=== PATIENT | male | born 1995 | race Caucasian/White ===

== ENCOUNTER 2018-01-28 19:59 | Observation (INO) | payer OTHER ==
--- NOTE | 2018-01-28 20:17 | ER Document Report ---
ED General - General Chief Complaint: Overdose Stated Complaint: POSSIBLE OVERDOSE Time Seen by Provider: 01/28/18 20:16 Mode of Arrival: Medic Information source: Patient Notes: 23-year-old male brought to the emergency department by EMS for heroin overdose. Patient had track fuller in his right forearm. He was found unresponsive with apneic breathing. EMS gave the patient a total of 4 of Narcan. In the emergency department, patient is awake, alert, oriented 3. He has no complaints at this time. He admits to injecting heroin into his forearm. He denies any other drug use. He denies any alcohol. - HPI Onset: Just prior to arrival Onset/Duration: Sudden Quality of pain: No pain Severity: None Pain Level: Denies Associated symptoms: None Exacerbated by: Denies Relieved by: Denies Similar symptoms previously: No Recently seen / treated by doctor: No - Related Data Allergies/Adverse Reactions: No Known Allergies Allergy (Unverified 01/29/18 00:21) Past Medical History - General Information source: Patient - Social History Smoking Status: Current Every Day Smoker Family History: Reviewed & Not Pertinent Review of Systems - Review of Systems Constitutional: No symptoms reported EENT: No symptoms reported Cardiovascular: No symptoms reported Respiratory: No symptoms reported Gastrointestinal: No symptoms reported Genitourinary: No symptoms reported Musculoskeletal: No symptoms reported Skin: No symptoms reported Neurological/Psychological: No symptoms reported -: Yes All other systems reviewed and negative Physical Exam - Vital signs Vitals: Pulse 116 H 01/28/18 20:12 - Notes Notes: PHYSICAL EXAMINATION: GENERAL: Well-appearing, well-nourished and in no acute distress. HEAD: Atraumatic, normocephalic. EYES: Pupils equal round and reactive to light, extraocular movements intact, sclera anicteric, conjunctiva are normal. ENT: Nares patent, oropharynx clear without exudates. Moist mucous membranes. NECK: Normal range of motion, supple without lymphadenopathy LUNGS: Breath sounds clear to auscultation bilaterally and equal. No wheezes rales or rhonchi. HEART: Tachycardic. ABDOMEN: Soft, nontender, nondistended abdomen. No guarding, no rebound. No masses appreciated. Musculoskeletal: Normal range of motion, no pitting or edema. No cyanosis. NEUROLOGICAL: Cranial nerves grossly intact. Normal speech, normal gait. Normal sensory, motor exams PSYCH: Normal mood, normal affect. SKIN: Warm, Dry, normal turgor, tract fuller of R forearm. Course - Re-evaluation Re-evalutation: 01/28/18 23:24 Patient has no complaints of chest pain. His troponin is elevated. No ST segment elevation seen on his EKG. I contacted the hospitalist for admission. 01/28/18 23:42 The hospitalist came to the ED to evaluate the patient. He would like a second troponin. If the troponin is negative with a normal EKG, he recommends discharge home. If the troponin is trending up, he will admit the patient. 01/29/18 00:44 Patient's troponin elevating. Still no chest pain. Hospitalist will admit patient for further evaluation. Patient currently stable. - Vital Signs Vital signs: Temp Pulse Resp BP Pulse Ox 116 H 01/28/18 20:12 - Laboratory Result Diagrams: 01/28/18 20:03 01/28/18 20:03 Laboratory results interpreted by me: 01/28/18 01/28/18 20:03 20:03 WBC 12.6 H Seg Neuts % (Manual) 89 H Lymphocytes % (Manual) 7 L Abs Neuts (Manual) 11.2 H Glucose 170 H - EKG Interpretation by Me Additional EKG results interpreted by me: 01/28/18 20:17 EKG: Ventricular rate 115, ME interval 152, castration 94, QTc 437, sinus tachycardia, right axis deviation 01/28/18 23:24 EKG: Ventricular rate 94, ME interval 148, castration 90, QTc 416, sinus rhythm , right axis deviation. Discharge - Discharge Clinical Impression: Heroin overdose Qualifiers: Encounter type: initial encounter Injury intent: accidental or unintentional Qualified Code(s): T40.1X1A - Poisoning by heroin, accidental (unintentional), initial encounter Condition: Good Disposition: ADMITTED OBSERVATION Admitting Provider: Hospitalist Unit Admitted: Telemetry
[2018-01-28] MEDS ORDERED: NORMAL SALINE 1000 ML 1,000 ML IV ONE (20:23)
[2018-01-28 20:34] LABS: HEMATOCRIT 44.6 % (37.9-51.0); HEMOGLOBIN 15.1 g/dL (13.5-17.0); MEAN CORPUSCULAR HEMOGLOBIN 29.3 pg (27.0-33.4); MEAN CORPUSCULAR HGB CONC 33.9 g/dL (32.0-36.0); MEAN CORPUSCULAR VOLUME 86 fl (80-97); PLATELET COUNT 190 10^3/uL (150-450); RED BLOOD COUNT 5.16 10^6/uL (4.35-5.55); WHITE BLOOD COUNT 12.6 10^3/uL (4.0-10.5)
[2018-01-28 20:46] LABS: ALANINE AMINOTRANSFERASE 70 U/L (21-72); ALBUMIN 3.7 g/dL (3.5-5.0); ALKALINE PHOSPHATASE 80 U/L (38-126); ANION GAP 12 (5-19); ASPARTATE AMINO TRANSFERASE 57 U/L (17-59); BILIRUBIN,DIRECT 0.4 mg/dL (0.0-0.4); BILIRUBIN,TOTAL 0.8 mg/dL (0.2-1.3); BLOOD UREA NITROGEN 7 mg/dL (7-20); CALCIUM 8.7 mg/dL (8.4-10.2); CARBON DIOXIDE 28 mmol/L (22-30); CHLORIDE 100 mmol/L (98-107); GLUCOSE 170 mg/dL (75-110); POTASSIUM 4.2 mmol/L (3.6-5.0); SODIUM 140.2 mmol/L (137-145); TOTAL PROTEIN 6.3 g/dL (6.3-8.2)
[2018-01-28 20:51] LABS: ABSOLUTE LYMPHOCYTES# (MANUAL) 0.9 10^3/uL (0.5-4.7); ABSOLUTE MONOCYTES # (MANUAL) 0.5 10^3/uL (0.1-1.4); ABSOLUTE NEUTROPHILS# (MANUAL) 11.2 10^3/uL (1.7-8.2); BASOPHILS % (MANUAL) 0 % (0-2); EOSINOPHILS % (MANUAL) 0 % (0-6); LYMPHOCYTES % (MANUAL) 7 % (13-45); MONOCYTES % (MANUAL) 4 % (3-13); SEGMENTED NEUTROPHILS % (MAN) 89 % (42-78); TOTAL CELLS COUNTED 100
[2018-01-28 20:53] LABS: PLATELET COMMENT ADEQUATE; RBC MORPHOLOGY COMMENT NORMO-CYTIC/CHROMIC
--- NOTE | 2018-01-28 23:00 | EKG REPORT ---
SEVERITY:- OTHERWISE NORMAL ECG - SINUS TACHYCARDIA RIGHT AXIS DEVIATION : Confirmed by: Rachelle Dawson MD 28-Jan-2018 22:59:37
--- NOTE | 2018-01-28 23:00 | EKG REPORT ---
SEVERITY:- OTHERWISE NORMAL ECG - SINUS RHYTHM BORDERLINE RIGHT AXIS DEVIATION : Confirmed by: Rachelle Dawson MD 28-Jan-2018 22:59:32
[2018-01-29] MEDS ORDERED: ONDANSETRON 4 MG TAB.RAPDIS PO PRN (01:14)
[2018-01-29] MEDS ORDERED: OXYCODONE-ACETAMINOPHEN 5-325 MG TABLET PO PRN (01:14)
--- NOTE | 2018-01-29 01:14 | PDOC H&P ---
History of Present Illness History of Present Illness: CHRIS LONDON is a 23 year old male patient brought by EMS unresponsive after he overdosed himself with heroin. After he was given 4 doses of Narcan patient become unresponsive. By the time he arrived which at ER patient is awake alert and oriented. Patient does not have other complaints. His blood work shows initial troponin 0 0.157 and the second set increased to 0.572. Patient does not have chest pain and no EKG changes. Patient does not have other chronic medical conditions and no family history of coronary artery disease. Patient is going to be admitted for observation. Past Medical History Medical History: None Past Surgical History Past Surgical History: Reports: None Social History Smoking Status: Current Every Day Smoker Hx Recreational Drug Use: Yes Drugs: Heroin - Advance Directive Resuscitation Status: Full Code Family History Family History: None, Reviewed & Not Pertinent Parental Family History Reviewed: Yes Children Family History Reviewed: Yes Sibling(s) Family History Reviewed.: Yes Medication/Allergy Allergies/Adverse Reactions: No Known Allergies Allergy (Unverified 01/29/18 00:21) Review of Systems Constitutional: PRESENT: as per HPI Eyes: ABSENT: visual disturbances Ears: ABSENT: hearing changes Cardiovascular: ABSENT: chest pain, dyspnea on exertion, edema, orthropnea, palpitations Respiratory: ABSENT: cough, hemoptysis Gastrointestinal: ABSENT: abdominal pain, constipation, diarrhea, hematemesis, hematochezia, nausea, vomiting Neurological: ABSENT: abnormal gait, abnormal speech, confusion, dizziness, focal weakness, syncope Physical Exam Vital Signs: Temp Pulse Resp BP Pulse Ox 116 H 01/28/18 20:12 Intake & Output 01/27/18 01/28/18 01/29/18 06:59 06:59 06:59 Weight 109.5 kg General appearance: PRESENT: no acute distress Head exam: PRESENT: atraumatic, normocephalic Mouth exam: PRESENT: dry mucosa Neck exam: ABSENT: carotid bruit, JVD, lymphadenopathy, thyromegaly Respiratory exam: PRESENT: clear to auscultation brandon. ABSENT: rales, rhonchi, wheezes Cardiovascular exam: PRESENT: tachycardia Neurological exam: PRESENT: alert, awake, oriented to time, oriented to situation Skin exam: PRESENT: other - Track of needle Kwabena on the volar aspect of his right arm Results Laboratory Results: 01/28/18 20:03 01/28/18 20:03 01/28/18 01/28/18 20:03 20:03 WBC 12.6 H RBC 5.16 Hgb 15.1 Hct 44.6 MCV 86 MCH 29.3 MCHC 33.9 RDW 13.0 Plt Count 190 Seg Neutrophils % Not Reportable Lymphocytes % Not Reportable Monocytes % Not Reportable Eosinophils % Not Reportable Basophils % Not Reportable Absolute Neutrophils Not Reportable Absolute Lymphocytes Not Reportable Absolute Monocytes Not Reportable Absolute Eosinophils Not Reportable Absolute Basophils Not Reportable Sodium 140.2 Potassium 4.2 Chloride 100 Carbon Dioxide 28 Anion Gap 12 BUN 7 Creatinine 0.96 Est GFR ( Amer) > 60 Est GFR (Non-Af Amer) > 60 Glucose 170 H Calcium 8.7 Total Bilirubin 0.8 AST 57 ALT 70 Alkaline Phosphatase 80 Total Protein 6.3 Albumin 3.7 01/28/18 01/28/18 20:03 23:30 Troponin I 0.157 0.572 Assessment & Plan - Diagnosis (1) Unresponsive Is this a current diagnosis for this admission?: Yes Plan: Resolved. Due to #2 (2) Heroin overdose Is this a current diagnosis for this admission?: Yes Plan: Patient counseled and encouraged to quit using illicit drug.
[2018-01-29 01:41] LABS: APPEARANCE,URINE CLEAR; BILIRUBIN,URINE NEGATIVE (NEGATIVE); CALCIUM OXALATE CRYSTALS,URINE RARE /HPF; COLOR,URINE YELLOW; GLUCOSE, URINE 50 mg/dL (NEGATIVE); KETONES,URINE NEGATIVE (NEGATIVE); LEUKOCYTE ESTERASE,URINE NEGATIVE (NEGATIVE); NITRITE,URINE NEGATIVE (NEGATIVE); PROTEIN,URINE NEGATIVE (NEGATIVE); URINE SPECIFIC GRAVITY 1.018
[2018-01-29 01:55] LABS: URINE AMPHETAMINES SCREEN NEGATIVE; URINE BARBITURATES SCREEN NEGATIVE; URINE BENZODIAZEPINES SCREEN NEGATIVE; URINE COCAINE SCREEN NEGATIVE; URINE MARIJUANA (THC) SCREEN UNCONFIRMED POSITIVE; URINE METHADONE SCREEN NEGATIVE; URINE PHENCYCLIDINE SCREEN NEGATIVE
[2018-01-29] MEDS ORDERED: NORMAL SALINE 1000 ML 1,000 ML IV PRN (07:48)
[2018-01-29 08:22] LABS: HEMATOCRIT 40.4 % (37.9-51.0); MEAN CORPUSCULAR HEMOGLOBIN 29.4 pg (27.0-33.4); MEAN CORPUSCULAR HGB CONC 34.7 g/dL (32.0-36.0); MEAN CORPUSCULAR VOLUME 85 fl (80-97); PLATELET COUNT 177 10^3/uL (150-450); RED BLOOD COUNT 4.75 10^6/uL (4.35-5.55); RED CELL DISTRIBUTION WIDTH 12.9 % (11.5-14.0); WHITE BLOOD COUNT 7.1 10^3/uL (4.0-10.5)
[2018-01-29 08:39] LABS: ALANINE AMINOTRANSFERASE 70 U/L (21-72); ALBUMIN 3.3 g/dL (3.5-5.0); ALKALINE PHOSPHATASE 57 U/L (38-126); ANION GAP 6 (5-19); ASPARTATE AMINO TRANSFERASE 52 U/L (17-59); BILIRUBIN,DIRECT 0.2 mg/dL (0.0-0.4); BILIRUBIN,TOTAL 0.9 mg/dL (0.2-1.3); BLOOD UREA NITROGEN 6 mg/dL (7-20); CALCIUM 8.8 mg/dL (8.4-10.2); CARBON DIOXIDE 31 mmol/L (22-30); CHLORIDE 103 mmol/L (98-107); CREATINE KINASE 97 U/L (55-170); GLUCOSE 92 mg/dL (75-110); POTASSIUM 3.7 mmol/L (3.6-5.0); TOTAL PROTEIN 5.8 g/dL (6.3-8.2)
[2018-01-29] MEDS ORDERED: ENOXAPARIN SODIUM INJ 40 MG/0.4 ML DISP.SYRIN SUBCUT SCH (10:00)
--- NOTE | 2018-01-29 12:15 | PDOC DISCHARGE SUMMARY ---
General - Admit/Disc Date/PCP Admission Date/Primary Care Provider: 01/29/18 01:32 Discharge Date: 01/29/18 - Discharge Diagnosis (1) Heroin overdose Is this a current diagnosis for this admission?: Yes (2) Unresponsive Is this a current diagnosis for this admission?: Yes - Additional Information Resuscitation Status: Full Code Discharge Diet: As Tolerated Discharge Activity: Activity As Tolerated Home Medications: No Home Medications 01/29/18 History of Present Illness History of Present Illness: H&P per Dr. Yap: CHRIS LONDON is a 23 year old male patient brought by EMS unresponsive after he overdosed himself with heroin. After he was given 4 doses of Narcan patient become unresponsive. By the time he arrived which at ER patient is awake alert and oriented. Patient does not have other complaints. His blood work shows initial troponin 0 0.157 and the second set increased to 0.572. Patient does not have chest pain and no EKG changes. Patient does not have other chronic medical conditions and no family history of coronary artery disease. Patient is going to be admitted for observation. Hospital Course Hospital Course: The patient was admitted to [facility] hospitalist service for an opiate overdose. He was found down by EMS, unresponsive with agonal breathing. The patient was revived by EMS following administration of (total) 4 mg Narcan. Upon arrival to [facility] ED the patient was A&O. Initial EKG demonstrated sinus tachycardia, no evidence of acute infarction or ischemia. Initial troponin 0.157, repeat troponin 0.572. The patient denied chest pain, but the decision was made to admit the patient to trend rising troponins and observe for EKG changes. The following troponin was 0.45, there were no EKG changes. The patient continued to deny chest pain. Additionally, his creatinine kinase was 97. No evidence of STEMI/NSTEMI or rhabdomyolysis. His repeat EKG the following morning showed NSR, no acute pathology. The patient states he uses heroin every other day to relieve the chronic pain he has in his feet. 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 The patient reports he previously was going to an orthopedic doctor for his foot pain, and they recommended physical therapy and gabapentin. The patient states that these treatments did not relieve his foot pain. The decision was made to discharge the patient home. [place] [facility] [place]. The patient was not sent home with any prescriptions. For any further details about his hospitalization, please refer to the EMR. Physical Exam Vital Signs: Temp Pulse Resp BP Pulse Ox 97.6 F 76 17 115/65 97 01/29/18 11:24 01/29/18 11:24 01/29/18 11:24 01/29/18 11:24 01/29/18 11:24 Intake & Output 01/28/18 01/29/18 01/30/18 06:59 06:59 06:59 Intake Total 100 754 Output Total 350 Balance 100 404 Weight 98.1 kg Results Laboratory Results: 01/29/18 08:03 01/29/18 08:03 01/29/18 01/29/18 08:03 08:03 WBC 7.1 RBC 4.75 Hgb 14.0 Hct 40.4 MCV 85 MCH 29.4 MCHC 34.7 RDW 12.9 Plt Count 177 Sodium 140.0 Potassium 3.7 Chloride 103 Carbon Dioxide 31 H Anion Gap 6 BUN 6 L Creatinine 0.65 Est GFR ( Amer) > 60 Est GFR (Non-Af Amer) > 60 Glucose 92 Calcium 8.8 Total Bilirubin 0.9 AST 52 ALT 70 Alkaline Phosphatase 57 Total Protein 5.8 L Albumin 3.3 L 01/29/18 01/29/18 01/29/18 03:45 08:03 08:03 Creatine Kinase 97 CK-MB (CK-2) 0.81 Troponin I 0.491 Status: Imported from PACS Qualifiers - * PATIENT BEING DISCHARGED WITH ANY OF THE FOLLOWING DIAGNOSIS: No Plan Time Spent: Less than 30 Minutes
[2018-01-29 12:49] VITALS: BP 130/77
--- NOTE | 2018-01-29 19:12 | EKG REPORT ---
SEVERITY:- NORMAL ECG - SINUS RHYTHM : Confirmed by: Rachelle Dawson MD 29-Jan-2018 19:10:49
[2018-01-30 14:38] LABS: HEPATITIS A AB IGM Negative (Negative); HEPATITIS B CORE AB IGM Negative (Negative); HEPATITS B SURFACE ANTIGEN Negative (Negative)
[2018-01-30 14:55] LABS: HEPATITIS C VIRUS ANTIBODY <0.1 s/co ratio (0.0-0.9)
== END 2018-01-29 13:35 | disposition home or self-care (01) ==
LOC: ER 19:59 → EH 01-29 01:32 → 4N 01-29 05:35
PROVIDERS: ADMIT Internal Medicine; ATTEND Internal Medicine
DX: T40.1X1A Poisoning by heroin, accidental (unintentional), initial encounter (principal); F17.200 Nicotine dependence, unspecified, uncomplicated
CPT/HCPCS: 93005 ×2; 99285; 96360; 36415 ×2; 82553; 82550; 85025; 85027; 80053 ×2; 81001; 84484 ×2; 80307; 80074; 93010 ×2; G0378 ×2; J1650; J3490; J7030 ×2

== ENCOUNTER 2018-07-29 13:07 | Emergency (ER) | payer SELFPAY ==
--- NOTE | 2018-07-29 14:43 | ER Document Report ---
ED Medical Screen (RME) - General Chief Complaint: Abscess Stated Complaint: UNDER ARM PAIN Time Seen by Provider: 07/29/18 14:34 Notes: Patient is a 23-year-old male that presents to the emergency department for chief complaint of abscess under the left armpit. Patient states he knows about 1 week ago seem to get worse, he does have a history of this in the past, has had one on the right side.. ROS: Other than noted above, the 12 point review of systems was reviewed with the patient and were negative, all pertinent findings are included in the HPI. PHYSICAL EXAMINATION: Vital signs reviewed. GENERAL: Well-appearing, well-nourished and in no acute distress. HEAD: Atraumatic, normocephalic. EYES: Pupils equal round extraocular movements intact, conjunctiva are normal. ENT: Nares patent NECK: Normal range of motion CV: Heart regular rate and rhythm LUNGS: No respiratory distress Musculoskeletal: Normal range of motion, palpable indurated abscess in the left axilla, visualized under ultrasound, there was a pocket of fluid noted, that could be incised and drained. NEUROLOGICAL: Normal speech PSYCH: Normal mood, normal affect. MDM: Patient seen and examined for rapid initial assessment. Vital signs reviewed. A comprehensive ED assessment and evaluation of the patient, analysis of test results and completion of the medical decision making process will be conducted by additional ED providers. *Note is created using voice recognition software and may contain spelling, syntax or grammatical errors. TRAVEL OUTSIDE OF THE [place] IN LAST 30 DAYS: No - Related Data Allergies/Adverse Reactions: No Known Allergies Allergy (Unverified 01/29/18 00:21) Past Medical History - Social History Chew tobacco use (# tins/day): No Frequency of alcohol use: None Drug Abuse: Marijuana Renal/ Medical History: Denies: Hx Peritoneal Dialysis Psychiatric Medical History: Reports: Hx Depression - Immunizations Influenza Administration Date for 05/2017 - 09/2017 Season: 05/01/17 Physical Exam - Vital signs Vitals: Temp Pulse Resp BP Pulse Ox 98 F 90 16 135/77 H 99 07/29/18 13:44 07/29/18 13:44 07/29/18 13:44 07/29/18 13:44 07/29/18 13:44 Course - Vital Signs Vital signs: Temp Pulse Resp BP Pulse Ox 98 F 90 16 135/77 H 99 07/29/18 13:44 07/29/18 13:44 07/29/18 13:44 07/29/18 13:44 07/29/18 13:44
[2018-07-29] MEDS ORDERED: LIDOCAINE 1% INJ-PF (10 MG/ML) 30 ML SDV INJ ONE (14:48)
--- NOTE | 2018-07-29 17:12 | ER Document Report ---
HPI - HPI Time Seen by Provider: 07/29/18 14:34 Pain Level: 3 Notes: Patient is a 23-year-old male who presents with chief complaint of abscess to his left axilla. Patient reports history of same in the past. Patient reports recent hepatitis C diagnosis. Patient denies any history of MRSA. Reports mild fevers at home. Past Medical History - General Information source: Patient - Social History Smoking Status: Never Smoker Chew tobacco use (# tins/day): No Frequency of alcohol use: None Drug Abuse: Marijuana Family History: None, Reviewed & Not Pertinent Patient has suicidal ideation: No Patient has homicidal ideation: No Renal/ Medical History: Denies: Hx Peritoneal Dialysis Psychiatric Medical History: Reports: Hx Depression Infectious Medical History: Reports: Hx Hepatitis - C Surgical Hx: Negative - Immunizations Immunizations up to date: Yes Vertical Provider Document - CONSTITUTIONAL Notes: PHYSICAL EXAMINATION: GENERAL: Well-appearing, well-nourished and in no acute distress. HEAD: Atraumatic, normocephalic. EYES: Pupils equal round extraocular movements intact, conjunctiva are normal. ENT: Nares patent NECK: Normal range of motion LUNGS: No respiratory distress Musculoskeletal: Normal range of motion NEUROLOGICAL: Normal speech, normal gait. PSYCH: Normal mood, normal affect. SKIN: Warm, Dry, normal turgor, no rashes or lesions noted. Area of induration with fluctuance noted to left axilla, surrounding erythema extending down into the bicep. - INFECTION CONTROL TRAVEL OUTSIDE OF THE [place] IN LAST 30 DAYS: No Course - Re-evaluation Re-evalutation: Abscess was incised and drained, see procedure note. Patient tolerated well. Patient will be placed on p.o. antibiotics and discharged home. Discussed the importance of adherence to the antibiotic regimen in completing the entire course. - Vital Signs Vital signs: Temp Pulse Resp BP Pulse Ox 98 F 90 16 135/77 H 99 07/29/18 13:44 07/29/18 13:44 07/29/18 13:44 07/29/18 13:44 07/29/18 13:44 Procedures - Incision and Drainage Left axilla Type: Simple Anesthetic type: 1% Lidocaine Blade size: 11 I&D procedure: Betadine prep applied Incision Method: Incision made by scalpel Discharge - Discharge Clinical Impression: Abscess Condition: Stable Disposition: HOME, SELF-CARE Additional Instructions: ABSCESS: You have an abscess (boil). This a pus-forming infection, usually due to staph. Some boils may be left to drain on their own, but most require lancing. From the time the tender lump first appears, it may be three or four days before the abscess is ready to whitley. Local heat and rest help at this stage of treatment. An antibiotic may prevent spread of the infection. Once the abscess is opened, packing may be placed into it. This is done so pus is not sealed inside by premature closure of the cavity. The packing will be removed at your follow-up visit or you may be advised to remove it yourself at home. Sometimes this packing must be replaced a few times during healing. The wound will heal with surprisingly little scar. Depending on the size and location of an abscess, healing can take one to four weeks. You may shower and wash the area around the incision site two or three times a day. Antibiotics may be prescribed, but are usually not necessary after an abscess has been drained. If you develop fever, chills, worsening pain, or increasing swelling in the area, call the doctor or return immediately. POST INCISION AND DRAINAGE: You have had an incision made to allow drainage of an abscess. The incision must remain open so that pus and debris can drain from the wound. If the abscess cavity is large, packing is placed. This keeps the tissues from collapsing and trapping pus inside, while the body shrinks the cavity. The packing may need to be replaced every day or two. The physician will instruct you on the packing. Keep a bulky dressing over the area. Replace it if it becomes saturated with blood or pus. Do not disturb the packing (if present). You may shower and cleanse the area with gentle soap and warm water two or three times a day. Local warmth may be soothing, and may promote faster healing. Return if you develop high fever or chills, or if you note spreading redness, increasing swelling, or increasing tenderness. MRSA CELLULITIS: You have an infection of your skin and underlying soft tissues called cellulitis. This is due to bacteria, which can enter through any break in the skin, or even through an irritated hair follicle. Untreated, cellulitis will usually worsen and may form an abscess which requires draining. Although many bacterial organisms can cause cellulitis and abscess formations, the most likely bacteria is Methicillin-Resistant Staph Aureus, or MRSA for short. Antibiotics are required. Usually, warm packs or warm soaks, and elevation of the infected area are recommended. You should start getting better within 24 to 36 hours. Most infections respond quickly to the right medication. Follow-up care is important, however, to check for abscess (boil) formation, unsuspected foreign body, or resistant infection. If you develop fever, chills, or if the area of infection is becoming rapidly more swollen or painful, call the doctor at once. CEPHALEXIN: The antibiotic you've been prescribed is a member of the cephalosporin class. This type of antibiotic covers a wide variety of infections, including those of the skin, lungs, and urinary tract. It's useful for staph infections. This antibiotic is slightly similar to the penicillin family. In rare cases, a person who is allergic to penicillin will also be allergic to this medication. If you have had a severe allergic reaction to penicillin, and have not taken this antibiotic since that time, notify your doctor. Antibiotics which cover many germs ("broad spectrum" antibiotics) are more likely to cause diarrhea or "yeast" infections. Women prone to vaginal yeast problems may suffer an attack after taking this antibiotic. In infants, oral thrush (white spots "stuck" on the cheek) or yeast diaper rash may result. See your doctor if these problems occur. Call at once if you develop itching, hives, shortness of breath, or lightheadedness. TRIMETHOPRIM-SULFA: You have been given a prescription for trimethoprim-sulfa (TMS, Septra, Bactrim). This is a combination antibiotic of the sulfa class, often used for urinary tract infections, middle ear infections, bronchitis, shigella intestinal infection, and Pneumocystis pneumonia. TMS is usually well-tolerated. Occasional side effects include nausea and decreased appetite. Septra is not recommended for infants less than two months of age. Do not take this medication if you have experienced severe side effects or allergy to sulfa medicine. You should stop this medicine at once and contact your physician if you develop any rash, joint pain, shortness of breath, bruising, or jaundice (yellow color in the skin), or if you develop any other new or unusual symptoms. FOLLOW-UP CARE: Most simple abscesses will not require a follow up visit. If you had packing placed in the abscess, remove it as instructed by the physician. If you have been referred to a physician for follow-up care, call the physicians office for an appointment as you were instructed or within the next two days. If you experience worsening or a significant change in your symptoms, return to the Emergency Department at any time for re-evaluation. Please complete the entire course of antibiotics even if your symptoms resolve. Soak the area in warm water at least 3 times a day. It would be hel pful if you added some Epsom salt to the water. Return to the emergency department if you develop worsening symptoms such as development of fevers, worsening pain or red streaking from the area. Prescriptions: Cephalexin [Cephalexin 500 MG Tablet] 1 tab PO QID #40 tablet Sulfamethoxazole/Trimethoprim [Bactrim Ds Tablet] 1 tab PO BID #28 tablet
[2018-07-29 17:23] VITALS: BP 135/72
== END 2018-07-29 17:23 | disposition home or self-care (01) ==
LOC: ER 13:07
PROC: 0H9CXZZ Drainage of Left Upper Arm Skin, External Approach (ICD-10-PCS; principal; 2018-07-29)
DX: L02.412 Cutaneous abscess of left axilla (principal); R50.9 Fever, unspecified; B19.20 Unspecified viral hepatitis C without hepatic coma
CPT/HCPCS: 99283; 10060; J3490

== ENCOUNTER 2019-11-19 13:17 | Emergency (ER) | payer SELFPAY ==
[2019-11-19] MEDS ORDERED: OXYCODONE HCL IR 5 MG TABLET PO ONE (13:30)
--- NOTE | 2019-11-19 13:32 | ER Document Report ---
HPI - HPI Time Seen by Provider: 11/19/19 13:28 Onset: Other - 5 days ago Onset/Duration: Persistent Quality of pain: Sharp Pain Level: 4 Context: Patient states that he was trying to repair a roof 5 days ago and slipped falling from the roof. Patient reports falling about 15 foot onto a gravel surface landing on the left lower extremity. Patient complains of left foot, ankle, lower leg pain. Patient denies any head injury or loss of consciousness. Associated Symptoms: Other - Left leg and foot pain Exacerbated by: Standing, Movement, Walking Relieved by: Denies Similar symptoms previously: No Recently seen / treated by doctor: No - ROS ROS below otherwise negative: Yes Systems Reviewed and Negative: Yes All other systems reviewed and negative - NEURO Neurology: DENIES: Headache, Weakness - GASTROINTESTINAL Gastrointestinal: DENIES: Nausea - MUSCULOSKELETAL Musculoskeletal: REPORTS: Extremity pain, Swelling - DERM Skin Color: Ecchymosis Skin Problems: None Past Medical History - General Information source: Patient - Social History Smoking Status: Current Every Day Smoker Chew tobacco use (# tins/day): No Frequency of alcohol use: None Drug Abuse: None Lives with: Family Family History: None, Reviewed & Not Pertinent Patient has suicidal ideation: No Patient has homicidal ideation: No Renal/ Medical History: Denies: Hx Peritoneal Dialysis GI Medical History: Reports: Hx Hepatitis - C Psychiatric Medical History: Reports: Hx Depression Infectious Medical History: Reports: Hx Hepatitis - C Surgical Hx: Negative - Immunizations Immunizations up to date: Yes Vertical Provider Document - CONSTITUTIONAL Agree With Documented VS: Yes Exam Limitations: No Limitations General Appearance: WD/WN, No Apparent Distress - INFECTION CONTROL TRAVEL OUTSIDE OF THE [place] IN LAST 30 DAYS: No - HEENT HEENT: Atraumatic, Normocephalic - NECK Neck: Normal Inspection, Supple - RESPIRATORY Respiratory: Breath Sounds Normal, No Respiratory Distress, Chest Non-Tender - CARDIOVASCULAR Cardiovascular: Regular Rate, Regular Rhythm, No Murmur Pulses: Normal: Dorsalis pedis - BACK Back: Abnormal Inspection - Left lower lumbar paraspinal tenderness. negative: CVA Tenderness-Right, CVA Tenderness-Left - MUSCULOSKELETAL/EXTREMETIES Musculoskeletal/Extremeties: Tender - Tenderness to distal half of the left lower extremity with swelling noted to the distal third of the left lower extremity. 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 Umana. Awaiting return call at this time for consultation. 11/19/19 16:[address] Umana who recommends CT imaging of the injury and placing patient in a posterior splint. Advises outpatient follow-up in the office for further management. - Vital Signs Vital signs: Temp Pulse Resp BP Pulse Ox 97.4 F 97 17 141/75 H 97 11/19/19 13:21 11/19/19 13:21 11/19/19 13:21 11/19/19 13:21 11/19/19 13:21 - Diagnostic Test Radiology reviewed: Image reviewed, Reports reviewed Procedures - Immobilization Left Ankle Pre-Proc Neuro Vasc Exam: Normal Immobilizer type: Short Leg Posterior Performed by: PCT Post-Proc Neuro Vasc Exam: Normal Alignment checked and good: Yes Discharge - Discharge Clinical Impression: Fall from roof Qualifiers: Encounter type: initial encounter Qualified Code(s): W13.2XXA - Fall from, out of or through roof, initial encounter Talus fracture Qualifiers: Encounter type: initial encounter Fracture type: closed Talus location: neck Fracture alignment: nondisplaced Laterality: left Qualified Code(s): S92.115A - Nondisplaced fracture of neck of left talus, initial encounter for closed fracture Low back pain Qualifiers: Chronicity: unspecified Back pain laterality: left Sciatica presence: without sciatica Qualified Code(s): M54.5 - Low back pain Condition: Stable Disposition: HOME, SELF-CARE Instructions: Use of Crutches ([facility]), Fracture ([facility]), Low Back Pain ([facility]), Oral Narcotic Medication ([facility]), Splint Precautions ([facility]) Additional Instructions: Return immediately for any new or worsening symptoms Followup with Dr. Umana for further evaluation. This injury will likely require surgery. Prescriptions: Naproxen [Naprosyn 250 Nmg Tablet] 1 tab PO BID #14 tablet Hydrocodone/Acetaminophen [[place] 5-325 mg Tablet] 1 tab PO Q6 PRN #15 tablet PRN Reason: Referrals: FINA UMANA DO [ACTIVE STAFF] - Follow up tomorrow
--- NOTE | 2019-11-19 14:25 | RADIOLOGY REPORT (SQ) ---
EXAM DESCRIPTION: FOOT LEFT COMPLETE IMAGES COMPLETED DATE/TIME: 11/19/2019 2:04 pm REASON FOR STUDY: fall from roof, L foot/ankle pain COMPARISON: None. NUMBER OF VIEWS: Three views. TECHNIQUE: AP, lateral and oblique radiographic images acquired of the left foot. LIMITATIONS: None. FINDINGS: MINERALIZATION: Normal. BONES: Vertically oriented fracture through the talar neck without significant angulation or displace ment. No additional fractures identified. JOINTS: No dislocation. Small ankle joint effusion. SOFT TISSUES: Soft tissue swelling about the ankle. OTHER: No other significant finding. IMPRESSION: Vertically oriented fracture through the talar neck without significant angulation or di splacement. TECHNICAL DOCUMENTATION: JOB ID: [id number] 2010 [employer]- All Rights Reserved Reading location - IP/workstation name: [email or web address]
--- NOTE | 2019-11-19 14:27 | RADIOLOGY REPORT (SQ) ---
EXAM DESCRIPTION: TIBIA FIBULA LEFT IMAGES COMPLETED DATE/TIME: 11/19/2019 2:04 pm REASON FOR STUDY: fall from roof, LLE pain COMPARISON: None. NUMBER OF VIEWS: Two views. TECHNIQUE: Two radiographic images acquired of the left tibia and fibula to include the knee and ank le in at least one projection. LIMITATIONS: None. FINDINGS: MINERALIZATION: Normal. BONES: No fracture or dislocation of the tibia or fibula. Sclerotic band and lucency along the root, better seen on same day ankle radiographs. SOFT TISSUES: No obvious swelling or foreign body. OTHER: No other significant finding. IMPRESSION: No fracture or dislocation of the tibia or fibula. Vertically oriented fracture through the talar neck, better seen on same day ankle radiograph. TECHNICAL DOCUMENTATION: JOB ID: [id number] 2010 [employer]- All Rights Reserved Reading location - IP/workstation name: [email or web address]
--- NOTE | 2019-11-19 14:31 | RADIOLOGY REPORT (SQ) ---
EXAM DESCRIPTION: L SPINE WHOLE IMAGES COMPLETED DATE/TIME: 11/19/2019 2:04 pm REASON FOR STUDY: fall from roof, L lower back pain COMPARISON: None. NUMBER OF VIEWS: Five views including obliques. TECHNIQUE: AP, lateral, oblique, and sacral radiographic images acquired of the lumbar spine. LIMITATIONS: None. FINDINGS: MINERALIZATION: Normal. SEGMENTATION: 5 [id number]-[id number] lumbar vertebral bodies. ALIGNMENT: Normal. VERTEBRAE: No definite fracture. Mild anterior wedging at T12 and L1, likely physiologic. Multileve l endplate irregularity throughout the lumbar spine. DISCS: Mild degenerative changes with disc height loss at L3-4, L4-5 and L5-S1. POSTERIOR ELEMENTS: Pedicles and facets are intact. No pars defect or posterior arch defects. HARDWARE: None in the spine. PARASPINAL SOFT TISSUES: Normal. PELVIS: Intact as visualized. No fractures or worrisome bone lesions. SI joints intact. OTHER: No other significant finding. IMPRESSION: 1. Mild anterior wedging at T12 and L1 which is favored to be physiologic. If high cli nical concern for acute traumatic injury recommend MRI. 2. Mild disc height loss from L3-S1. TECHNICAL DOCUMENTATION: JOB ID: [id number] 2010 [employer]- All Rights Reserved Reading location - IP/workstation name: [email or web address]
--- NOTE | 2019-11-19 14:49 | RADIOLOGY REPORT (SQ) ---
EXAM DESCRIPTION: ANKLE LEFT COMPLETE IMAGES COMPLETED DATE/TIME: 11/19/2019 2:04 pm REASON FOR STUDY: fall from roof, L ankle/foot pain COMPARISON: None. NUMBER OF VIEWS: Three views. TECHNIQUE: AP, lateral, and oblique radiographic images acquired of the left ankle. LIMITATIONS: None. FINDINGS: MINERALIZATION: Normal. BONES: Vertically oriented fracture through the talar neck without significant displacement JOINTS: No effusions. SOFT TISSUES: No soft tissue swelling. No foreign body. OTHER: No other significant finding. IMPRESSION: Vertically oriented fracture through the talar neck without significant displacement. TECHNICAL DOCUMENTATION: JOB ID: [id number] 2010 [employer]- All Rights Reserved Reading location - IP/workstation name: [email or web address]
--- NOTE | 2019-11-19 16:02 | RADIOLOGY REPORT (SQ) ---
EXAM DESCRIPTION: MRI LUMBAR SPINE WITHOUT IMAGES COMPLETED DATE/TIME: 11/19/2019 3:34 pm REASON FOR STUDY: eval t12-L1, low back pain, fall from roof COMPARISON: None. TECHNIQUE: Sagittal and Axial imaging includes T1, T2, STIR and gradient echo sequences. Coronal T2/ HASTE imaging. LIMITATIONS: None. FINDINGS: VISUALIZED UPPER ABDOMEN: Limited evaluation. No acute or suspicious findings suggested. SEGMENTATION: No transitional anatomy. The lowest well-developed disc space is labeled L5-S1. ALIGNMENT: Straightening of the normal lumbar lordosis. VERTEBRAE: There is multilevel endplate change with multiple Schmorl's nodes noted throughout the ent gabby lumbar spine. No definite compression fracture. BONE MARROW: Multilevel Schmorl's node. No marrow replacement process. No definitive bony edema. DISC SIGNAL: There is multilevel disc desiccation and disc height loss throughout the lumbar spine wi th Schmorl's nodes. No high-grade spinal canal stenosis. POSTERIOR ELEMENTS: Generally intact. No pars defect evident. HARDWARE: None in the spine. CORD AND CONUS: Normal in size and signal intensity. Conus medullaris terminates at L1 . SOFT TISSUES: No aortic aneurysm seen. No bulky retroperitoneal adenopathy or mass. No paraspinal mas s or fluid. L1-L2: Disc desiccation and height loss with Schmorl's node. No significant spinal canal stenosis or neural foraminal narrowing. L2-L3: Disc desiccation height loss with Schmorl's node at L3 superior endplate. No significant spin al canal stenosis or neural foraminal narrowing. L3-L4: Disc height loss with small broad disc bulge. No significant spinal canal stenosis. There i s [id number] bilateral neural foraminal narrowing, left greater than right L4-L5: Disc desiccation and height loss with L4-L5 Schmorl's nodes. There is broad circumferential d isc bulge with no significant spinal canal stenosis. There is contact of the bilateral traversing ne rve roots. There is moderate bilateral neural foraminal narrowing secondary to disc disease, right g reater than left. L5-S1: Disc desiccation and height loss with L5 and S1 Schmorl's nodes. There is a broad disc bulge with no significant spinal canal stenosis. There is moderate to severe bilateral neural foraminal na rrowing, right greater than left. LOWER THORACIC: Incompletely imaged. No stenosis seen. SACRUM: Visualized upper sacrum intact. OTHER: No other significant findings. IMPRESSION: 1. No definite acute bony abnormality of the lumbar spine. 2. Multilevel disc desiccation and height loss, Schmorl's nodes and irregular endplates throughout t he lumbar spine suggestive of Scheuermann disease. There is moderate to severe bilateral neural fora [place] narrowing greatest at L4-5 and L5-S1 secondary to disc disease. Level specific findings as abo ve. TECHNICAL DOCUMENTATION: JOB ID: [id number] 2010 [employer]- All Rights Reserved Reading location - IP/workstation name: [email or web address]
--- NOTE | 2019-11-19 16:53 | RADIOLOGY REPORT (SQ) ---
EXAM DESCRIPTION: CT LT LOWER EXTREMITY WITHOUT IMAGES COMPLETED DATE/TIME: 11/19/2019 4:36 pm REASON FOR STUDY: talar fx, eval per ortho COMPARISON: Radiographs from earlier. TECHNIQUE: Axial imaging performed through the left ankle with reformatted coronal and sagittal imag ing windowed for bone and soft tissues. Images saved to PACS. 3D IMAGING: Were 3D images as MIP, SSD, or volume rendering performed at the work station? Yes. All CT scanners at this facility use dose modulation, iterative reconstruction, and/or weight based d osing when appropriate to reduce radiation dose to as low as reasonably achievable (ALARA). [facility]: Dose Right [facility]: CareDose [facility]: Dose Right [facility]: Teradose 4D [facility]: [employer] LIMITATIONS: None. RADIATION DOSE: CT Rad equipment meets quality standard of care and radiation dose reduction techniq ues were employed. CTDIvol: 4.6 mGy. DLP: 117 mGy-cm. mGy. FINDINGS: SOFT TISSUES: No drainable fluid collections. Mild edema about the ankle. No large effus ion. BONES: As seen radiographically, there is a fracture of the talus. This involves the junction of the anterior talar dome and neck. There is extension into the sinus tarsi. Tiny comminution fragments are suggested along the medial sub talar articulation, possibly off the calcaneus. Please reference coronal series 400, image 35 and adjacent slices, sagittal series 401 image 19 and adjacent slices. MINERALIZATION: Normal. OTHER: No other significant finding. IMPRESSION: Talus fracture as above. No significant displacement. TECHNICAL DOCUMENTATION: JOB ID: [id number] Quality ID # [id number]: Final reports with documentation of one or more dose reduction techniques (e.g., Au tomated exposure control, adjustment of the mA and/or kV according to patient size, use of iterative reconstruction technique) 2010 [employer]- All Rights Reserved Reading location - IP/workstation name: [email or web address]
[2019-11-19 17:00] VITALS: BP 146/83
== END 2019-11-19 17:00 | disposition home or self-care (01) ==
LOC: ER 13:17
DX: S92.115A Nondisplaced fracture of neck of left talus, initial encounter for closed fracture (principal); S90.02XA Contusion of left ankle, initial encounter; M54.5 Low back pain; W13.2XXA Fall from, out of or through roof, initial encounter; Y93.H9 Activity, other involving exterior property and land maintenance, building and construction; F17.200 Nicotine dependence, unspecified, uncomplicated
CPT/HCPCS: 72110; 72148; 99284

== ENCOUNTER 2019-12-29 16:13 | Emergency (ER) | payer SELFPAY ==
[2019-12-29] MEDS ORDERED: NORMAL SALINE 1000 ML 1,000 ML IV ONE (17:12)
--- NOTE | 2019-12-29 17:13 | ER Document Report ---
ED Neck/Back Problem - General Mode of Arrival: Wheelchair Information source: Patient TRAVEL OUTSIDE OF THE [place] IN LAST 30 DAYS: No - HPI Patient complains to provider of: Pain, Lower back Onset: Other - 4 days Timing: Worse Quality of pain: Sharp Pain Level: 5 Associated symptoms: Chills, Fever, Lower back pain. denies: Abdominal pain, Sensory loss, Sweaty, Unable to urinate Relieved by: Nothing Similar symptoms previously: Yes Recently seen / treated by doctor: No <SUNIL BALDWIN - Last Filed: 12/29/19 20:18> <ROBERT MENDEZ - Last Filed: 12/29/19 23:13> - General Chief Complaint: Back Pain Stated Complaint: BACK PAIN, LEFT FOOT PAIN Time Seen by Provider: 12/29/19 16:45 Notes: Patient presents complaining of low back pain for the past 4 5 days. Patient states that he did injure his back about a month and a half ago after falling off of a roof. Patient denies any urinary retention or incontinence. Patient does report moving a washer and dryer 5 days ago which she feels aggravated his back pain. Patient did have a fever today of 101.7. Patient denies any other problems or complaints. Patient denies any known source of the fever. Patient does report a previous history of IV drug use, although denies any recent IV drug use. 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 denies: Chest pain Respiratory: No symptoms reported. denies: Cough, Short of breath Gastrointestinal: No symptoms reported Genitourinary: No symptoms reported Male Genitourinary: No symptoms reported Musculoskeletal: Back pain Skin: No symptoms reported. denies: Rash Hematologic/Lymphatic: No symptoms reported Neurological/Psychological: No symptoms reported <SUNIL BALDWIN - Last Filed: 12/29/19 20:18> Physical Exam - General General appearance: Appears well, Alert In distress: Mild - HEENT Head: Normocephalic, Atraumatic Eyes: Normal Conjunctiva: Normal Nasal: Normal Mouth/Lips: Normal Mucous membranes: Normal Neck: Normal, Supple. No: Lymphadenopathy - Respiratory Respiratory status: No respiratory distress Chest status: Nontender Breath sounds: Normal. No: Rales, Rhonchi, Stridor, Wheezing Chest palpation: Normal - Cardiovascular Rhythm: Regular Heart sounds: S1 appreciated, S2 appreciated Murmur: No - Abdominal Inspection: Normal Distension: No distension Bowel sounds: Normal Tenderness: Nontender Organomegaly: No organomegaly - Back Back: Tender - Lower lumbar paraspinal tenderness, Vertebra tenderness - Lower lumbar tenderness. No: Deformity/step-off, CVA tenderness - Extremities General upper extremity: Normal inspection, Normal strength General lower extremity: Normal inspection, Normal strength - Neurological Neuro grossly intact: Yes Cognition: Normal Rice Coma Scale Eye Opening: Spontaneous Rice Coma Scale Verbal: Oriented Rice Coma Scale Motor: Obeys Commands Rice Coma Scale Total: 15 - Psychological Associated symptoms: Normal affect, Normal mood - Skin Skin Temperature: Warm Skin Moisture: Dry Skin Color: Normal <SUNIL BALDWIN - Last Filed: 12/29/19 20:18> - Vital signs Vitals: Temp 99.0 F 12/29/19 16:15 - Neurological Notes: No saddle anesthesia, no foot drop, positive straight leg test on the left (SUNIL BALDWIN) Course - Laboratory Result Diagrams: 12/29/19 17:20 12/29/19 17:20 <SUNIL BALDWIN - Last Filed: 12/29/19 20:18> - Laboratory Result Diagrams: 12/29/19 17:20 12/29/19 17:20 <ROBERT MENDEZ - Last Filed: 12/29/19 23:13> - Re-evaluation Re-evalutation: 12/29/19 17:[address] Alex regarding patient presentation diagnostic evaluation. Agrees with plan for evaluation for possible spinal epidural abscess at this time given history of fever, low back pain and IV drug abuse. 12/29/19 20:18 Report and handoff given to ALFREDITO Chavez (SUNIL BALDWIN) 12/29/19 23:09 I assumed care from Sunil Baldwin the dayshift provider that took care of patient. Patient has extensive story that he had a fall off a roof several weeks ago over a month ago had an MRI done and showed no findings he came in with a fever today of 101.2 and she was concerned possible abscess so she MRI him again which returned no acute findings. She looking with me and that the only area she had not checked on his possible fever presentation was his urine so she had them give a urine and it had gone up just as she was getting ready to go home. She inform you that it was negative patient could be discharged home and because he had possible contact with a relative with COVID he is can go home and self quarantine until he gets the results of the COVID test that was performed on him here julio césar. I went in to recheck on patient and he is doing well he is ready to go home and he wanted me to think Sunil for caring enough to do a good work-up on him. (ROBERT MENDEZ) - Vital Signs Vital signs: Temp Pulse Resp BP Pulse Ox 99.0 F 109 H 16 139/70 H 96 12/29/19 16:28 12/29/19 16:28 12/29/19 16:28 12/29/19 16:28 12/29/19 16:28 - Laboratory Laboratory results interpreted by me: 12/29/19 12/29/19 12/29/19 17:20 17:20 20:03 Lymph % (Auto) 9.1 L ESR 57 H Sodium 132.1 L Chloride 95 L Glucose 113 H ALT 73 H Urine Ketones TRACE H Urine Blood SMALL H Urine Urobilinogen 2.0 H Discharge <SUNIL BALDWIN - Last Filed: 12/29/19 20:18> <ROBERT MENDEZ - Last Filed: 12/29/19 23:13> - Discharge Clinical Impression: Fever Qualifiers: Fever type: unspecified Qualified Code(s): R50.9 - Fever, unspecified Low back pain Qualifiers: Chronicity: acute Back pain laterality: bilateral Sciatica presence: unspecified whether sciatica present Qualified Code(s): M54.5 - Low back pain Condition: Stable Disposition: HOME, SELF-CARE Instructions: Acetaminophen, Fever ([facility]), Ice Packs ([facility]), Low Back Pain ([facility]) Additional Instructions: Fever Fever is the body's reaction to infection. Fever can also occur with illnesses that create fever-producing substances in the body. By itself, fever is not harmful. It helps the body fight invading germs. We are more concerned with: (1) What's causing the fever? (2) How can we keep you more comfortable until the fever goes away? Early in an illness, symptoms are often so vague that a diagnosis can't be made. If the doctor hasn't identified a clear cause for your fever, you will pr obably develop new symptoms within the next two days. Contact the doctor if you develop severe worsening headache, rash, chest pain, cough with yellow or green sputum, difficulty breathing, abdominal pain, or other new symptoms. There is no reason to treat a fever if you're comfortable. If the fever is causing aches, headache, and fatigue, you can treat it with ibuprofen (Advil, Nuprin, etc) or acetaminophen (Tylenol). Follow the directions on the bottle. Get plenty of liquids (three quarts per day). Rest. Physical work or sports will raise the temperature higher and make you feel much worse. Dress lightly. If you're chilling, this means the temperature is trying to go higher. Take ibuprofen or acetaminophen. When you feel sweaty and "feverish" the temperature is coming down. If the fever doesn't go away within two days or if you become more ill, call the doctor or return at once for re-examination.Return immediately for any new or worsening symptoms Take Tylenol alternate with Motrin every 4 hours keep her fever down. Push fluids. As we discussed self isolate until such time as you get the results of the test that we performed on your here. This usually takes around 48 hours. As always you can return to ER for reevaluation if you have any concerns or problems or if the fever does not go away on the Tylenol Motrin. Followup with your primary care provider, call tomorrow to make a followup appointment Forms: Elevated Blood Pressure, Smoking Cessation Education Referrals: [facility] [Provider Group] - Follow up as needed
[2019-12-29] MEDS ORDERED: CEFTRIAXONE 1 GM/D5W RTU 1 GM/50 ML RTUPB IV ONE (17:17)
[2019-12-29] MEDS ORDERED: VANCOMYCIN HCL INJ 1000 MG VIAL IV ONE (17:18)
[2019-12-29 17:43] LABS: ABSOLUTE LYMPHOCYTES (AUTO) 0.6 10^3/uL (0.5-4.7); ABSOLUTE MONOCYTES (AUTO) 0.8 10^3/uL (0.1-1.4); ABSOLUTE NEUT (AUTO) 5.1 10^3/uL (1.7-8.2); BASOPHILS % (AUTO) 0.3 % (0-2); EOSINOPHILS % (AUTO) 0.2 % (0-6); HEMATOCRIT 40.3 % (37.9-51.0); HEMOGLOBIN 14.3 g/dL (13.5-17.0); LYMPHOCYTES % (AUTO) 9.1 % (13-45); MEAN CORPUSCULAR HEMOGLOBIN 30.8 pg (27.0-33.4); MEAN CORPUSCULAR HGB CONC 35.5 g/dL (32.0-36.0); MEAN CORPUSCULAR VOLUME 87 fl (80-97); MONOCYTES % (AUTO) 12.9 % (3-13); PLATELET COUNT 178 10^3/uL (150-450); RED BLOOD COUNT 4.64 10^6/uL (4.35-5.55); RED CELL DISTRIBUTION WIDTH 13.2 % (11.5-14.0); SEGMENTED NEUTROPHILS % (AUTO) 77.5 % (42-78); TOTAL CELLS COUNTED % (AUTO) 100 %; WHITE BLOOD COUNT 6.6 10^3/uL (4.0-10.5)
[2019-12-29 18:20] LABS: ERYTHROCYTE SEDIMENTATION RATE 57 mm/hr (0-15)
[2019-12-29 18:25] LABS: ALBUMIN 3.8 g/dL (3.5-5.0); ALKALINE PHOSPHATASE 65 U/L (38-126); ANION GAP 11 (5-19); ASPARTATE AMINO TRANSFERASE 57 U/L (17-59); BILIRUBIN,TOTAL 1.2 mg/dL (0.2-1.3); BLOOD UREA NITROGEN 12 mg/dL (7-20); CALCIUM 9.2 mg/dL (8.4-10.2); CARBON DIOXIDE 26 mmol/L (22-30); CHLORIDE 95 mmol/L (98-107); GLUCOSE 113 mg/dL (75-110); POTASSIUM 3.8 mmol/L (3.6-5.0)
--- NOTE | 2019-12-29 19:51 | RADIOLOGY REPORT (SQ) ---
EXAM DESCRIPTION: MRI LUMBAR SPINE WITHOUT IMAGES COMPLETED DATE/TIME: 12/29/2019 6:26 pm REASON FOR STUDY: fever,IVDA, low back pain, eval for abscess. Pain and stiffness with flexion and extension. Decreased range of motion. Symptoms for 4-5 days. IV drug abuser. Concern for after ab scess. COMPARISON: None. TECHNIQUE: Sagittal and Axial imaging includes T1, T2, STIR and gradient echo sequences. Coronal T2/ HASTE imaging. LIMITATIONS: None. FINDINGS: VISUALIZED UPPER ABDOMEN: Limited evaluation. No acute or suspicious findings suggested. SEGMENTATION: No transitional anatomy. The lowest well-developed disc space is labeled L5-S1. ALIGNMENT: Anatomic. VERTEBRAE: Intact. BONE MARROW: Normal. No marrow replacement or reactive changes. DISC SIGNAL: There is mild loss of intervertebral disc height and signal in the lumbar spine. No abrahan dence of discitis. POSTERIOR ELEMENTS: Generally intact. No pars defect evident. HARDWARE: None in the spine. CORD AND CONUS: Normal in size and signal intensity. Conus at the appropriate level. SOFT TISSUES: No aortic aneurysm seen. No bulky retroperitoneal adenopathy or mass. No paraspinal mas s or fluid. L1-L2: No significant spinal stenosis or exit foraminal stenosis. L2-L3: No significant spinal stenosis or exit foraminal stenosis. L3-L4: No significant spinal stenosis or exit foraminal stenosis. L4-L5: Small broad-based posterior disc bulge. No significant spinal canal stenosis. Bilateral face t arthropathy and disc material contribute to mild bilateral neural foraminal stenosis. L5-S1: Small broad-based posterior disc bulge. No significant spinal canal stenosis. Bilateral face t arthropathy and disc material contribute to moderate bilateral neural foraminal stenosis. LOWER THORACIC: Incompletely imaged. No stenosis seen. SACRUM: Visualized upper sacrum intact. OTHER: No other significant findings. IMPRESSION: 1. No evidence of discitis/osteomyelitis. 2. Mild degenerative disc disease predominantly at L4-S1 levels. No significant spinal canal stenosi s. TECHNICAL DOCUMENTATION: JOB ID: [id number] [employer]- All Rights Reserved Reading location - IP/workstation name: [email or web address]
[2019-12-29 20:26] LABS: APPEARANCE,URINE CLEAR; BILIRUBIN,URINE NEGATIVE (NEGATIVE); COLOR,URINE YELLOW; GLUCOSE, URINE NEGATIVE (NEGATIVE); KETONES,URINE TRACE mg/dL (NEGATIVE); LEUKOCYTE ESTERASE,URINE NEGATIVE (NEGATIVE); NITRITE,URINE NEGATIVE (NEGATIVE); PROTEIN,URINE NEGATIVE (NEGATIVE); URINE SPECIFIC GRAVITY 1.011
[2019-12-29 20:37] LABS: URINE AMPHETAMINES SCREEN NEGATIVE; URINE BARBITURATES SCREEN NEGATIVE; URINE BENZODIAZEPINES SCREEN NEGATIVE; URINE COCAINE SCREEN NEGATIVE; URINE MARIJUANA (THC) SCREEN NEGATIVE; URINE METHADONE SCREEN NEGATIVE; URINE PHENCYCLIDINE SCREEN NEGATIVE
[2019-12-29 23:54] VITALS: BP 121/96
== END 2019-12-29 23:39 | disposition home or self-care (01) ==
LOC: ER 16:13
DX: M54.5 Low back pain (principal); R50.9 Fever, unspecified; Z20.828 Contact with and (suspected) exposure to other viral communicable diseases; Z86.19 Personal history of other infectious and parasitic diseases
CPT/HCPCS: 99284; 96365; 96366; 96367; 36415; 87040; 85025; 85652; 87635; 87077; 80053; 81001; 87186; 80307; 87150 ×26; 72148; J7030; J3370; J0696; C9803

== ENCOUNTER 2020-01-05 21:20 | Inpatient (IN) | payer SELFPAY ==
[2020-01-05] MEDS ORDERED: RINGERS LACTATED IV ONE (22:31)
[2020-01-05] MEDS ORDERED: PIPERACILLIN/TAZOBACTAM 4.5 GM VIAL IV ONE (22:31)
--- NOTE | 2020-01-05 22:35 | ER Document Report ---
ED Medical Screen (RME) - General Chief Complaint: Abnormal Lab Results Stated Complaint: ABNORMAL LABS Time Seen by Provider: 01/05/20 22:27 Notes: HPI: 24-year-old male presenting to the emergency department called back for recheck after he had a positive blood culture from a visit to the emergency department last week. Patient presented for low back and leg pain. Patient states he continues with lower abdominal pain. Has had nausea no vomiting. No definite fevers. Continues with a low back pain. Patient does have history of IV drug abuse but states last use was over a year ago PHYSICAL EXAMINATION: Patient appears pale and diaphoretic, heart rate is noted to be 140. He has tenderness across the abdomen generally but more focal in the bilateral lower quadrants I have greeted and performed a rapid initial assessment of this patient. A comprehensive ED assessment and evaluation of the patient, analysis of test results and completion of medical decision making process will be conducted by an additional ED providers. TRAVEL OUTSIDE OF THE [place] IN LAST 30 DAYS: No - Related Data Allergies/Adverse Reactions: No Known Allergies Allergy (Unverified 01/29/18 00:21) Past Medical History - Social History Chew tobacco use (# tins/day): No Frequency of alcohol use: None Drug Abuse: None Renal/ Medical History: Denies: Hx Peritoneal Dialysis GI Medical History: Reports: Hx Hepatitis - C Psychiatric Medical History: Reports: Hx Depression Infectious Medical History: Reports: Hx Hepatitis - C - Immunizations Immunizations up to date: Yes Physical Exam - Vital signs Vitals: Temp Pulse Resp BP Pulse Ox 98.1 F 140 H 18 102/83 99 01/05/20 21:40 01/05/20 21:40 01/05/20 21:40 01/05/20 21:40 01/05/20 21:40 Course - Vital Signs Vital signs: Temp Pulse Resp BP Pulse Ox 98.1 F 140 H 18 102/83 99 01/05/20 22:32 01/05/20 21:40 01/05/20 21:40 01/05/20 21:40 01/05/20 21:40
[2020-01-05 23:42] LABS: ABSOLUTE LYMPHOCYTES (AUTO) 1.3 10^3/uL (0.5-4.7); ABSOLUTE MONOCYTES (AUTO) 1.1 10^3/uL (0.1-1.4); ABSOLUTE NEUT (AUTO) 10.9 10^3/uL (1.7-8.2); BASOPHILS % (AUTO) 0.2 % (0-2); EOSINOPHILS % (AUTO) 0.1 % (0-6); HEMATOCRIT 43.7 % (37.9-51.0); LYMPHOCYTES % (AUTO) 9.6 % (13-45); MEAN CORPUSCULAR HEMOGLOBIN 30.2 pg (27.0-33.4); MEAN CORPUSCULAR HGB CONC 34.3 g/dL (32.0-36.0); MEAN CORPUSCULAR VOLUME 88 fl (80-97); MONOCYTES % (AUTO) 8.6 % (3-13); PLATELET COUNT 453 10^3/uL (150-450); RED BLOOD COUNT 4.95 10^6/uL (4.35-5.55); RED CELL DISTRIBUTION WIDTH 13.3 % (11.5-14.0); SEGMENTED NEUTROPHILS % (AUTO) 81.5 % (42-78); TOTAL CELLS COUNTED % (AUTO) 100 %; WHITE BLOOD COUNT 13.3 10^3/uL (4.0-10.5)
[2020-01-05 23:49] LABS: INTERNATIONAL RATION (INR) 1.13; PROTHROMBIN TIME 14.6 SEC (11.4-15.4)
[2020-01-05] MEDS ORDERED: KETOROLAC TROMETHAMINE INJ/PF 30 MG/1 ML SDV IV ONE (23:54)
[2020-01-06 00:27] LABS: ALBUMIN 4.5 g/dL (3.5-5.0); ALKALINE PHOSPHATASE 89 U/L (38-126); ANION GAP 11 (5-19); ASPARTATE AMINO TRANSFERASE 39 U/L (17-59); BILIRUBIN,DIRECT 0.1 mg/dL (0.0-0.4); BILIRUBIN,TOTAL 1.1 mg/dL (0.2-1.3); BLOOD UREA NITROGEN 11 mg/dL (7-20); CALCIUM 10.3 mg/dL (8.4-10.2); CARBON DIOXIDE 29 mmol/L (22-30); CHLORIDE 96 mmol/L (98-107); GLUCOSE 110 mg/dL (75-110); POTASSIUM 4.4 mmol/L (3.6-5.0); TOTAL PROTEIN 8.3 g/dL (6.3-8.2)
--- NOTE | 2020-01-06 00:54 | RADIOLOGY REPORT (SQ) ---
EXAM DESCRIPTION: XR CHEST 1 VIEW COMPLETED DATE/TME: 01/05/2020 23:28 CLINICAL HISTORY: 24 years, Male, tachycardia COMPARISON: None. NUMBER OF VIEWS: One TECHNIQUE: AP view the chest LIMITATIONS: None. FINDINGS: The lungs are clear. The heart is normal in size. There is no pneumothorax or pleural effusion. There is no acute fracture. IMPRESSION: No acute cardiopulmonary abnormality copyright 2010 [employer]- All Rights Reserved
--- NOTE | 2020-01-06 00:56 | RADIOLOGY REPORT (SQ) ---
EXAM DESCRIPTION: CT ABDOMEN PELVIS WITH IV CONTRAST COMPLETED DATE/TME: 01/05/2020 22:33 CLINICAL HISTORY: 24 years, Male, lower abd pain COMPARISON: None. TECHNIQUE: Axial CT images of the pelvis were obtained after the administration of IV contrast. Sagittal and coronal reformats were performed. A 1027 Images stored on PACS. All CT scanners at this facility use dose modulation, iterative reconstruction, and/or weight based dosing when appropriate to reduce radiation dose to as low as reasonably achievable (ALARA). [facility]: Dose Right [facility]: CareDose [facility]: Dose Right [facility]: Teradose 4D [facility]: Smart [employer] LIMITATIONS: None. FINDINGS: Lung bases are clear. The liver, gallbladder, pancreas, spleen, and adrenal glands appear normal. Both kidneys enhance normally. No evidence of hydronephrosis bilaterally. There is no intraperitoneal free air or fluid. There is no lymphadenopathy. The abdominal aorta is normal in caliber. The stomach and small bowel appear unremarkable. The appendix is normal. The colon appears unremarkable. The urinary bladder and prostate gland are normal. There are no lytic or blastic bone lesions. There is minimal grade 1 anterolisthesis of L5 over S1. IMPRESSION: No acute findings. Normal appendix. TECHNICAL DOCUMENTATION: Quality ID # 436: Final reports with documentation of one or more dose reduction techniques (e.g., Automated exposure control, adjustment of the mA and/or kV according to patient size, use of iterative reconstruction technique) copyright 2011 [employer]- All Rights Reserved
--- NOTE | 2020-01-06 01:01 | ER Document Report ---
Entered by IVELISSE MALONE SCRIBE 01/05/20 2314 Acting as scribe for:RENATE SALAZAR IV, MD ED General - General Chief Complaint: Abnormal Lab Results Stated Complaint: ABNORMAL LABS Time Seen by Provider: 01/05/20 22:27 Mode of Arrival: Ambulatory Information source: Patient Notes: This 24 year old male patient presents to the ED today with complaints of abnormal lab results. Patient states that he was called by a RN from [facility] and was instructed to come to the ED for positive culture results. The blood culture results reveal the patient is positive for staphylococcus aureus in his blood. He also reports continued pain to his lower abdomen, lower back, and bilateral hips. He also notes urinary frequency. TRAVEL OUTSIDE OF THE [place] IN LAST 30 DAYS: No - Related Data Allergies/Adverse Reactions: No Known Allergies Allergy (Unverified 01/29/18 00:21) Past Medical History - General Information source: Patient - Social History Smoking Status: Never Smoker Cigarette use (# per day): No Chew tobacco use (# tins/day): No Smoking Education Provided: No Frequency of alcohol use: None Drug Abuse: None Family History: Reviewed & Not Pertinent Patient has suicidal ideation: No Patient has homicidal ideation: No GI Medical History: Reports: Hx Hepatitis - C Psychiatric Medical History: Reports: Hx Depression Infectious Medical History: Reports: Hx Hepatitis - C - Immunizations Immunizations up to date: Yes Review of Systems - Review of Systems Constitutional: No symptoms reported EENT: No symptoms reported Cardiovascular: No symptoms reported Respiratory: No symptoms reported Gastrointestinal: See HPI, Abdominal pain Genitourinary: See HPI, Frequency Male Genitourinary: No symptoms reported Musculoskeletal: See HPI, Back pain, Joint pain - bilateral hips Skin: No symptoms reported Hematologic/Lymphatic: See HPI, Other - Positive blood cultures Neurological/Psychological: No symptoms reported -: Yes All other systems reviewed and negative Physical Exam - Vital signs Vitals: Temp Pulse Resp BP Pulse Ox 98.1 F 140 H 18 102/83 99 01/05/20 21:40 01/05/20 21:40 01/05/20 21:40 01/05/20 21:40 01/05/20 21:40 - General General appearance: Alert In distress: None - HEENT Head: Normocephalic, Atraumatic Eyes: Other - Disconjugate gaze Cornea: Normal Pupils: PERRL - Respiratory Respiratory status: No respiratory distress Chest status: Nontender Breath sounds: Normal Chest palpation: Normal - Cardiovascular Rhythm: Regular, Tachycardia Heart sounds: Normal auscultation Murmur: No Friction rub: No Gallop: None auscultated - Abdominal Inspection: Normal Distension: No distension Bowel sounds: Normal Tenderness: Nontender - Abdomen soft Organomegaly: No organomegaly - Back Back: CVA tenderness - Bilateral CVA tenderness to percussion - Extremities General upper extremity: Normal inspection General lower extremity: Normal inspection - Neurological Neuro grossly intact: Yes Orientation: AAOx4 - Psychological Associated symptoms: Normal affect, Normal mood - Skin Skin Temperature: Warm Skin Moisture: Dry Skin Color: Normal Course - Re-evaluation Re-evalutation: 01/06/20 03:27 Results of ED MSE discussed with patient. Recommendation for admission discussed with patient. Patient agreed to admission. - Vital Signs Vital signs: Temp Pulse Resp BP Pulse Ox 98.1 F 140 H 14 140/80 H 98 01/05/20 22:32 01/05/20 21:40 01/06/20 03:00 01/05/20 23:24 01/06/20 03:00 - Laboratory Result Diagrams: 01/05/20 23:04 01/05/20 23:04 Laboratory results interpreted by me: 01/05/20 01/05/20 01/06/20 23:04 23:04 02:01 WBC 13.3 H Plt Count 453 H Lymph % (Auto) 9.6 L Absolute Neuts (auto) 10.9 H Seg Neutrophils % 81.5 H Sodium 135.9 L Chloride 96 L Lactic Acid 0.6 L Calcium 10.3 H ALT 68 H Total Protein 8.3 H - Diagnostic Test Radiology reviewed: Reports reviewed - EKG Interpretation by Me Additional EKG results interpreted by me: 01/05/20 23:28 EKG obtained on 01/05/2020 at 2314 hrs. was interpreted by this MD. Findings sinus tachycardia, rate 110, normal axis, P waves proceed QRS complexes, QRS complexes appear narrow, there are no obvious patterns of ST segment elevation or depression present to suggest acute myocardial ischemia or infarction. Impression: Sinus tachycardia with nonspecific ST segments. - Consults Dr. Goins Time consulted: 03:28 - Dr. Goins agreed to admit patient Reason for consultation: 01/06/20 03:28 Positive blood cultures Critical Care Note - Critical Care Note Total time excluding time spent on procedures (mins): 120 - management of bacteremia, tachycardia Discharge - Discharge Clinical Impression: Bacteremia, History of intravenous drug abuse Condition: Good Disposition: ADMITTED INPATIENT Admitting Provider: Buster (Hospitalist) Unit Admitted: Telemetry I personally performed the services described in the documentation, reviewed and edited the documentation which was dictated to the scribe in my presence, and it accurately records my words and actions.
[2020-01-06 02:20] LABS: APPEARANCE,URINE CLEAR; BILIRUBIN,URINE NEGATIVE (NEGATIVE); COLOR,URINE YELLOW; GLUCOSE, URINE NEGATIVE (NEGATIVE); KETONES,URINE NEGATIVE (NEGATIVE); PROTEIN,URINE NEGATIVE (NEGATIVE); URINE SPECIFIC GRAVITY 1.048; UROBILINOGEN,URINE NEGATIVE mg/dL (<2.0)
[2020-01-06 02:39] LABS: URINE AMPHETAMINES SCREEN NEGATIVE; URINE BARBITURATES SCREEN NEGATIVE; URINE BENZODIAZEPINES SCREEN NEGATIVE; URINE COCAINE SCREEN NEGATIVE; URINE MARIJUANA (THC) SCREEN NEGATIVE; URINE METHADONE SCREEN NEGATIVE; URINE PHENCYCLIDINE SCREEN NEGATIVE
[2020-01-06] MEDS ORDERED: MAG HYDROX/AL HYDROX/SIMETH SUSP 30 ML UDCUP PO PRN (03:30)
[2020-01-06] MEDS ORDERED: IPRATROPIUM/ALBUTEROL 0.5-2.5 MG/3 ML AMPUL NEB PRN (03:30)
[2020-01-06] MEDS ORDERED: NAFCILLIN SODIUM INJ 2 GM VIAL IV PRN (03:33)
[2020-01-06] MEDS ORDERED: FENTANYL CITRATE INJ/PF 100 MCG/2 ML AMPUL IV PRN (03:33)
[2020-01-06] MEDS ORDERED: NAFCILLIN SODIUM 2 GM in DEXTROSE 5%-WATER 100 ML IV ONE (03:45)
[2020-01-06] MEDS ORDERED: NAFCILLIN SODIUM INJ 2 GM VIAL ONE (04:13)
--- NOTE | 2020-01-06 05:28 | PDOC H&P ---
History of Present Illness Admission Date/PCP: 01/06/20 03:36 Patient complains of: Abnormal labs History of Present Illness: CHRIS LONDON is a 24 year old male with a past medical history of IV heroin drug abuse. He presents 7 days after an ER visit work-up for abdominal and back pain. He was summons to return to the emergency department for positive blood cultures with non-MRSA staph aureus. He is found to have hypotension, tachycardia, subjective fever, leukocytosis but an otherwise unremarkable work- up. He received Zosyn and referred to the hospitalist for admission. He denies previous history of endocarditis. Past Medical History GI Medical History: Reports: Hepatitis - C Psychiatric Medical History: Reports: Depression, Substance Abuse Past Surgical History Past Surgical History: Reports: None Social History Information Source: Patient, [facility] Records Smoking Status: Never Smoker Electronic Cigarette use?: No Frequency of Alcohol Use: Social Hx Recreational Drug Use: Yes Drugs: Heroin, Marijuana Hx Prescription Drug Abuse: Yes - Advance Directive Resuscitation Status: Full Code Family History Family History: Hypertension Parental Family History Reviewed: Yes Children Family History Reviewed: Yes Sibling(s) Family History Reviewed.: Yes Medication/Allergy Home Medications: Cephalexin [Cephalexin 500 MG Tablet] 1 tab PO QID #40 tablet 07/29/18 Sulfamethoxazole/Trimethoprim [Bactrim Ds Tablet] 1 tab PO BID #28 tablet 07/29/18 Hydrocodone/Acetaminophen [[place] 5-325 mg Tablet] 1 tab PO Q6 PRN #15 tablet 11/19/19 Naproxen [Naprosyn 250 Nmg Tablet] 1 tab PO BID #14 tablet 11/19/19 Allergies/Adverse Reactions: No Known Allergies Allergy (Unverified 01/29/18 00:21) Review of Systems Constitutional: ABSENT: chills, fever(s), headache(s), weight gain, weight loss Eyes: ABSENT: visual disturbances Ears: ABSENT: hearing changes Cardiovascular: ABSENT: chest pain, dyspnea on exertion, edema, orthropnea, palpitations Respiratory: ABSENT: cough, hemoptysis Gastrointestinal: ABSENT: abdominal pain, constipation, diarrhea, hematemesis, hematochezia, nausea, vomiting Genitourinary: ABSENT: dysuria, hematuria Musculoskeletal: ABSENT: joint swelling Integumentary: ABSENT: rash, wounds Neurological: ABSENT: abnormal gait, abnormal speech, confusion, dizziness, focal weakness, syncope Psychiatric: ABSENT: anxiety, depression, homidical ideation, suicidal ideation Endocrine: ABSENT: cold intolerance, heat intolerance, polydipsia, polyuria Hematologic/Lymphatic: ABSENT: easy bleeding, easy bruising Physical Exam Vital Signs: Temp Pulse Resp BP Pulse Ox 98.1 F 140 H 16 140/80 H 98 01/05/20 22:32 01/05/20 21:40 01/06/20 04:00 01/05/20 23:24 01/06/20 04:00 Intake & Output 01/04/20 01/05/20 01/06/20 11:59 11:59 11:59 Intake Total 2890 Balance 2890 Weight 96.2 kg General appearance: PRESENT: cooperative, mild distress, thin, well-developed, well-nourished Head exam: PRESENT: atraumatic, normocephalic Eye exam: PRESENT: conjunctiva pink, EOMI, PERRLA. ABSENT: scleral icterus Ear exam: PRESENT: normal external ear exam Neck exam: ABSENT: carotid bruit, JVD, lymphadenopathy, thyromegaly Respiratory exam: PRESENT: clear to auscultation brandon. ABSENT: rales, rhonchi, wheezes Cardiovascular exam: PRESENT: +S1, +S2, tachycardia. ABSENT: systolic murmur Pulses: PRESENT: normal dorsalis pedis pul Vascular exam: PRESENT: normal capillary refill GI/Abdominal exam: PRESENT: normal bowel sounds, soft. ABSENT: distended, guarding, mass, organolmegaly, rebound, tenderness Rectal exam: PRESENT: deferred Extremities exam: PRESENT: full ROM. ABSENT: calf tenderness, clubbing, pedal edema Neurological exam: PRESENT: alert, awake, oriented to person, oriented to place, oriented to time, oriented to situation, CN II-XII grossly intact. ABSENT: motor sensory deficit Psychiatric exam: PRESENT: appropriate affect, normal mood. ABSENT: homicidal ideation, suicidal ideation Skin exam: PRESENT: dry, intact, warm. ABSENT: cyanosis, rash Results Laboratory Results: 01/05/20 23:04 01/05/20 23:04 01/05/20 01/05/20 01/05/20 23:04 23:04 23:04 WBC 13.3 H RBC 4.95 Hgb 15.0 Hct 43.7 MCV 88 MCH 30.2 MCHC 34.3 RDW 13.3 Plt Count 453 H Seg Neutrophils % 81.5 H Sodium 135.9 L Potassium 4.4 Chloride 96 L Carbon Dioxide 29 Anion Gap 11 BUN 11 Creatinine 0.82 Est GFR ( Amer) > 60 Glucose 110 Lactic Acid 1.2 Calcium 10.3 H Total Bilirubin 1.1 AST 39 Alkaline Phosphatase 89 Total Protein 8.3 H Albumin 4.5 Urine Color Urine Appearance Urine pH Ur Specific [place] Urine Protein Urine Glucose (UA) Urine Ketones Urine Blood Urine RBC (Auto) 01/06/20 01/06/20 01/06/20 02:01 02:01 04:42 WBC RBC Hgb Hct MCV MCH MCHC RDW Plt Count Seg Neutrophils % Sodium Potassium Chloride Carbon Dioxide Anion Gap BUN Creatinine Est GFR ( Amer) Glucose Lactic Acid 0.6 L 0.5 L Calcium Total Bilirubin AST Alkaline Phosphatase Total Protein Albumin Urine Color YELLOW Urine Appearance CLEAR Urine pH 6.0 Ur Specific [place]aly 1.048 Urine Protein NEGATIVE Urine Glucose (UA) NEGATIVE Urine Ketones NEGATIVE Urine Blood NEGATIVE Urine RBC (Auto) 0 Impressions: Abdomen/Pelvis CT 01/05/20 22:33 IMPRESSION: No acute findings. Normal appendix. TECHNICAL DOCUMENTATION: Quality ID # 436: Final reports with documentation of one or more dose reduction techniques (e.g., Automated exposure control, adjustment of the mA and/or kV according to patient size, use of iterative reconstruction technique) copyright 2011 [employer]- All Rights Reserved Chest X-Ray 01/05/20 23:28 IMPRESSION: No acute cardiopulmonary abnormality copyright 2010 [employer]- All Rights Reserved Assessment and Plan - Diagnosis (1) Bacteremia Is this a current diagnosis for this admission?: Yes Plan: Non-MRSA staph aureus bacteremia, concern for endocarditis given IV drug abuse, IV nafcillin, follow-up 2D echo and blood culture (2) History of intravenous drug abuse Is this a current diagnosis for this admission?: Yes Plan: Supportive care, follow-up hepatitis and HIV screen (3) Endocarditis Is this a current diagnosis for this admission?: Yes Plan: Suggested by #1, follow-up 2D echo, continue empiric nafcillin. - Time Time Spent with patient: 25-34 minutes - Inpatient Certification Medical Necessity: Need Close Monitoring Due to Risk of Patient Decompensation
[2020-01-06] MEDS: HEPARIN SOD (PORCINE) 5,000 UNIT/ML 1 ML VIAL SUBCUT SCH ×3 (06:26→21:32)
[2020-01-06] MEDS: NAFCILLIN SODIUM 2 GM in DEXTROSE 5%-WATER 100 ML IV SCH ×5 (08:16→23:17)
[2020-01-06] MEDS: NORMAL SALINE 1000 ML 1,000 ML IV PRN (09:15)
[2020-01-06] MEDS: DOCUSATE SODIUM 100 MG CAPSULE PO SCH ×2 (09:33→17:05)
[2020-01-06] MEDS: KETOROLAC TROMETHAMINE INJ/PF 30 MG/1 ML SDV IV PRN ×3 (10:47→23:17)
--- NOTE | 2020-01-06 11:18 | EKG REPORT ---
SEVERITY:- OTHERWISE NORMAL ECG - SINUS TACHYCARDIA : Confirmed by: Jaden Alfaro 06-Jan-2020 11:17:34
--- NOTE | 2020-01-06 16:20 | PDOC PROGRESS REPORT ---
Subjective Progress Note for:: 01/06/20 Subjective:: CORBIN LONDON is a 24 year old male with a past medical history of IV heroin drug abuse who was admitted for MSSA bacteremia. Patient was seen in morning rounds while still in the ED. He reports continued left lower back pain that is constant; wax and wains, and is worsened by movement. Occasionally the pain radiates to bilateral hips. Reports pain has been present for several weeks. He denies recent fevers, chills, chest pain, palpitations, dyspnea, abd pain, nausea and vomiting. Confirms last IVDU to be approximately 6 months ago. He has no other questions or concerns at this time. No concerns per nursing. Reason For Visit: IV DRUG ABUSE,STAPH AUREUS BACTEREMIA Physical Exam Vital Signs: Temp Pulse Resp BP Pulse Ox 97.7 F 86 20 119/65 100 01/06/20 14:22 01/06/20 14:23 01/06/20 14:22 01/06/20 14:22 01/06/20 14:22 Intake & Output 01/05/20 01/06/20 01/07/20 06:59 06:59 06:59 Intake Total 2890 1000 Balance 2890 1000 Weight 96.2 kg 218.9 kg General appearance: PRESENT: no acute distress, cooperative, well-developed, well-nourished Head exam: PRESENT: atraumatic, normocephalic Eye exam: PRESENT: conjunctiva pink, EOMI, PERRLA. ABSENT: scleral icterus Mouth exam: PRESENT: moist, tongue midline Teeth exam: PRESENT: dental caries, poor dentation Respiratory exam: PRESENT: clear to auscultation brandon, symmetrical, unlabored. ABSENT: rales, rhonchi, wheezes Cardiovascular exam: PRESENT: RRR, +S1, +S2. ABSENT: diastolic murmur, rubs, systolic murmur Pulses: PRESENT: normal dorsalis pedis pul Vascular exam: PRESENT: normal capillary refill GI/Abdominal exam: PRESENT: normal bowel sounds, soft. ABSENT: distended, guarding, mass, organolmegaly, rebound, tenderness Rectal exam: PRESENT: deferred Extremities exam: PRESENT: full ROM. ABSENT: calf tenderness, clubbing, pedal edema Musculoskeletal exam: PRESENT: ambulatory Neurological exam: PRESENT: alert, awake, oriented to person, oriented to place, oriented to time, oriented to situation, CN II-XII grossly intact. ABSENT: motor sensory deficit Psychiatric exam: PRESENT: appropriate affect, normal mood. ABSENT: homicidal ideation, suicidal ideation Skin exam: PRESENT: dry, intact, warm. ABSENT: cyanosis, rash Results Laboratory Results: 01/05/20 23:04 01/05/20 23:04 01/05/20 01/05/20 01/05/20 23:04 23:04 23:04 WBC 13.3 H RBC 4.95 Hgb 15.0 Hct 43.7 MCV 88 MCH 30.2 MCHC 34.3 RDW 13.3 Plt Count 453 H Seg Neutrophils % 81.5 H Sodium 135.9 L Potassium 4.4 Chloride 96 L Carbon Dioxide 29 Anion Gap 11 BUN 11 Creatinine 0.82 Est GFR ( Amer) > 60 Glucose 110 Lactic Acid 1.2 Calcium 10.3 H Total Bilirubin 1.1 AST 39 Alkaline Phosphatase 89 Total Protein 8.3 H Albumin 4.5 Urine Color Urine Appearance Urine pH Ur Specific Parker Urine Protein Urine Glucose (UA) Urine Ketones Urine Blood Urine RBC (Auto) 01/06/20 01/06/20 01/06/20 02:01 02:01 04:42 WBC RBC Hgb Hct MCV MCH MCHC RDW Plt Count Seg Neutrophils % Sodium Potassium Chloride Carbon Dioxide Anion Gap BUN Creatinine Est GFR ( Amer) Glucose Lactic Acid 0.6 L 0.5 L Calcium Total Bilirubin AST Alkaline Phosphatase Total Protein Albumin Urine Color YELLOW Urine Appearance CLEAR Urine pH 6.0 Ur Specific Parker 1.048 Urine Protein NEGATIVE Urine Glucose (UA) NEGATIVE Urine Ketones NEGATIVE Urine Blood NEGATIVE Urine RBC (Auto) 0 Impressions: Abdomen/Pelvis CT 01/05/20 22:33 IMPRESSION: No acute findings. Normal appendix. TECHNICAL DOCUMENTATION: Quality ID # 436: Final reports with documentation of one or more dose reduction techniques (e.g., Automated exposure control, adjustment of the mA and/or kV according to patient size, use of iterative reconstruction technique) copyright 2010 [employer]- All Rights Reserved Chest X-Ray 01/05/20 23:28 IMPRESSION: No acute cardiopulmonary abnormality copyright 2010 [employer]- All Rights Reserved Assessment and Plan - Diagnosis (1) Bacteremia Is this a current diagnosis for this admission?: Yes Plan: MSSA bacteremia (Blood cultures 12/29/19) Repeat blood cultures pending. Concern for endocarditis given IV drug abuse PAtient is admitted to the medical floor on telemetry. Continue IV nafcillin Follow-up 2D echo (2) Endocarditis Is this a current diagnosis for this admission?: Yes Plan: Suggested by #1, follow-up 2D echo, continue empiric nafcillin. (3) History of intravenous drug abuse Is this a current diagnosis for this admission?: Yes Plan: Supportive care Monitor for evidence of withdrawal. HIV negative Hepatitis pending Discharge planning consulted (4) Back pain Qualifiers: Back pain location: low back pain Back pain laterality: left Sciatica presence: without sciatica Is this a current diagnosis for this admission?: Yes Plan: MRI (11/19/19 and 12/28/29) show L4-S1 mild DDD No acute/concerning findings. Toradol prn Trial Lidoderm Nonpharmacological interventions - Time Time Spent with patient: 25-34 minutes Medications reviewed and adjusted accordingly: Yes
[2020-01-06] MEDS: ACETAMINOPHEN 325 MG TABLET PO PRN ×2 (16:37→21:34)
[2020-01-07] MEDS: ACETAMINOPHEN 325 MG TABLET PO PRN ×2 (03:38→22:12)
[2020-01-07] MEDS: NAFCILLIN SODIUM 2 GM in DEXTROSE 5%-WATER 100 ML IV SCH ×4 (03:39→15:35)
[2020-01-07] MEDS: HEPARIN SOD (PORCINE) 5,000 UNIT/ML 1 ML VIAL SUBCUT SCH ×3 (05:30→22:08)
[2020-01-07] MEDS: KETOROLAC TROMETHAMINE INJ/PF 30 MG/1 ML SDV IV PRN ×3 (05:30→17:58)
[2020-01-07 06:58] LABS: ABSOLUTE BASOPHILS # (AUTO) 0.1 10^3/uL (0.0-0.2); ABSOLUTE EOSINOPHILS # (AUTO) 0.1 10^3/uL (0.0-0.6); ABSOLUTE LYMPHOCYTES (AUTO) 2.3 10^3/uL (0.5-4.7); ABSOLUTE MONOCYTES (AUTO) 0.9 10^3/uL (0.1-1.4); ABSOLUTE NEUT (AUTO) 5.2 10^3/uL (1.7-8.2); BASOPHILS % (AUTO) 0.6 % (0-2); EOSINOPHILS % (AUTO) 0.7 % (0-6); HEMATOCRIT 38.6 % (37.9-51.0); HEMOGLOBIN 13.3 g/dL (13.5-17.0); LYMPHOCYTES % (AUTO) 26.6 % (13-45); MEAN CORPUSCULAR HEMOGLOBIN 30.5 pg (27.0-33.4); MEAN CORPUSCULAR HGB CONC 34.6 g/dL (32.0-36.0); MEAN CORPUSCULAR VOLUME 88 fl (80-97); MONOCYTES % (AUTO) 11.1 % (3-13); PLATELET COUNT 403 10^3/uL (150-450); RED BLOOD COUNT 4.38 10^6/uL (4.35-5.55); RED CELL DISTRIBUTION WIDTH 13.3 % (11.5-14.0); TOTAL CELLS COUNTED % (AUTO) 100 %; WHITE BLOOD COUNT 8.5 10^3/uL (4.0-10.5)
[2020-01-07 07:26] LABS: ANION GAP 7 (5-19); BLOOD UREA NITROGEN 9 mg/dL (7-20); CALCIUM 9.5 mg/dL (8.4-10.2); CARBON DIOXIDE 29 mmol/L (22-30); CHLORIDE 103 mmol/L (98-107); GLUCOSE 92 mg/dL (75-110); POTASSIUM 4.4 mmol/L (3.6-5.0)
[2020-01-07] MEDS: DOCUSATE SODIUM 100 MG CAPSULE PO SCH ×2 (10:26→17:53)
[2020-01-07] MEDS: LIDOCAINE 5% (700 MG) TRANSDERMAL ADH..PATCH TP SCH (10:26)
[2020-01-07] MEDS: NORMAL SALINE 1000 ML 1,000 ML IV PRN (11:50)
[2020-01-07] MEDS ORDERED: TRAMADOL HCL 50 MG TABLET PO PRN (12:41)
--- NOTE | 2020-01-07 13:43 | PDOC PROGRESS REPORT ---
Subjective Progress Note for:: 01/07/20 Subjective:: CHRIS LONDON is a 24 year old male with a past medical history of IV heroin drug abuse who was admitted for MSSA bacteremia. Patient was seen in morning rounds. He reports continued left lower back pain that kept him up last night, otherwise states he is feeling well. He denies recent fevers, chills, chest pain, palpitations, dyspnea, abd pain, nausea and vomiting. Denies any recent dental abscess or skin wounds. Reports last IVDU to be nearly a year ago (notably, yesterday he stated 6 months ago). He has no other questions or concerns at this time. No concerns per nursing. Reason For Visit: IV DRUG ABUSE,STAPH AUREUS BACTEREMIA Physical Exam Vital Signs: Temp Pulse Resp BP Pulse Ox 97.5 F 81 17 134/64 H 100 01/07/20 11:15 01/07/20 11:15 01/07/20 11:15 01/07/20 11:15 01/07/20 11:15 Intake & Output 01/06/20 01/07/20 01/08/20 06:59 06:59 06:59 Intake Total 2890 2682 616 Output Total 250 Balance 2890 2432 616 Weight 96.2 kg 98.7 kg General appearance: PRESENT: no acute distress, cooperative, well-developed, well-nourished Head exam: PRESENT: atraumatic, normocephalic Eye exam: PRESENT: conjunctiva pink, EOMI, PERRLA. ABSENT: scleral icterus Mouth exam: PRESENT: moist, tongue midline Teeth exam: PRESENT: dental caries, poor dentation Respiratory exam: PRESENT: clear to auscultation brandon, symmetrical, unlabored. ABSENT: rales, rhonchi, wheezes Cardiovascular exam: PRESENT: RRR, +S1, +S2. ABSENT: diastolic murmur, rubs, systolic murmur Vascular exam: PRESENT: normal capillary refill Extremities exam: PRESENT: full ROM. ABSENT: calf tenderness, clubbing, pedal edema Musculoskeletal exam: PRESENT: ambulatory Neurological exam: PRESENT: alert, awake, oriented to person, oriented to place, oriented to time, oriented to situation, CN II-XII grossly intact. ABSENT: motor sensory deficit Psychiatric exam: PRESENT: appropriate affect, normal mood. ABSENT: homicidal ideation, suicidal ideation Skin exam: PRESENT: dry, intact, warm. ABSENT: cyanosis, rash Results Laboratory Results: 01/07/20 06:09 01/07/20 06:09 01/07/20 01/07/20 06:09 06:09 WBC 8.5 RBC 4.38 Hgb 13.3 L Hct 38.6 MCV 88 MCH 30.5 MCHC 34.6 RDW 13.3 Plt Count 403 Seg Neutrophils % 61.0 Sodium 138.9 Potassium 4.4 Chloride 103 Carbon Dioxide 29 Anion Gap 7 BUN 9 Creatinine 0.80 Est GFR ( Amer) > 60 Glucose 92 Calcium 9.5 01/05/20 23:04 Blood Blood Culture (PCR) - Final Staphylococcus Aureus Impressions: Abdomen/Pelvis CT 01/05/20 22:33 IMPRESSION: No acute findings. Normal appendix. TECHNICAL DOCUMENTATION: Quality ID # 436: Final reports with documentation of one or more dose reduction techniques (e.g., Automated exposure control, adjustment of the mA and/or kV according to patient size, use of iterative reconstruction technique) copyright 2011 [employer]- All Rights Reserved Chest X-Ray 01/05/20 23:28 IMPRESSION: No acute cardiopulmonary abnormality copyright 2010 [employer]- All Rights Reserved Assessment and Plan - Diagnosis (1) Bacteremia Is this a current diagnosis for this admission?: Yes Plan: MSSA bacteremia (Blood cultures 12/29/19) Repeat blood cultures (1 set) also positive. Will repeat cultures again tomorrow (48 hrs following start of antibiotics) Concern for endocarditis given IV drug abuse Patient is admitted to the medical floor on telemetry. Continue IV nafcillin Follow-up 2D echo (2) Endocarditis Is this a current diagnosis for this admission?: Yes Plan: Suggested by #1, follow-up 2D echo, continue empiric nafcillin. (3) History of intravenous drug abuse Is this a current diagnosis for this admission?: Yes Plan: Supportive care Monitor for evidence of withdrawal. HIV negative Hepatitis pending Discharge planning consulted (4) Back pain Qualifiers: Back pain location: low back pain Back pain laterality: left Sciatica presence: without sciatica Is this a current diagnosis for this admission?: Yes Plan: MRI (11/19/19 and 12/28/29) show L4-S1 mild DDD No acute/concerning findings. Toradol prn Trial Lidoderm Will add low dose Tramadol prn Nonpharmacological interventions - Time Time Spent with patient: 25-34 minutes Medications reviewed and adjusted accordingly: Yes
[2020-01-07] MEDS: CYCLOBENZAPRINE HCL 10 MG TABLET PO PRN (16:22)
--- NOTE | 2020-01-07 16:44 | XCELERA REPORT ---
[address] [address] Transthoracic Echocardiogram Report Name: CHRIS LONDON Age: 24 yrs Gender: Male : 1995 Patient Status: Inpatient Patient Location: [address] [place] [address] Study Date: 01/07/2020 09:42 AM Height: 75 in Weight: 212 lb BSA: 2.2 m2 Procedure: A two-dimensional transthoracic echocardiogram with color flow and Doppler was performed. Study Quality: Good. Reason For Study: Staph aureus bacteremia with IV drug use History: Staph aureus bacteremia / IV drug use. Ordering Physician: CHRIS RAMOS Performed By: Amada Mace Interpretation Summary Consider DENNIS if endocaditis is high on the suspicion list. The left ventricle is normal in size. There is normal left ventricular wall thickness. LV EF is > than 65% Left ventricular systolic function is normal. Doppler measurements suggest normal left ventricular diastolic function The left ventricular wall motion is normal. There is no thrombus. There is no ASD,VSD,or PFO seen. There is no evidence of mitral valve prolapse. There is no vegetation seen on the mitral valve. There is no mitral valve stenosis. There is no mitral regurgitation noted. There is no aortic valvular vegetation. There is no aortic valve stenosis There is no LVOT obstruction. No aortic regurgitation is present. There is no tricuspid valve vegetation. There is no tricuspid stenosis. There is a trace to mild amount of tricuspid regurgitation There is mild pulmonary hypertension by echo RVSP s 38 to to 43 mm of Hg , with RA mean of 5 to 10. There is no vegetation on the pulmonic valve. There is no pulmonic valvular stenosis. There is a trace amount of pulmonic regurgitation The aortic root is normal size. The inferior vena cava appeared normal and decreased > 50% with respiration (RAP 5-10 mmHg) There is no pericardial effusion. Consider DENNIS if endocaditis is high on the suspicion list. MMode/2D Measurements & Calculations RVDd: 2.5 cm LVIDd: 5.0 cm FS: 37.6 % Ao root diam: 3.2 cm IVSd: 1.0 cm LVIDs: 3.1 cm EDV(Teich): 118.2 ml Ao root area: 7.8 cm2 LVPWd: 0.94 cm ESV(Teich): 38.6 ml LA dimension: 3.0 cm EF(Teich): 67.4 % Doppler Measurements & Calculations MV E max chelsea: MV P1/2t max chelsea: Ao V2 max: LV V1 max P.8 cm/sec 109.4 cm/sec 131.1 cm/sec 6.0 mmHg MV A max chelsea: MV P1/2t: 50.2 msec Ao max PG: LV V1 max: 72.6 cm/sec MVA(P1/2t): 4.4 cm2 6.9 mmHg 122.4 cm/sec MV E/A: 1.2 MV dec slope: 637.9 cm/sec2 MV dec time: 0.21 sec PA V2 max: PI end-d chelsea: TR max chelsea: MV P1/2t-pr_phl: 92.3 cm/sec 126.2 cm/sec 289.1 cm/sec 50.2 msec PA max PG: TR max P.4 mmHg 33.4 mmHg Left Ventricle The left ventricle is normal in size. There is normal left ventricular wall thickness. LV EF is > than 65%. Left ventricular systolic function is normal. Doppler measurements suggest normal left ventricular diastolic function. The left ventricular wall motion is normal. There is no thrombus. There is no ASD,VSD,or PFO seen. Mitral Valve There is no evidence of mitral valve prolapse. There is no vegetation seen on the mitral valve. There is no mitral valve stenosis. There is no mitral regurgitation noted. Aortic Valve There is no aortic valvular vegetation. There is no aortic valve stenosis. There is no LVOT obstruction. No aortic regurgitation is present. Tricuspid Valve There is no tricuspid valve vegetation. There is no tricuspid stenosis. There is a trace to mild amount of tricuspid regurgitation. There is mild pulmonary hypertension by echo. RVSP s 38 to to 43 mm of Hg , with RA mean of 5 to 10. Pulmonic Valve There is no vegetation on the pulmonic valve. There is no pulmonic valvular stenosis. There is a trace amount of pulmonic regurgitation. Great Vessels The aortic root is normal size. The inferior vena cava appeared normal and decreased > 50% with respiration (RAP 5-10 mmHg). Effusions There is no pericardial effusion. : CHRIS RAMOS, Rachelle
[2020-01-07] MEDS: NAFCILLIN SODIUM IV SCH (20:16)
[2020-01-07] MEDS: NORMAL SALINE IV SCH (20:16)
[2020-01-08] MEDS: NORMAL SALINE IV SCH ×7 (00:11→23:26)
[2020-01-08] MEDS: NAFCILLIN SODIUM IV SCH ×7 (00:11→23:26)
[2020-01-08] MEDS: KETOROLAC TROMETHAMINE INJ/PF 30 MG/1 ML SDV IV PRN ×2 (00:11→06:06)
[2020-01-08] MEDS: CYCLOBENZAPRINE HCL 10 MG TABLET PO PRN ×3 (00:11→17:17)
[2020-01-08 05:37] LABS: HEPATITS B SURFACE ANTIGEN Negative (Negative)
[2020-01-08] MEDS: HEPARIN SOD (PORCINE) 5,000 UNIT/ML 1 ML VIAL SUBCUT SCH ×3 (06:06→22:01)
[2020-01-08 07:11] LABS: HEPATITIS C VIRUS ANTIBODY >11.0 s/co ratio (0.0-0.9)
[2020-01-08] MEDS: DOCUSATE SODIUM 100 MG CAPSULE PO SCH ×2 (10:08→17:06)
[2020-01-08] MEDS: LIDOCAINE 5% (700 MG) TRANSDERMAL ADH..PATCH TP SCH (10:49)
[2020-01-08] MEDS: IBUPROFEN 600 MG TABLET PO PRN (11:44)
--- NOTE | 2020-01-08 12:42 | PDOC PROGRESS REPORT ---
Subjective Progress Note for:: 01/08/20 Subjective:: CHRIS LONDON is a 24 year old male with a past medical history of IV heroin drug abuse who was admitted for MSSA bacteremia. Patient was seen in morning rounds. He reports continued left lower back pain and bilateral hip pain that kept him up last night, otherwise states he is feeling well. Asks for increased flexeril dose and sleep aid. He denies recent fevers, chills, chest pain, palpitations, dyspnea, abd pain, nausea and vomiting. Denies any recent dental abscess or skin wounds. Reports last IVDU to be nearly a year ago (notably, yesterday he stated 6 months ago). He has no other questions or concerns at this time. Nursing has noted that the patient becomes tachycardic (HR 140s) while ambulating in his room. Reason For Visit: IV DRUG ABUSE,STAPH AUREUS BACTEREMIA Physical Exam Vital Signs: Temp Pulse Resp BP Pulse Ox 98.3 F 92 15 122/66 100 01/08/20 10:52 01/08/20 10:52 01/08/20 10:52 01/08/20 10:52 01/08/20 10:52 Intake & Output 01/07/20 01/08/20 01/09/20 06:59 06:59 06:59 Intake Total 2682 2131 626 Output Total 250 Balance 2432 2131 626 Weight 98.7 kg 99.7 kg General appearance: PRESENT: no acute distress, cooperative, well-developed, well-nourished - Overweight Head exam: PRESENT: atraumatic, normocephalic Eye exam: PRESENT: conjunctiva pink, EOMI, PERRLA. ABSENT: scleral icterus Mouth exam: PRESENT: moist, tongue midline Teeth exam: PRESENT: dental caries, poor dentation Respiratory exam: PRESENT: clear to auscultation brandon, symmetrical, unlabored. ABSENT: rales, rhonchi, wheezes Cardiovascular exam: PRESENT: RRR, +S1, +S2, tachycardia. ABSENT: diastolic murmur, rubs, systolic murmur Pulses: PRESENT: normal dorsalis pedis pul Vascular exam: PRESENT: normal capillary refill Extremities exam: PRESENT: full ROM. ABSENT: calf tenderness, clubbing, pedal edema Musculoskeletal exam: PRESENT: ambulatory Neurological exam: PRESENT: alert, awake, oriented to person, oriented to place, oriented to time, oriented to situation, CN II-XII grossly intact. ABSENT: motor sensory deficit Psychiatric exam: PRESENT: appropriate affect, normal mood. ABSENT: homicidal ideation, suicidal ideation Skin exam: PRESENT: dry, intact, warm. ABSENT: cyanosis, rash Results Laboratory Results: 01/07/20 06:09 01/07/20 06:09 01/05/20 23:04 Blood Blood Culture (PCR) - Final Staphylococcus Aureus 01/06/20 02:17 Blood Blood Culture (PCR) - Final Staphylococcus Aureus Impressions: Abdomen/Pelvis CT 01/05/20 22:33 IMPRESSION: No acute findings. Normal appendix. TECHNICAL DOCUMENTATION: Quality ID # 436: Final reports with documentation of one or more dose reduction techniques (e.g., Automated exposure control, adjustment of the mA and/or kV according to patient size, use of iterative reconstruction technique) copyright 2010 [employer]- All Rights Reserved Chest X-Ray 01/05/20 23:28 IMPRESSION: No acute cardiopulmonary abnormality copyright 2010 [employer]- All Rights Reserved Assessment and Plan - Diagnosis (1) Bacteremia Is this a current diagnosis for this admission?: Yes Plan: MSSA bacteremia (Blood cultures 12/29/19) MSSA bacteremia (both cultures) Will repeat cultures again tomorrow (48 hrs following start of antibiotics) Concern for endocarditis given IV drug abuse TTE negative for endocarditis. Lumbar MRI (11/19/2019, 12/29/2027) are both negative for osteomyelitis, discitis, psoas muscle abscess. DENNIS pending. Patient is admitted to the medical floor on telemetry. Continue IV nafcillin Infectious diseases consulted. (2) Endocarditis Is this a current diagnosis for this admission?: Yes Plan: Suggested by #1 Evaluation and management as above. (3) History of intravenous drug abuse Is this a current diagnosis for this admission?: Yes Plan: Supportive care Monitor for evidence of withdrawal. HIV negative Hepatitis positive for hepatitis C Outpatient GI referral for hep C treatment Discharge planning consulted (4) Back pain Qualifiers: Back pain location: low back pain Back pain laterality: left Sciatica presence: without sciatica Is this a current diagnosis for this admission?: Yes Plan: MRI (11/19/19 and 12/28/29) show L4-S1 mild DDD No acute/concerning findings. PRN Tylenol ibuprofen, and Flexeril. Lidoderm patch. Nonpharmacological interventions (5) Difficulty sleeping Is this a current diagnosis for this admission?: Yes Plan: Ambien 2.5 mg nightly as needed - Time Time Spent with patient: 25-34 minutes Medications reviewed and adjusted accordingly: Yes
--- NOTE | 2020-01-08 13:41 | Progress Note ---
Provider Note Provider Note: [facility] ID Telephone Advice Consultation Chart reviewed. This is a 24-year-old man with active heroin use who was rece ntly seen in the ED due to abdominal and back pain. He had an MRI of the spine which was negative for discitis or vertebral osteomyelitis, also no psoas abscess noted. His blood cultures on the other hand were positive for MSSA. He returned to the hospital, he was tachycardic, hypotensive, had leukocytosis. He was started on nafcillin. New blood cultures on admission positive. He has a heart murmur for which a TTE was done but it was negative. A DENNIS is pending. CT scan of abdomen and pelvis is negative for any acute process. CXR was negative as well. His Hep C ab is positive. ID consulted for recommendations. PMH: Depression Heronin IV use Allergies: No Known Allergies Allergy (Unverified 01/29/18 00:21) Medications: Acetaminophen [Tylenol] 325 mg PO DAILYP PRN 01/06/20 Ibuprofen 200 mg PO DAILYP PRN 01/06/20 Vital Signs: Temp Pulse Resp BP Pulse Ox 98.3 F 92 15 122/66 100 01/08/20 10:52 01/08/20 10:52 01/08/20 10:52 01/08/20 10:52 01/08/20 10:52 Intake & Output 01/07/20 01/08/20 01/09/20 06:59 06:59 06:59 Intake Total 2682 2131 626 Output Total 250 Balance 2432 2131 626 Weight 98.7 kg 99.7 kg Weight/Height Weight 99.7 kg Height 6 ft 3 in Laboratories: 01/07/20 06:09 01/07/20 06:09 MCV 88 fl (80-97) 01/07/20 06:09 MCH 30.5 pg (27.0-33.4) 01/07/20 06:09 MCHC 34.6 g/dL (32.0-36.0) 01/07/20 06:09 RDW 13.3 % (11.5-14.0) 01/07/20 06:09 Seg Neutrophils % 61.0 % (42-78) 01/07/20 06:09 Chloride 103 mmol/L (98-107) 01/07/20 06:09 Carbon Dioxide 29 mmol/L (22-30) 01/07/20 06:09 Anion Gap 7 (5-19) 01/07/20 06:09 Est GFR ( Amer) > 60 (>60) 01/07/20 06:09 Glucose 92 mg/dL (75-110) 01/07/20 06:09 Lactic Acid 0.5 mmol/L (0.7-2.1) L 01/06/20 04:42 Calcium 9.5 mg/dL (8.4-10.2) 01/07/20 06:09 Total Bilirubin 1.1 mg/dL (0.2-1.3) 01/05/20 23:04 AST 39 U/L (17-59) 01/05/20 23:04 Alkaline Phosphatase 89 U/L (38-126) 01/05/20 23:04 Total Protein 8.3 g/dL (6.3-8.2) H 01/05/20 23:04 Albumin 4.5 g/dL (3.5-5.0) 01/05/20 23:04 Urine Color YELLOW 01/06/20 02:01 Urine Appearance CLEAR 01/06/20 02:01 Urine pH 6.0 (5.0-9.0) 01/06/20 02:01 Ur Specific [place] 1.048 01/06/20 02:01 Urine Protein NEGATIVE mg/dL (NEGATIVE) 01/06/20 02:01 Urine Glucose (UA) NEGATIVE mg/dL (NEGATIVE) 01/06/20 02:01 Urine Ketones NEGATIVE mg/dL (NEGATIVE) 01/06/20 02:01 Urine Blood NEGATIVE (NEGATIVE) 01/06/20 02:01 Urine RBC (Auto) 0 /HPF 01/06/20 02:01 01/05/20 23:04 Blood Blood Culture (PCR) - Final Staphylococcus Aureus 01/05/20 23:04 Blood Blood Culture - Final Staphylococcus Aureus 01/06/20 02:17 Blood Blood Culture (PCR) - Final Staphylococcus Aureus Radiology: Abdomen/Pelvis CT 01/05/20 22:33 IMPRESSION: No acute findings. Normal appendix. Chest X-Ray 01/05/20 23:28 IMPRESSION: No acute cardiopulmonary abnormality Assessment and Recommendations: Patient evaluated due to MSSA bacteremia in the setting of active drug use. He has been afebrile, HD stable, leukocytosis improved. TTE, CT abdomen and pelvis and CXR all negative for possible metastatic infection. He had a recent MRI as well. Even though there is no evidence of discitis or vertebral osteomyelitis, we should be vigilant for the potential development of a phlegmon as he has been bacteremic for few days, he already has degenerative changes in the area and has significant back pain as this is a common site for metastatic infection. A DENNIS is pending to rule out endovascular complications. Will recommend to repeat blood cultures in 24-48 hr to document clearance of the bacteremia. He will need a minimum of 4 weeks of nafcillin from negative blood cultures if no other site of metastatic infection is identified and DENNIS is negative. Otherwise, he will need 6 weeks. Can do baseline ESR and CRP as well. HCV can be addressed as outpatient. Please call if updates and questions. Kely Najera MD [facility] [phone]
[2020-01-08] MEDS: ACETAMINOPHEN 325 MG TABLET PO PRN ×2 (13:59→23:26)
[2020-01-08] MEDS: ZOLPIDEM TARTRATE 5 MG TABLET PO PRN (22:00)
[2020-01-09] MEDS: CYCLOBENZAPRINE HCL 10 MG TABLET PO PRN ×3 (02:06→20:15)
[2020-01-09] MEDS: NAFCILLIN SODIUM 2 GM in DEXTROSE 5%-WATER 100 ML IV SCH ×5 (03:35→20:10)
[2020-01-09] MEDS: IBUPROFEN 600 MG TABLET PO PRN ×3 (05:19→20:10)
[2020-01-09] MEDS: HEPARIN SOD (PORCINE) 5,000 UNIT/ML 1 ML VIAL SUBCUT SCH ×3 (05:19→22:34)
[2020-01-09] MEDS: DOCUSATE SODIUM 100 MG CAPSULE PO SCH ×2 (09:45→17:49)
[2020-01-09] MEDS: LIDOCAINE 5% (700 MG) TRANSDERMAL ADH..PATCH TP SCH ×2 (09:45→13:11)
[2020-01-09] MEDS: ACETAMINOPHEN 325 MG TABLET PO PRN ×3 (10:55→22:34)
--- NOTE | 2020-01-09 14:50 | PDOC PROGRESS REPORT ---
Subjective Progress Note for:: 01/09/20 Subjective:: CHRIS LONDON is a 24 year old male with a past medical history of IV heroin drug abuse. He presents 7 days after an ER visit work-up for abdominal and back pain. He was summons to return to the emergency department for positive blood cultures with non-MRSA staph aureus. He is found to have hypotension, tachycardia, subjective fever, leukocytosis but an otherwise unremarkable work- up. He received Zosyn and referred to the hospitalist for admission. He denies previous history of endocarditis. 01/09/2020. No acute events overnight. Currently receiving up in distress. Complaining of persistent back pain otherwise denies any fever, chills, nausea, vomiting, diarrhea, constipation or any urinary symptoms. Having normal bowel and bladder movement. P.o. tolerant alert and oriented cooperative with physical examination. Reason For Visit: IV DRUG ABUSE,STAPH AUREUS BACTEREMIA Physical Exam Vital Signs: Temp Pulse Resp BP Pulse Ox 97.7 F 76 16 128/65 H 100 01/09/20 11:13 01/09/20 11:13 01/09/20 11:13 01/09/20 11:13 01/09/20 11:13 Intake & Output 01/08/20 01/09/20 01/10/20 06:59 06:59 06:59 Intake Total 2131 1320 240 Balance 2131 1320 240 Weight 99.7 kg 99.5 kg General appearance: PRESENT: no acute distress, well-developed, well-nourished Head exam: PRESENT: atraumatic, normocephalic Respiratory exam: PRESENT: clear to auscultation brandon. ABSENT: rales, rhonchi, wheezes Cardiovascular exam: PRESENT: RRR, systolic murmur. ABSENT: diastolic murmur, rubs GI/Abdominal exam: PRESENT: normal bowel sounds, soft. ABSENT: distended, guarding, mass, organolmegaly, rebound, tenderness Neurological exam: PRESENT: alert, awake, oriented to person, oriented to place, oriented to time, oriented to situation, CN II-XII grossly intact. ABSENT: motor sensory deficit Results Laboratory Results: 01/07/20 06:09 01/07/20 06:09 01/06/20 02:17 Blood Blood Culture (PCR) - Final Staphylococcus Aureus 01/06/20 02:17 Blood Blood Culture - Final Staphylococcus Aureus 01/05/20 23:04 Blood Blood Culture (PCR) - Final Staphylococcus Aureus 01/05/20 23:04 Blood Blood Culture - Final Staphylococcus Aureus Impressions: Abdomen/Pelvis CT 01/05/20 22:33 IMPRESSION: No acute findings. Normal appendix. TECHNICAL DOCUMENTATION: Quality ID # 436: Final reports with documentation of one or more dose reduction techniques (e.g., Automated exposure control, adjustment of the mA and/or kV according to patient size, use of iterative reconstruction technique) copyright 2010 [employer]- All Rights Reserved Chest X-Ray 01/05/20 23:28 IMPRESSION: No acute cardiopulmonary abnormality copyright 2010 [employer]- All Rights Reserved Assessment and Plan - Diagnosis (1) Bacteremia Is this a current diagnosis for this admission?: Yes Plan: History of heroin abuse. Most likely source skin. MSSA bacteremia (Blood cultures 12/29/19) MSSA bacteremia (both cultures) Given history of IV abuse concern for endocarditis. TTE negative for endocarditis. Lumbar MRI (11/19/2019, 12/29/2027) are both negative for osteomyelitis, discitis, psoas muscle abscess. Day 3 IV antibiotics. Day 3 of IV nafcillin. Pending DENNIS. Will possibly need 4 to 6 weeks of IV antibiotics depending on the findings of DENNIS. ID consulted. Recommendations noted. (2) Endocarditis Is this a current diagnosis for this admission?: Yes Plan: Suggested by #1 Evaluation and management as above. (3) Back pain Qualifiers: Back pain location: low back pain Back pain laterality: left Sciatica presence: without sciatica Is this a current diagnosis for this admission?: Yes Plan: MRI (11/19/19 and 12/28/29) show L4-S1 mild DDD No acute/concerning findings. PRN Tylenol ibuprofen, and Flexeril. Lidoderm patch. Nonpharmacological interventions (4) History of intravenous drug abuse Is this a current diagnosis for this admission?: Yes Plan: Supportive care Monitor for evidence of withdrawal. HIV negative Hepatitis positive for hepatitis C Outpatient GI referral for hep C treatment Discharge planning consulted
[2020-01-09] MEDS: ZOLPIDEM TARTRATE 5 MG TABLET PO PRN (22:35)
[2020-01-10] MEDS: NAFCILLIN SODIUM 2 GM in DEXTROSE 5%-WATER 100 ML IV SCH ×7 (00:09→23:28)
[2020-01-10] MEDS: CYCLOBENZAPRINE HCL 10 MG TABLET PO PRN (05:15)
[2020-01-10] MEDS: HEPARIN SOD (PORCINE) 5,000 UNIT/ML 1 ML VIAL SUBCUT SCH ×3 (05:15→22:06)
[2020-01-10] MEDS: IBUPROFEN 600 MG TABLET PO PRN ×2 (05:39→15:52)
[2020-01-10] MEDS: ACETAMINOPHEN 325 MG TABLET PO PRN ×2 (07:47→19:53)
[2020-01-10] MEDS: LIDOCAINE 5% (700 MG) TRANSDERMAL ADH..PATCH TP SCH (07:51)
[2020-01-10] MEDS: DOCUSATE SODIUM 100 MG CAPSULE PO SCH ×2 (11:18→17:02)
--- NOTE | 2020-01-10 12:27 | PDOC PROGRESS REPORT ---
Subjective Progress Note for:: 01/10/20 Subjective:: CHRIS LONDON is a 24 year old male with a past medical history of IV heroin drug abuse. He presents 7 days after an ER visit work-up for abdominal and back pain. He was summons to return to the emergency department for positive blood cultures with non-MRSA staph aureus. He is found to have hypotension, tachycardia, subjective fever, leukocytosis but an otherwise unremarkable work- up. He received Zosyn and referred to the hospitalist for admission. He denies previous history of endocarditis. 01/09/2020. No acute events overnight. Currently resting in bed. Complaining of persistent back pain otherwise denies any fever, chills, nausea, vomiting, diarrhea, constipation or any urinary symptoms. Having normal bowel and bladder movement. P.o. tolerant alert and oriented cooperative with physical examination. 01/10/2020. No acute events overnight. Complaining of back pain. Otherwise denies any fever, chills, nausea, vomiting, diarrhea, constipation or any urinary symptoms. Scheduled to have his DENNIS done today. Reason For Visit: IV DRUG ABUSE,STAPH AUREUS BACTEREMIA Physical Exam Vital Signs: Temp Pulse Resp BP Pulse Ox 98.7 F 90 16 125/62 98 01/10/20 08:00 01/10/20 08:00 01/10/20 08:00 01/10/20 08:00 01/10/20 08:00 Intake & Output 01/09/20 01/10/20 01/11/20 06:59 06:59 06:59 Intake Total 1320 2326 Balance 1320 2326 Weight 99.5 kg 97.4 kg Results Laboratory Results: 01/07/20 06:09 01/07/20 06:09 01/10/20 09:40 C-Reactive Protein 56.4 H 01/06/20 02:17 Blood Blood Culture (PCR) - Final Staphylococcus Aureus 01/06/20 02:17 Blood Blood Culture - Final Staphylococcus Aureus Impressions: Abdomen/Pelvis CT 01/05/20 22:33 IMPRESSION: No acute findings. Normal appendix. TECHNICAL DOCUMENTATION: Quality ID # 436: Final reports with documentation of one or more dose reduction techniques (e.g., Automated exposure control, adjustment of the mA and/or kV according to patient size, use of iterative reconstruction technique) copyright 2011 [employer]- All Rights Reserved Chest X-Ray 01/05/20 23:28 IMPRESSION: No acute cardiopulmonary abnormality copyright 2010 [employer]- All Rights Reserved Assessment and Plan - Diagnosis (1) Bacteremia Is this a current diagnosis for this admission?: Yes Plan: History of heroin abuse. Most likely source skin. MSSA bacteremia (Blood cultures 12/29/19) MSSA bacteremia (both cultures) Given history of IV abuse concern for endocarditis. TTE negative for endocarditis. Lumbar MRI (11/19/2019, 12/29/2027) are both negative for osteomyelitis, discitis, psoas muscle abscess. Day 4 IV antibiotics. Day 4 of IV nafcillin. Pending DENNIS. Will possibly need 4 to 6 weeks of IV antibiotics depending on the findings of DENNIS. Will need a PICC line if culture remains negative x48 hours. ID consulted. Recommendations noted. (2) Endocarditis Is this a current diagnosis for this admission?: Yes Plan: Suggested by #1 Evaluation and management as above. (3) Back pain Qualifiers: Back pain location: low back pain Back pain laterality: left Sciatica presence: without sciatica Is this a current diagnosis for this admission?: Yes Plan: MRI (11/19/19 and 12/28/29) show L4-S1 mild DDD No acute/concerning findings. PRN Tylenol ibuprofen, and Flexeril. Lidoderm patch. Nonpharmacological interventions (4) History of intravenous drug abuse Is this a current diagnosis for this admission?: Yes Plan: Supportive care Monitor for evidence of withdrawal. HIV negative Hepatitis positive for hepatitis C Outpatient GI referral for hep C treatment Discharge planning consulted
[2020-01-10] MEDS: TIZANIDINE HCL 4 MG TABLET PO SCH ×2 (13:41→22:06)
--- NOTE | 2020-01-10 15:10 | XCELERA REPORT ---
Study ID: [id number] [address] [id number] Transesophageal Echocardiogram Report Name: CHRIS LONDON Age: 24 yrs Gender: Male : 1995 Patient Status: Inpatient Patient Location: [address] [place], [place] [address] Study Date: 01/10/2020 11:01 AM History: IVDU Bacteremia Height: 75 in Weight: 219 lb BSA: 2.3 m2 Reason For Study: MSSA bacteremia Ordering Physician: ARCADIO MARTINEZ Performed By: Ariadna Thorpe Interpretation Summary No vegetation is seen. Left ventricular systolic function is normal. Ejection Fraction = >55%. The right ventricle is normal in size and function. There is trace mitral regurgitation. No hemodynamically significant valvular aortic stenosis. There is no pericardial effusion. No vegetation is seen Procedure A complete two-dimensional transesophageal echocardiogram was performed (2D, spectral and color flow Doppler). Informed consent for Transesophageal Echocardiogram, and use of a contrast agent as needed, was obtained prior to the procedure. The patient was brought to the OR in a fasting state. An intravenous line was placed. A topical anesthetic agent was used for oropharangeal anesthesia. A bite block was inserted. IV conscious sedation was administered using per Anesthesia team. The patient's vital signs, including blood pressure, heart rate, pulse oximetry and cardiac rhythm were monitored thoughout the procedure. The transesophageal probe was passed without difficulty. The usual views were obtained; basal, mid-esophageal, transgastric and aortic views. The patient tolerated the procedure well without evidence of orophangeal or esophageal trauma. Subsequent to all the images being obtained the probe was removed with out trauma. Left Ventricle The left ventricle is grossly normal size. There is no thrombus. There is normal left ventricular wall thickness. Left ventricular systolic function is normal. Ejection Fraction = >55%. No regional wall motion abnormalities noted. Right Ventricle The right ventricle is normal in size and function. Atria The interatrial septum is intact with no evidence for an atrial septal defect. The left atrial size is normal. Right atrial size is normal. Mitral Valve The mitral valve is normal in structure and function. There is no vegetation seen on the mitral valve. There is trace mitral regurgitation. Tricuspid Valve The tricuspid valve is normal in structure and function. There is no tricuspid valve vegetation. No tricuspid regurgitation. Aortic Valve The aortic valve is trileaflet. The aortic valve opens well. The aortic valve is normal in structure and function. No hemodynamically significant valvular aortic stenosis. No aortic regurgitation is present. Pulmonic Valve The pulmonic valve is not well visualized. Arteries The aortic root is not well visualized but is probably normal size. Pericardium There is no pericardial effusion. : ARCADIO MARTINEZ Anil
[2020-01-10] MEDS: TRAMADOL HCL 50 MG TABLET PO PRN (17:05)
[2020-01-10] MEDS: ZOLPIDEM TARTRATE 5 MG TABLET PO PRN (22:06)
[2020-01-10] MEDS: PHARMACY COMMUNICATION ORDER MC SCH (22:07)
[2020-01-11] MEDS: TRAMADOL HCL 50 MG TABLET PO PRN ×3 (03:12→20:51)
[2020-01-11] MEDS: NAFCILLIN SODIUM 2 GM in DEXTROSE 5%-WATER 100 ML IV SCH ×5 (03:12→20:43)
[2020-01-11] MEDS: IBUPROFEN 600 MG TABLET PO PRN ×2 (04:33→17:11)
[2020-01-11] MEDS: TIZANIDINE HCL 4 MG TABLET PO SCH ×2 (05:11→13:00)
[2020-01-11] MEDS: HEPARIN SOD (PORCINE) 5,000 UNIT/ML 1 ML VIAL SUBCUT SCH ×3 (05:11→21:03)
[2020-01-11] MEDS: ACETAMINOPHEN 325 MG TABLET PO PRN ×3 (08:26→23:20)
[2020-01-11] MEDS: DOCUSATE SODIUM 100 MG CAPSULE PO SCH ×2 (09:10→17:01)
[2020-01-11] MEDS: LIDOCAINE 5% (700 MG) TRANSDERMAL ADH..PATCH TP SCH (09:13)
--- NOTE | 2020-01-11 11:24 | PDOC PROGRESS REPORT ---
Subjective Progress Note for:: 01/11/20 Subjective:: CHRIS LONDON is a 24 year old male with a past medical history of IV heroin drug abuse. He presents 7 days after an ER visit work-up for abdominal and back pain. He was summons to return to the emergency department for positive blood cultures with non-MRSA staph aureus. He is found to have hypotension, tachycardia, subjective fever, leukocytosis but an otherwise unremarkable work- up. He received Zosyn and referred to the hospitalist for admission. He denies previous history of endocarditis. 01/09/2020. No acute events overnight. Currently resting in bed. Complaining of persistent back pain otherwise denies any fever, chills, nausea, vomiting, diarrhea, constipation or any urinary symptoms. Having normal bowel and bladder movement. P.o. tolerant alert and oriented cooperative with physical examination. 01/10/2020. No acute events overnight. Complaining of back pain. Otherwise denies any fever, chills, nausea, vomiting, diarrhea, constipation or any urinary symptoms. Scheduled to have his DENNIS done today. 01/11/2020. No acute events overnight. Still complaining of back pain. Ambulatory, having normal bowel and bladder movement, denies any fever, chills, nausea, vomiting, diarrhea, constipation or any urinary symptoms. Unfortunately blood culture from 01/09/2020 is again positive for staph aureus. Reason For Visit: IV DRUG ABUSE,STAPH AUREUS BACTEREMIA Physical Exam Vital Signs: Temp Pulse Resp BP Pulse Ox 98.4 F 78 16 130/68 H 97 01/11/20 07:26 01/11/20 07:26 01/11/20 07:26 01/11/20 07:26 01/11/20 07:26 Intake & Output 01/10/20 01/11/20 01/12/20 06:59 06:59 06:59 Intake Total 2326 1645 Balance 2326 1645 Weight 97.4 kg 97.2 kg General appearance: PRESENT: no acute distress, well-developed, well-nourished Head exam: PRESENT: atraumatic, normocephalic Respiratory exam: PRESENT: clear to auscultation brandon. ABSENT: rales, rhonchi, wheezes Cardiovascular exam: PRESENT: RRR. ABSENT: diastolic murmur, rubs, systolic murmur GI/Abdominal exam: PRESENT: normal bowel sounds, soft. ABSENT: distended, guarding, mass, organolmegaly, rebound, tenderness Neurological exam: PRESENT: alert, awake, oriented to person, oriented to place, oriented to time, oriented to situation, CN II-XII grossly intact. ABSENT: motor sensory deficit Results Laboratory Results: 01/07/20 06:09 01/07/20 06:09 01/09/20 05:23 Blood Blood Culture (PCR) - Final Staphylococcus Aureus Impressions: Abdomen/Pelvis CT 01/05/20 22:33 IMPRESSION: No acute findings. Normal appendix. TECHNICAL DOCUMENTATION: Quality ID # 436: Final reports with documentation of one or more dose reduction techniques (e.g., Automated exposure control, adjustment of the mA and/or kV according to patient size, use of iterative reconstruction technique) copyright 2010 [facility]- All Rights Reserved Chest X-Ray 01/05/20 23:28 IMPRESSION: No acute cardiopulmonary abnormality copyright 2010 [facility]- All Rights Reserved Assessment and Plan - Diagnosis (1) Bacteremia Is this a current diagnosis for this admission?: Yes Plan: History of heroin abuse. Most likely source skin. Blood culture positive for MSSA 12/29/2019. Blood culture positive for MSSA 01/05/2020. Blood culture positive for MSSA 01/09/2020. Given history of IV abuse concern for endocarditis. TTE/DENNIS negative for endocarditis. Lumbar MRI (11/19/2019, 12/29/2027) are both negative for osteomyelitis, discitis, psoas muscle abscess. Day 5 IV antibiotics. Day 5 of IV nafcillin. Will need 4 weeks of IV antibiotics starting from last negative blood culture. Will need a PICC line if culture remains negative x48 hours. Continue IV antibiotics. Repeat blood culture. ID consulted. Recommendations noted. (2) Endocarditis Is this a current diagnosis for this admission?: Yes Plan: Ruled out. Afebrile. TTE/DENNIS negative for endocarditis. Suggested by #1 Evaluation and management as above. (3) Back pain Qualifiers: Back pain location: low back pain Back pain laterality: left Sciatica presence: without sciatica Is this a current diagnosis for this admission?: Yes Plan: MRI (11/19/19 and 12/28/29) show L4-S1 mild DDD No acute/concerning findings. PRN Tylenol ibuprofen, and Flexeril. Lidoderm patch. Nonpharmacological interventions (4) History of intravenous drug abuse Is this a current diagnosis for this admission?: Yes Plan: Supportive care Monitor for evidence of withdrawal. HIV negative Hepatitis positive for hepatitis C Outpatient GI referral for hep C treatment Discharge planning consulted
[2020-01-11] MEDS: CARISOPRODOL 350 MG TABLET PO SCH ×2 (18:12→21:03)
[2020-01-11] MEDS: KETOROLAC TROMETHAMINE INJ/PF 30 MG/1 ML SDV IV PRN (18:12)
[2020-01-11] MEDS: PHARMACY COMMUNICATION ORDER MC SCH ×2 (22:00→22:22)
[2020-01-11] MEDS: ZOLPIDEM TARTRATE 5 MG TABLET PO PRN (23:20)
[2020-01-12] MEDS: NAFCILLIN SODIUM 2 GM in DEXTROSE 5%-WATER 100 ML IV SCH ×7 (00:59→23:04)
[2020-01-12] MEDS: KETOROLAC TROMETHAMINE INJ/PF 30 MG/1 ML SDV IV PRN ×4 (03:45→20:48)
[2020-01-12] MEDS: HEPARIN SOD (PORCINE) 5,000 UNIT/ML 1 ML VIAL SUBCUT SCH ×3 (05:46→22:01)
[2020-01-12] MEDS: TRAMADOL HCL 50 MG TABLET PO PRN ×2 (07:53→16:15)
[2020-01-12] MEDS: DOCUSATE SODIUM 100 MG CAPSULE PO SCH ×2 (09:49→17:24)
[2020-01-12] MEDS: LIDOCAINE 5% (700 MG) TRANSDERMAL ADH..PATCH TP SCH (09:50)
[2020-01-12] MEDS: CARISOPRODOL 350 MG TABLET PO SCH ×4 (09:50→22:01)
[2020-01-12] MEDS: ACETAMINOPHEN 325 MG TABLET PO PRN (09:52)
--- NOTE | 2020-01-12 10:37 | PDOC PROGRESS REPORT ---
Subjective Progress Note for:: 01/12/20 Subjective:: CHRIS LONDON is a 24 year old male with a past medical history of IV heroin drug abuse. He presents 7 days after an ER visit work-up for abdominal and back pain. He was summons to return to the emergency department for positive blood cultures with non-MRSA staph aureus. He is found to have hypotension, tachycardia, subjective fever, leukocytosis but an otherwise unremarkable work- up. He received Zosyn and referred to the hospitalist for admission. He denies previous history of endocarditis. 01/09/2020. No acute events overnight. Currently resting in bed. Complaining of persistent back pain otherwise denies any fever, chills, nausea, vomiting, diarrhea, constipation or any urinary symptoms. Having normal bowel and bladder movement. P.o. tolerant alert and oriented cooperative with physical examination. 01/10/2020. No acute events overnight. Complaining of back pain. Otherwise denies any fever, chills, nausea, vomiting, diarrhea, constipation or any urinary symptoms. Scheduled to have his DENNIS done today. 01/11/2020. No acute events overnight. Still complaining of back pain. Ambulatory, having normal bowel and bladder movement, denies any fever, chills, nausea, vomiting, diarrhea, constipation or any urinary symptoms. Unfortunately blood culture from 01/09/2020 is again positive for staph aureus. 01/12/2020. No acute events overnight. Reported mild improvement of his back pain, denies any fever, chills, nausea, vomiting, diarrhea, constipation or any urinary symptoms. Ambulatory. Would like to restart his Zoloft and BuSpar that he used to take before. Reason For Visit: IV DRUG ABUSE,STAPH AUREUS BACTEREMIA Physical Exam Vital Signs: Temp Pulse Resp BP Pulse Ox 98.3 F 76 18 108/64 100 01/12/20 08:00 01/12/20 08:00 01/12/20 08:00 01/12/20 08:00 01/12/20 08:00 Intake & Output 01/11/20 01/12/20 01/13/20 06:59 06:59 06:59 Intake Total 1645 1644 Balance 1645 1644 Weight 97.2 kg 97.3 kg General appearance: PRESENT: no acute distress, well-developed, well-nourished Head exam: PRESENT: atraumatic, normocephalic Respiratory exam: PRESENT: clear to auscultation brandon. ABSENT: rales, rhonchi, wheezes Cardiovascular exam: PRESENT: RRR. ABSENT: diastolic murmur, rubs, systolic murmur Pulses: PRESENT: normal dorsalis pedis pul GI/Abdominal exam: PRESENT: normal bowel sounds, soft. ABSENT: distended, guarding, mass, organolmegaly, rebound, tenderness Extremities exam: PRESENT: full ROM, tenderness - Sacrum., other. ABSENT: calf tenderness, clubbing, pedal edema Neurological exam: PRESENT: alert, awake, oriented to person, oriented to place, oriented to time, oriented to situation, CN II-XII grossly intact. ABSENT: motor sensory deficit Skin exam: PRESENT: dry, intact, warm. ABSENT: cyanosis, rash Results Laboratory Results: 01/07/20 06:09 01/07/20 06:09 01/09/20 05:23 Blood Blood Culture (PCR) - Final Staphylococcus Aureus 01/09/20 04:26 Blood Blood Culture (PCR) - Final Staphylococcus Aureus Impressions: Abdomen/Pelvis CT 01/05/20 22:33 IMPRESSION: No acute findings. Normal appendix. TECHNICAL DOCUMENTATION: Quality ID # 436: Final reports with documentation of one or more dose reduction techniques (e.g., Automated exposure control, adjustment of the mA and/or kV according to patient size, use of iterative reconstruction technique) copyright 2011 [email or web address]- All Rights Reserved Chest X-Ray 01/05/20 23:28 IMPRESSION: No acute cardiopulmonary abnormality copyright 2010 [email or web address]- All Rights Reserved Assessment and Plan - Diagnosis (1) Bacteremia Is this a current diagnosis for this admission?: Yes Plan: History of heroin abuse. Most likely source skin. Blood culture positive for MSSA 12/29/2019. Blood culture positive for MSSA 01/05/2020. Blood culture positive for MSSA 01/09/2020. Given history of IV abuse concern for endocarditis. TTE/DENNIS negative for endocarditis. Lumbar MRI (11/19/2019, 12/29/2027) are both negative for osteomyelitis, discitis, psoas muscle abscess. Day 6 IV antibiotics. Day 6 of IV nafcillin. Will need 4 weeks of IV antibiotics starting from last negative blood culture. Will need a PICC line if culture remains negative x48 hours. Continue IV antibiotics. Repeat blood culture. ID consulted. Recommendations noted. (2) Endocarditis Is this a current diagnosis for this admission?: Yes Plan: Ruled out. Afebrile. TTE/DENNIS negative for endocarditis. Suggested by #1 Evaluation and management as above. (3) Back pain Qualifiers: Back pain location: low back pain Back pain laterality: left Sciatica presence: without sciatica Is this a current diagnosis for this admission?: Yes Plan: MRI (11/19/19 and 12/28/29) show L4-S1 mild DDD No acute/concerning findings. Tizanidine and Flexeril no improvement. Response with Soma. Nonpharmacological interventions Continue Soma, as needed Toradol, encourage ambulation. (4) History of intravenous drug abuse Is this a current diagnosis for this admission?: Yes Plan: Supportive care Monitor for evidence of withdrawal. HIV negative Hepatitis positive for hepatitis C Outpatient GI referral for hep C treatment Discharge planning consulted (5) Anxiety and depression Is this a current diagnosis for this admission?: Yes Plan: Denies any suicidal or homicidal ideation.. Has history of chronic anxiety and depression. Takes BuSpar and Zoloft at home. Resume home meds. Outpatient PCP and psychiatry follow-up.
[2020-01-12] MEDS: SERTRALINE HCL 50 MG TABLET PO SCH (16:20)
[2020-01-12] MEDS: PHARMACY COMMUNICATION ORDER MC SCH (22:01)
[2020-01-12] MEDS: BUSPIRONE HCL 10 MG TABLET PO SCH (22:01)
[2020-01-12] MEDS: ZOLPIDEM TARTRATE 5 MG TABLET PO PRN (23:04)
[2020-01-13] MEDS: TRAMADOL HCL 50 MG TABLET PO PRN ×3 (00:27→18:37)
[2020-01-13] MEDS: NAFCILLIN SODIUM 2 GM in DEXTROSE 5%-WATER 100 ML IV SCH ×6 (03:08→21:14)
[2020-01-13] MEDS: KETOROLAC TROMETHAMINE INJ/PF 30 MG/1 ML SDV IV PRN ×2 (05:47→13:13)
[2020-01-13] MEDS: HEPARIN SOD (PORCINE) 5,000 UNIT/ML 1 ML VIAL SUBCUT SCH ×3 (05:54→21:13)
[2020-01-13] MEDS: BUSPIRONE HCL 10 MG TABLET PO SCH ×2 (09:39→21:13)
[2020-01-13] MEDS: LIDOCAINE 5% (700 MG) TRANSDERMAL ADH..PATCH TP SCH (09:40)
[2020-01-13] MEDS: DOCUSATE SODIUM 100 MG CAPSULE PO SCH ×2 (09:40→18:25)
[2020-01-13] MEDS: SERTRALINE HCL 50 MG TABLET PO SCH (09:41)
[2020-01-13] MEDS: CARISOPRODOL 350 MG TABLET PO SCH ×4 (09:41→21:13)
[2020-01-13] MEDS ORDERED: SERTRALINE HCL 50 MG TABLET PO SCH (10:00)
--- NOTE | 2020-01-13 10:05 | PDOC PROGRESS REPORT ---
Subjective Progress Note for:: 01/13/20 Subjective:: CHRIS LONDON is a 24 year old male with a past medical history of IV heroin drug abuse. He presents 7 days after an ER visit work-up for abdominal and back pain. He was summons to return to the emergency department for positive blood cultures with non-MRSA staph aureus. He is found to have hypotension, tachycardia, subjective fever, leukocytosis but an otherwise unremarkable work- up. He received Zosyn and referred to the hospitalist for admission. He denies previous history of endocarditis. 01/09/2020. No acute events overnight. Currently resting in bed. Complaining of persistent back pain otherwise denies any fever, chills, nausea, vomiting, diarrhea, constipation or any urinary symptoms. Having normal bowel and bladder movement. P.o. tolerant alert and oriented cooperative with physical examination. 01/10/2020. No acute events overnight. Complaining of back pain. Otherwise denies any fever, chills, nausea, vomiting, diarrhea, constipation or any urinary symptoms. Scheduled to have his DENNIS done today. 01/11/2020. No acute events overnight. Still complaining of back pain. Ambulatory, having normal bowel and bladder movement, denies any fever, chills, nausea, vomiting, diarrhea, constipation or any urinary symptoms. Unfortunately blood culture from 01/09/2020 is again positive for staph aureus. 01/12/2020. No acute events overnight. Reported mild improvement of his back pain, denies any fever, chills, nausea, vomiting, diarrhea, constipation or any urinary symptoms. Ambulatory. Would like to restart his Zoloft and BuSpar that he used to take before. 01/13/2020. No acute events overnight. Reporting improvement of his low back pain compared to yesterday, has been having good results with Soma, denies any fever, chills, nausea, vomiting, diarrhea, constipation or any urinary symptoms. Alert and oriented cooperative with physical examination, ambulatory and having normal bowel and bladder movements. Reason For Visit: IV DRUG ABUSE,STAPH AUREUS BACTEREMIA Physical Exam Vital Signs: Temp Pulse Resp BP Pulse Ox 97.6 F 75 16 143/80 H 99 01/13/20 08:00 01/13/20 08:00 01/13/20 08:00 01/13/20 08:00 01/13/20 08:00 Intake & Output 01/12/20 01/13/20 01/14/20 06:59 06:59 06:59 Intake Total 1644 1602 Output Total 400 Balance 1644 1202 Weight 97.3 kg 99.1 kg General appearance: PRESENT: no acute distress, well-developed, well-nourished Head exam: PRESENT: atraumatic, normocephalic Respiratory exam: PRESENT: clear to auscultation brandon. ABSENT: rales, rhonchi, wheezes Cardiovascular exam: PRESENT: RRR. ABSENT: diastolic murmur, rubs, systolic murmur GI/Abdominal exam: PRESENT: normal bowel sounds, soft. ABSENT: distended, guarding, mass, organolmegaly, rebound, tenderness Neurological exam: PRESENT: alert, awake, oriented to person, oriented to place, oriented to time, oriented to situation, CN II-XII grossly intact. ABSENT: motor sensory deficit Results Laboratory Results: 01/07/20 06:09 01/07/20 06:09 01/09/20 05:23 Blood Blood Culture (PCR) - Final Staphylococcus Aureus 01/09/20 04:26 Blood Blood Culture (PCR) - Final Staphylococcus Aureus Impressions: Abdomen/Pelvis CT 01/05/20 22:33 IMPRESSION: No acute findings. Normal appendix. TECHNICAL DOCUMENTATION: Quality ID # 436: Final reports with documentation of one or more dose reduction techniques (e.g., Automated exposure control, adjustment of the mA and/or kV according to patient size, use of iterative reconstruction technique) copyright 2011 [employer]- All Rights Reserved Chest X-Ray 01/05/20 23:28 IMPRESSION: No acute cardiopulmonary abnormality copyright 2011 [employer]- All Rights Reserved Assessment and Plan - Diagnosis (1) Bacteremia Is this a current diagnosis for this admission?: Yes Plan: History of heroin abuse. Most likely source skin. Blood culture positive for MSSA 12/29/2019. Blood culture positive for MSSA 01/05/2020. Blood culture positive for MSSA 01/09/2020. Given history of IV abuse concern for endocarditis. TTE/DENNIS negative for endocarditis. Lumbar MRI (11/19/2019, 12/29/2027) are both negative for osteomyelitis, discitis, psoas muscle abscess. Day 7 IV antibiotics. Day 7 of IV nafcillin. Will need 4 weeks of IV antibiotics starting from last negative blood culture. Blood cultures negative x48 hours. Will place PICC line tomorrow if blood cultures still negative. Continue IV antibiotics. Follow-up blood cultures. ID consulted. Recommendations noted. (2) Endocarditis Is this a current diagnosis for this admission?: Yes Plan: Ruled out. Afebrile. TTE/DENNIS negative for endocarditis. Suggested by #1 Evaluation and management as above. (3) Back pain Qualifiers: Back pain location: low back pain Back pain laterality: left Sciatica presence: without sciatica Is this a current diagnosis for this admission?: Yes Plan: Significant improvement with Soma. MRI (11/19/19 and 12/28/29) show L4-S1 mild DDD No acute/concerning findings. Tizanidine and Flexeril no improvement. Nonpharmacological interventions Continue Soma, as needed Toradol, encourage ambulation. (4) History of intravenous drug abuse Is this a current diagnosis for this admission?: Yes Plan: Supportive care Monitor for evidence of withdrawal. HIV negative Hepatitis positive for hepatitis C Outpatient GI referral for hep C treatment Discharge planning consulted (5) Anxiety and depression Is this a current diagnosis for this admission?: Yes Plan: Denies any suicidal or homicidal ideation.. Has history of chronic anxiety and depression. Takes BuSpar and Zoloft at home. Resume home meds. Outpatient PCP and psychiatry follow-up.
[2020-01-13] MEDS: ACETAMINOPHEN 325 MG TABLET PO PRN (21:13)
[2020-01-13] MEDS: PHARMACY COMMUNICATION ORDER MC SCH (23:17)
[2020-01-14] MEDS: KETOROLAC TROMETHAMINE INJ/PF 30 MG/1 ML SDV IV PRN ×3 (00:02→21:18)
[2020-01-14] MEDS: ZOLPIDEM TARTRATE 5 MG TABLET PO PRN ×2 (00:07→23:11)
[2020-01-14] MEDS: NAFCILLIN SODIUM 2 GM in DEXTROSE 5%-WATER 100 ML IV SCH ×6 (02:11→21:19)
[2020-01-14] MEDS: TRAMADOL HCL 50 MG TABLET PO PRN ×2 (04:39→13:27)
[2020-01-14] MEDS: HEPARIN SOD (PORCINE) 5,000 UNIT/ML 1 ML VIAL SUBCUT SCH ×3 (05:33→21:18)
[2020-01-14] MEDS: ACETAMINOPHEN 325 MG TABLET PO PRN ×2 (08:19→17:11)
[2020-01-14] MEDS: DOCUSATE SODIUM 100 MG CAPSULE PO SCH ×2 (09:21→17:07)
[2020-01-14] MEDS: LIDOCAINE 5% (700 MG) TRANSDERMAL ADH..PATCH TP SCH (09:23)
[2020-01-14] MEDS: BUSPIRONE HCL 10 MG TABLET PO SCH ×2 (09:24→21:18)
[2020-01-14] MEDS: SERTRALINE HCL 50 MG TABLET PO SCH (09:24)
[2020-01-14] MEDS: CARISOPRODOL 350 MG TABLET PO SCH ×4 (09:24→21:18)
--- NOTE | 2020-01-14 16:30 | RADIOLOGY REPORT (SQ) ---
EXAM DESCRIPTION: PICC INSERTION IMAGES COMPLETED DATE/TIME: 01/14/2020 4:17 pm REASON FOR STUDY: Needs intermediate IV abx COMPARISON: None. FLUOROSCOPY TIME: 01/06/2020 2 images saved to PACS. TECHNIQUE: Fluoroscopic and ultrasound guided PICC placement. LIMITATIONS: None. PROCEDURE: After written consent and assessment were obtained, the patient was brought into the fluo roscopy room and placed supine on the table. Ultrasound evaluation of potential access sites were per formed. After successfully identifying a patent right basilic vein, the right arm was prepped and dennis ped in a sterile fashion along with the ultrasound probe. The entry site was anesthetized with 1% lid ocaine. A 21 gauge 7 cm needle was advanced through the skin and into the basilic vein under live ult rasound guidance. Attempts at advancing the wire were met with resistance. The wire was removed and additional attempts at cannulating the brachial vein were performed in a similar fashion. Additiona l attempts at advancing the wire were met with difficulty. No additional location at the upper basil ic vein was selected. Under ultrasound guidance a 21 gauge needle was used to cannulate vein. A 018 wire was advanced to the level of the right atrium. The needle was then removed and an 11 blade sca lpel was used to make a 1cm skin incision. A 5 fr peel-away sheath was advanced over the wire and in to the venous system. A measurement was then made using the existing wire and live fluoroscopic ellen nce. The wire was then removed and trimmed. The PICC was advanced through the peel-away sheath and in to the venous system. The peel-away sheath was removed and the catheter was adhered to the patients a rm with a stat lock. The catheter was then aspirated and flushed and a sterile bandage was placed ove r the access site. A fluoroscopic spot image was saved to PACS confirming the catheter tip within th e cavoatrial junction. IMPRESSION: SUCCESSFUL PLACEMENT OF A 5 FR DUAL LUMEN 39 CM PICC IN THE RIGHT BRACHIAL VEIN. COMMENT: Patient medication list reviewed: Yes- Quality ID# 130:Eligible professional attests to doc umenting in the medical record they obtained, updated, or reviewed the patient's current medications. . Quality ID 145: Final reports for procedures using fluoroscopy that document radiation exposure lorenzo erick, or exposure time and number of fluorographic images (if radiation exposure indices are not avail able) Quality ID #76: The patient was prepped and draped using maximum sterile barrier technique including cap, mask, sterile gown, sterile gloves, a large sterile sheet, hand hygiene, and 2% Chlorhexidine fo r cutaneous antisepsis. When ultrasound is used, sterile ultrasound techniques are followed requiring sterile gel and sterile probes. TECHNICAL DOCUMENTATION: JOB ID: [id number] 2010 [employer]- All Rights Reserved rev-12/16 Reading location - IP/workstation name: [email or web address]
--- NOTE | 2020-01-14 17:32 | PDOC PROGRESS REPORT ---
Subjective Progress Note for:: 01/14/20 Subjective:: CHRIS LONDON is a 24 year old male with a past medical history of IV heroin drug abuse who was admitted for MSSA bacteremia. Patient was seen in morning rounds. He reports continued left lower back pain; overall improved. He denies recent fevers, chills, chest pain, palpitations, dyspnea, abd pain, nausea and vomiting. He has no other questions or concerns at this time. No concerns per nursing. Reason For Visit: IV DRUG ABUSE,ST[employer] BACTEREMIA Physical Exam Vital Signs: Temp Pulse Resp BP Pulse Ox 97.6 F 83 16 139/67 H 100 01/14/20 12:12 01/14/20 12:12 01/14/20 12:12 01/14/20 12:12 01/14/20 12:12 Intake & Output 01/13/20 01/14/20 01/15/20 06:59 06:59 06:59 Intake Total 1602 1840 947 Output Total 400 Balance 1202 1840 947 Weight 99.1 kg 98.5 kg General appearance: PRESENT: no acute distress, cooperative, well-developed, well-nourished Head exam: PRESENT: atraumatic, normocephalic Eye exam: PRESENT: conjunctiva pink, EOMI, PERRLA. ABSENT: scleral icterus Mouth exam: PRESENT: moist, tongue midline Respiratory exam: PRESENT: clear to auscultation brandon, symmetrical, unlabored. ABSENT: rales, rhonchi, wheezes Cardiovascular exam: PRESENT: RRR. ABSENT: diastolic murmur, rubs, systolic murmur Extremities exam: PRESENT: full ROM. ABSENT: calf tenderness, clubbing, pedal edema Musculoskeletal exam: PRESENT: ambulatory Neurological exam: PRESENT: alert, awake, oriented to person, oriented to place, oriented to time, oriented to situation, CN II-XII grossly intact. ABSENT: mot or sensory deficit Psychiatric exam: PRESENT: appropriate affect, normal mood. ABSENT: homicidal ideation, suicidal ideation Skin exam: PRESENT: dry, intact, warm. ABSENT: cyanosis, rash Results Laboratory Results: 01/07/20 06:09 01/07/20 06:09 Impressions: Abdomen/Pelvis CT 01/05/20 22:33 IMPRESSION: No acute findings. Normal appendix. TECHNICAL DOCUMENTATION: Quality ID # 436: Final reports with documentation of one or more dose reduction techniques (e.g., Automated exposure control, adjustment of the mA and/or kV according to patient size, use of iterative reconstruction technique) copyright 2010 [employer]- All Rights Reserved Chest X-Ray 01/05/20 23:28 IMPRESSION: No acute cardiopulmonary abnormality copyright 2010 [employer]- All Rights Reserved PICC Line Insertion 01/14/20 08:00 IMPRESSION: SUCCESSFUL PLACEMENT OF A 5 FR DUAL LUMEN 39 CM PICC IN THE RIGHT BRACHIAL VEIN. Assessment and Plan - Diagnosis (1) Bacteremia Is this a current diagnosis for this admission?: Yes Plan: History of heroin abuse. Most likely source skin. Blood culture positive for MSSA 12/29/2019. Blood culture positive for MSSA 01/05/2020. Blood culture positive for MSSA 01/09/2020. Blood culture NGTD 01/11/2020. TTE/DENNIS negative for endocarditis. Lumbar MRI (11/19/2019, 12/29/2027) are both negative for osteomyelitis, discitis, psoas muscle abscess. Will need 4 weeks of IV antibiotics starting from last negative blood culture. Continue IV Nafcillin; EOT 02/08/20 Now with PICC line in place. ID consulted. Recommendations noted. (2) Endocarditis Is this a current diagnosis for this admission?: No Plan: Ruled out. Afebrile. TTE/DENNIS negative for endocarditis. Evaluation and management as above. (3) History of intravenous drug abuse Is this a current diagnosis for this admission?: Yes Plan: Supportive care Monitor for evidence of withdrawal. HIV negative Hepatitis positive for hepatitis C Outpatient GI referral for hep C treatment Discharge planning consulted (4) Back pain Qualifiers: Back pain location: low back pain Back pain laterality: left Sciatica presence: without sciatica Is this a current diagnosis for this admission?: Yes Plan: Significant improvement with Soma. MRI (11/19/19 and 12/28/29) show L4-S1 mild DDD No acute/concerning findings. Tizanidine and Flexeril no improvement. Nonpharmacological interventions Continue Soma, as needed Toradol, encourage ambulation. (5) Difficulty sleeping Is this a current diagnosis for this admission?: Yes Plan: Ambien 5 mg nightly as needed (6) Anxiety and depression Is this a current diagnosis for this admission?: Yes Plan: Denies any suicidal or homicidal ideation. Has history of chronic anxiety and depression. Takes BuSpar and Zoloft at home. Resume home meds. Outpatient PCP and psychiatry follow-up. - Time Time Spent with patient: 15-24 minutes Medications reviewed and adjusted accordingly: Yes Anticipated discharge: Home Within: Other - 02/09/20
[2020-01-14] MEDS: NORMAL SALINE 10 ML SDV (SCHEDULED) IV SCH (21:30)
[2020-01-14] MEDS: PHARMACY COMMUNICATION ORDER MC SCH (21:31)
[2020-01-15] MEDS: NAFCILLIN SODIUM 2 GM in DEXTROSE 5%-WATER 100 ML IV SCH ×6 (02:16→21:26)
[2020-01-15] MEDS: KETOROLAC TROMETHAMINE INJ/PF 30 MG/1 ML SDV IV PRN ×3 (03:37→21:25)
[2020-01-15] MEDS: HEPARIN SOD (PORCINE) 5,000 UNIT/ML 1 ML VIAL SUBCUT SCH ×3 (06:08→21:33)
[2020-01-15] MEDS: DOCUSATE SODIUM 100 MG CAPSULE PO SCH ×2 (10:05→17:18)
[2020-01-15] MEDS: SERTRALINE HCL 50 MG TABLET PO SCH (10:05)
[2020-01-15] MEDS: CARISOPRODOL 350 MG TABLET PO SCH ×4 (10:05→21:26)
[2020-01-15] MEDS: BUSPIRONE HCL 10 MG TABLET PO SCH ×2 (10:05→21:26)
[2020-01-15] MEDS: LIDOCAINE 5% (700 MG) TRANSDERMAL ADH..PATCH TP SCH (10:06)
[2020-01-15] MEDS: NORMAL SALINE 10 ML SDV (SCHEDULED) IV SCH ×2 (10:19→21:53)
[2020-01-15] MEDS: TRAMADOL HCL 50 MG TABLET PO PRN (17:17)
--- NOTE | 2020-01-15 17:55 | PDOC PROGRESS REPORT ---
Subjective Progress Note for:: 01/15/20 Subjective:: CHRIS LONDON is a 24 year old male with a past medical history of IV heroin drug abuse who was admitted for MSSA bacteremia. Patient was seen in morning rounds. He reports continued left lower back pain; overall improved. Did not sleep well last night. He denies recent fevers, chills, chest pain, palpitations, dyspnea, abd pain, nausea and vomiting. He has no other questions or concerns at this time. No concerns per nursing. Reason For Visit: IV DRUG ABUSE,STAPH AUREUS BACTEREMIA Physical Exam Vital Signs: Temp Pulse Resp BP Pulse Ox 98.2 F 84 16 120/60 100 01/15/20 14:42 01/15/20 14:42 01/15/20 14:42 01/15/20 14:42 01/15/20 14:42 Intake & Output 01/14/20 01/15/20 01/16/20 06:59 06:59 06:59 Intake Total 1842037 1000 Balance 1842037 1000 Weight 98.5 kg 98 kg General appearance: PRESENT: no acute distress, cooperative, well-developed, well-nourished Head exam: PRESENT: atraumatic, normocephalic Eye exam: PRESENT: conjunctiva pink, EOMI, PERRLA. ABSENT: scleral icterus Mouth exam: PRESENT: moist, tongue midline Respiratory exam: PRESENT: clear to auscultation brandon, symmetrical, unlabored. ABSENT: rales, rhonchi, wheezes Cardiovascular exam: PRESENT: RRR. ABSENT: diastolic murmur, rubs, systolic murmur Vascular exam: PRESENT: normal capillary refill Extremities exam: PRESENT: full ROM. ABSENT: calf tenderness, clubbing, pedal edema Musculoskeletal exam: PRESENT: ambulatory Neurological exam: PRESENT: alert, awake, oriented to person, oriented to place, oriented to time, oriented to situation, CN II-XII grossly intact. ABSENT: motor sensory deficit Psychiatric exam: PRESENT: appropriate affect, normal mood. ABSENT: homicidal ideation, suicidal ideation Skin exam: PRESENT: dry, intact, warm. ABSENT: cyanosis, rash Results Laboratory Results: 01/07/20 06:09 01/07/20 06:09 Impressions: Abdomen/Pelvis CT 01/05/20 22:33 IMPRESSION: No acute findings. Normal appendix. TECHNICAL DOCUMENTATION: Quality ID # 436: Final reports with documentation of one or more dose reduction techniques (e.g., Automated exposure control, adjustment of the mA and/or kV according to patient size, use of iterative reconstruction technique) copyright 2010 [employer]- All Rights Reserved Chest X-Ray 01/05/20 23:28 IMPRESSION: No acute cardiopulmonary abnormality copyright 2010 [employer]- All Rights Reserved PICC Line Insertion 01/14/20 08:00 IMPRESSION: SUCCESSFUL PLACEMENT OF A 5 FR DUAL LUMEN 39 CM PICC IN THE RIGHT BRACHIAL VEIN. Assessment and Plan - Diagnosis (1) Bacteremia Is this a current diagnosis for this admission?: Yes Plan: History of heroin abuse. Most likely source skin. Blood culture positive for MSSA 12/29/2019. Blood culture positive for MSSA 01/05/2020. Blood culture positive for MSSA 01/09/2020. Blood culture NGTD 01/11/2020. TTE/DENNIS negative for endocarditis. Lumbar MRI (11/19/2019, 12/29/2027) are both negative for osteomyelitis, discitis, psoas muscle abscess. Will need 4 weeks of IV antibiotics starting from last negative blood culture. Continue IV Nafcillin; EOT 02/08/20 Now with PICC line in place. ID consulted. Recommendations noted. (2) Endocarditis Is this a current diagnosis for this admission?: No Plan: Ruled out. Afebrile. TTE/DENNIS negative for endocarditis. Evaluation and management as above. (3) History of intravenous drug abuse Is this a current diagnosis for this admission?: Yes Plan: Supportive care Monitor for evidence of withdrawal. HIV negative Hepatitis positive for hepatitis C Outpatient GI referral for hep C treatment Discharge planning consulted (4) Back pain Qualifiers: Back pain location: low back pain Back pain laterality: left Sciatica presence: without sciatica Is this a current diagnosis for this admission?: Yes Plan: Significant improvement with Soma. MRI (11/19/19 and 12/28/29) show L4-S1 mild DDD No acute/concerning findings. Tizanidine and Flexeril no improvement. Nonpharmacological interventions Continue Soma, as needed Toradol, encourage ambulation. (5) Difficulty sleeping Is this a current diagnosis for this admission?: Yes Plan: Ambien 5 mg nightly as needed (6) Anxiety and depression Is this a current diagnosis for this admission?: Yes Plan: Denies any suicidal or homicidal ideation. Has history of chronic anxiety and depression. Takes BuSpar and Zoloft at home. Resume home meds. Outpatient PCP and psychiatry follow-up. - Time Time Spent with patient: 15-24 minutes Medications reviewed and adjusted accordingly: Yes
[2020-01-15] MEDS: ACETAMINOPHEN 325 MG TABLET PO PRN (21:52)
[2020-01-15] MEDS: PHARMACY COMMUNICATION ORDER MC SCH (21:54)
[2020-01-15] MEDS: ZOLPIDEM TARTRATE 5 MG TABLET PO PRN (23:44)
[2020-01-16] MEDS: NAFCILLIN SODIUM 2 GM in DEXTROSE 5%-WATER 100 ML IV SCH ×6 (02:50→22:50)
[2020-01-16] MEDS: KETOROLAC TROMETHAMINE INJ/PF 30 MG/1 ML SDV IV PRN ×2 (03:31→18:20)
[2020-01-16] MEDS: HEPARIN SOD (PORCINE) 5,000 UNIT/ML 1 ML VIAL SUBCUT SCH ×3 (06:13→23:01)
[2020-01-16] MEDS: TRAMADOL HCL 50 MG TABLET PO PRN (07:35)
[2020-01-16] MEDS: SERTRALINE HCL 50 MG TABLET PO SCH (09:35)
[2020-01-16] MEDS: DOCUSATE SODIUM 100 MG CAPSULE PO SCH ×3 (09:35→17:28)
[2020-01-16] MEDS: BUSPIRONE HCL 10 MG TABLET PO SCH ×2 (09:35→22:48)
[2020-01-16] MEDS: CARISOPRODOL 350 MG TABLET PO SCH ×4 (09:35→22:48)
[2020-01-16] MEDS: LIDOCAINE 5% (700 MG) TRANSDERMAL ADH..PATCH TP SCH (09:36)
[2020-01-16] MEDS: NORMAL SALINE 10 ML SDV (SCHEDULED) IV SCH ×2 (09:44→22:49)
[2020-01-16] MEDS: OXYCODONE-ACETAMINOPHEN 5-325 MG TABLET PO PRN ×2 (12:02→20:22)
--- NOTE | 2020-01-16 18:36 | PDOC PROGRESS REPORT ---
Subjective Progress Note for:: 01/16/20 Subjective:: CHRIS LONDON is a 24 year old male with a past medical history of IV heroin drug abuse who was admitted for MSSA bacteremia. Patient was seen in morning rounds. He reports continued left lower back pain; worsened today. Did not sleep well last night. Asks to adjust pain medications again. Agreeable to pain management consultation; discussed that I was concerne d about starting on narcotic medications due to his history and certainty that he would not be provided an Rx for narcotics/controlled substances at discharge. Patient was understanding and agreeable with concerns. He denies recent fevers, chills, chest pain, palpitations, dyspnea, abd pain, nausea and vomiting. He has no other questions or concerns at this time. No concerns per nursing. Reason For Visit: IV DRUG ABUSE,STAPH AUREUS BACTEREMIA Physical Exam Vital Signs: Temp Pulse Resp BP Pulse Ox 98.3 F 89 16 136/75 H 100 01/16/20 15:23 01/16/20 15:23 01/16/20 15:23 01/16/20 15:23 01/16/20 15:23 Intake & Output 01/15/20 01/16/20 01/17/20 06:59 06:59 06:59 Intake Total 2037 1700 360 Balance 2037 1700 360 Weight 98 kg 98 kg General appearance: PRESENT: no acute distress, well-developed, well-nourished Head exam: PRESENT: atraumatic, normocephalic Eye exam: PRESENT: conjunctiva pink, EOMI, PERRLA. ABSENT: scleral icterus Mouth exam: PRESENT: moist, tongue midline Respiratory exam: PRESENT: clear to auscultation brandon, symmetrical, unlabored. ABSENT: rales, rhonchi, wheezes Cardiovascular exam: PRESENT: RRR, +S1, +S2. ABSENT: diastolic murmur, rubs, systolic murmur Vascular exam: PRESENT: normal capillary refill Extremities exam: PRESENT: full ROM. ABSENT: calf tenderness, clubbing, pedal edema Musculoskeletal exam: PRESENT: ambulatory Neurological exam: PRESENT: alert, awake, oriented to person, oriented to place, oriented to time, oriented to situation, CN II-XII grossly intact. ABSENT: motor sensory deficit Psychiatric exam: PRESENT: appropriate affect, normal mood. ABSENT: homicidal ideation, suicidal ideation Skin exam: PRESENT: dry, intact, warm. ABSENT: cyanosis, rash Results Laboratory Results: 01/07/20 06:09 01/07/20 06:09 01/11/20 09:44 Blood Blood Culture - Final NO GROWTH IN 5 DAYS 01/11/20 09:57 Blood Blood Culture - Final NO GROWTH IN 5 DAYS Impressions: Abdomen/Pelvis CT 01/05/20 22:33 IMPRESSION: No acute findings. Normal appendix. TECHNICAL DOCUMENTATION: Quality ID # 436: Final reports with documentation of one or more dose reduction techniques (e.g., Automated exposure control, adjustment of the mA and/or kV according to patient size, use of iterative reconstruction technique) copyright 2010 [employer]- All Rights Reserved Chest X-Ray 01/05/20 23:28 IMPRESSION: No acute cardiopulmonary abnormality copyright 2010 [employer]- All Rights Reserved PICC Line Insertion 01/14/20 08:00 IMPRESSION: SUCCESSFUL PLACEMENT OF A 5 FR DUAL LUMEN 39 CM PICC IN THE RIGHT BRACHIAL VEIN. Assessment and Plan - Diagnosis (1) Bacteremia Is this a current diagnosis for this admission?: Yes Plan: History of heroin abuse. Most likely source skin. Blood culture positive for MSSA 12/29/2019. Blood culture positive for MSSA 01/05/2020. Blood culture positive for MSSA 01/09/2020. Blood culture NGTD 01/11/2020. TTE/DENNIS negative for endocarditis. Lumbar MRI (11/19/2019, 12/29/2027) are both negative for osteomyelitis, discitis, psoas muscle abscess. Will need 4 weeks of IV antibiotics starting from last negative blood culture. Continue IV Nafcillin; EOT 02/08/20 Now with PICC line in place. ID consulted. Recommendations noted. (2) Endocarditis Is this a current diagnosis for this admission?: No Plan: Ruled out. Afebrile. TTE/DENNIS negative for endocarditis. Evaluation and management as above. (3) History of intravenous drug abuse Is this a current diagnosis for this admission?: Yes Plan: Supportive care Monitor for evidence of withdrawal. HIV negative Hepatitis positive for hepatitis C Outpatient GI referral for hep C treatment Discharge planning consulted (4) Back pain Qualifiers: Back pain location: low back pain Back pain laterality: left Sciatica presence: without sciatica Is this a current diagnosis for this admission?: Yes Plan: Significant improvement with Soma. MRI (11/19/19 and 12/28/29) show L4-S1 mild DDD No acute/concerning findings. Tizanidine and Flexeril no improvement. Nonpharmacological interventions Continue Soma Judicious percocet Encourage ambulation. Will request a Pain Management consultation (5) Difficulty sleeping Is this a current diagnosis for this admission?: Yes Plan: Ambien 5 mg nightly as needed (6) Anxiety and depression Is this a current diagnosis for this admission?: Yes Plan: Denies any suicidal or homicidal ideation. Has history of chronic anxiety and depression. Takes BuSpar and Zoloft at home. Resume home meds. Outpatient PCP and psychiatry follow-up. - Time Time Spent with patient: 25-34 minutes Medications reviewed and adjusted accordingly: Yes Anticipated discharge: Home
[2020-01-16] MEDS: PHARMACY COMMUNICATION ORDER MC SCH (22:59)
[2020-01-16] MEDS: ZOLPIDEM TARTRATE 5 MG TABLET PO PRN (23:53)
[2020-01-17] MEDS: NAFCILLIN SODIUM 2 GM in DEXTROSE 5%-WATER 100 ML IV SCH ×6 (02:01→22:48)
[2020-01-17] MEDS: KETOROLAC TROMETHAMINE INJ/PF 30 MG/1 ML SDV IV PRN ×2 (02:29→12:25)
[2020-01-17] MEDS: HEPARIN SOD (PORCINE) 5,000 UNIT/ML 1 ML VIAL SUBCUT SCH ×3 (05:22→22:51)
[2020-01-17] MEDS: ACETAMINOPHEN 325 MG TABLET PO PRN ×2 (05:23→18:31)
[2020-01-17] MEDS: OXYCODONE-ACETAMINOPHEN 5-325 MG TABLET PO PRN ×3 (06:25→22:41)
[2020-01-17 06:45] LABS: HEMATOCRIT 39.5 % (37.9-51.0); HEMOGLOBIN 13.3 g/dL (13.5-17.0); MEAN CORPUSCULAR HEMOGLOBIN 29.7 pg (27.0-33.4); MEAN CORPUSCULAR HGB CONC 33.6 g/dL (32.0-36.0); MEAN CORPUSCULAR VOLUME 89 fl (80-97); PLATELET COUNT 271 10^3/uL (150-450); RED BLOOD COUNT 4.46 10^6/uL (4.35-5.55); RED CELL DISTRIBUTION WIDTH 13.5 % (11.5-14.0)
[2020-01-17 07:19] LABS: ANION GAP 7 (5-19); BLOOD UREA NITROGEN 6 mg/dL (7-20); C-REACTIVE PROTEIN 17.7 mg/L (<10.0); CALCIUM 9.3 mg/dL (8.4-10.2); CARBON DIOXIDE 29 mmol/L (22-30); CHLORIDE 103 mmol/L (98-107); GLUCOSE 87 mg/dL (75-110); POTASSIUM 3.9 mmol/L (3.6-5.0)
[2020-01-17 07:27] LABS: ERYTHROCYTE SEDIMENTATION RATE 24 mm/hr (0-15)
[2020-01-17] MEDS: DOCUSATE SODIUM 100 MG CAPSULE PO SCH ×2 (09:48→17:29)
[2020-01-17] MEDS: SERTRALINE HCL 50 MG TABLET PO SCH (09:51)
[2020-01-17] MEDS: CARISOPRODOL 350 MG TABLET PO SCH ×4 (09:51→22:41)
[2020-01-17] MEDS: BUSPIRONE HCL 10 MG TABLET PO SCH ×2 (09:51→22:41)
[2020-01-17] MEDS: LIDOCAINE 5% (700 MG) TRANSDERMAL ADH..PATCH TP SCH ×2 (09:51→09:58)
[2020-01-17] MEDS: NORMAL SALINE 10 ML SDV (AFTER EACH USE) IV PRN (09:52)
[2020-01-17] MEDS: NORMAL SALINE 10 ML SDV (SCHEDULED) IV SCH ×2 (09:52→22:47)
--- NOTE | 2020-01-17 18:23 | PDOC PROGRESS REPORT ---
Subjective Progress Note for:: 01/17/20 Subjective:: CHRIS LONDON is a 24 year old male with a past medical history of IV heroin drug abuse who was admitted for MSSA bacteremia. Patient was seen on morning rounds. He was sleeping but woke easily when I said his name. He reports continued left lower back pain; unchanged from previous. He denies recent fevers, chills, chest pain, palpitations, dyspnea, abd pain, na usea and vomiting. He has no other questions or concerns at this time. Encouraged to ambulate in the halls. No concerns per nursing. Reason For Visit: IV DRUG ABUSE,STAPH AUREUS BACTEREMIA Physical Exam Vital Signs: Temp Pulse Resp BP Pulse Ox 97.5 F 75 16 123/61 100 01/17/20 10:58 01/17/20 10:58 01/17/20 10:58 01/17/20 10:58 01/17/20 10:58 Intake & Output 01/16/20 01/17/20 01/18/20 06:59 06:59 06:59 Intake Total 1700 1980 360 Balance 1700 1980 360 Weight 98 kg 98 kg General appearance: PRESENT: no acute distress, well-developed, well-nourished Head exam: PRESENT: atraumatic, normocephalic Eye exam: PRESENT: conjunctiva pink, EOMI, PERRLA. ABSENT: scleral icterus Mouth exam: PRESENT: moist, tongue midline Respiratory exam: PRESENT: clear to auscultation brandon, symmetrical, unlabored. ABSENT: rales, rhonchi, wheezes Cardiovascular exam: PRESENT: RRR, +S1, +S2. ABSENT: diastolic murmur, rubs, systolic murmur Pulses: PRESENT: normal dorsalis pedis pul Vascular exam: PRESENT: normal capillary refill Extremities exam: PRESENT: full ROM. ABSENT: calf tenderness, clubbing, pedal edema Musculoskeletal exam: PRESENT: ambulatory Neurological exam: PRESENT: alert, awake, oriented to person, oriented to place, oriented to time, oriented to situation, CN II-XII grossly intact. ABSENT: motor sensory deficit Psychiatric exam: PRESENT: appropriate affect, normal mood. ABSENT: homicidal ideation, suicidal ideation Skin exam: PRESENT: dry, intact, warm. ABSENT: cyanosis, rash Results Laboratory Results: 01/17/20 06:32 01/17/20 06:32 01/17/20 01/17/20 06:32 06:32 WBC 7.0 RBC 4.46 Hgb 13.3 L Hct 39.5 MCV 89 MCH 29.7 MCHC 33.6 RDW 13.5 Plt Count 271 Sodium 138.7 Potassium 3.9 Chloride 103 Carbon Dioxide 29 Anion Gap 7 BUN 6 L Creatinine 0.73 Est GFR ( Amer) > 60 Glucose 87 Calcium 9.3 C-Reactive Protein 17.7 H Impressions: Abdomen/Pelvis CT 01/05/20 22:33 IMPRESSION: No acute findings. Normal appendix. TECHNICAL DOCUMENTATION: Quality ID # 436: Final reports with documentation of one or more dose reduction techniques (e.g., Automated exposure control, adjustment of the mA and/or kV according to patient size, use of iterative reconstruction technique) copyright 2010 [employer]- All Rights Reserved Chest X-Ray 01/05/20 23:28 IMPRESSION: No acute cardiopulmonary abnormality copyright 2010 [employer]- All Rights Reserved PICC Line Insertion 01/14/20 08:00 IMPRESSION: SUCCESSFUL PLACEMENT OF A 5 FR DUAL LUMEN 39 CM PICC IN THE RIGHT BRACHIAL VEIN. Assessment and Plan - Diagnosis (1) Bacteremia Is this a current diagnosis for this admission?: Yes Plan: History of heroin abuse. Most likely source skin. Blood culture positive for MSSA 12/29/2019. Blood culture positive for MSSA 01/05/2020. Blood culture positive for MSSA 01/09/2020. Blood culture NGTD 01/11/2020. TTE/DENNIS negative for endocarditis. Lumbar MRI (11/19/2019, 12/29/2027) are both negative for osteomyelitis, discitis, psoas muscle abscess. Will need 4 weeks of IV antibiotics starting from last negative blood culture. Continue IV Nafcillin; EOT 02/08/20 Now with PICC line in place. ID consulted. Recommendations noted. (2) Endocarditis Is this a current diagnosis for this admission?: No Plan: Ruled out. Afebrile. TTE/DENNIS negative for endocarditis. Evaluation and management as above. (3) History of intravenous drug abuse Is this a current diagnosis for this admission?: Yes Plan: Supportive care Monitor for evidence of withdrawal. HIV negative Hepatitis positive for hepatitis C Outpatient GI referral for hep C treatment Discharge planning consulted (4) Back pain Qualifiers: Back pain location: low back pain Back pain laterality: left Sciatica presence: without sciatica Is this a current diagnosis for this admission?: Yes Plan: Significant improvement with Soma. MRI (11/19/19 and 12/28/29) show L4-S1 mild DDD No acute/concerning findings. Tizanidine and Flexeril no improvement. Nonpharmacological interventions Continue Soma Judicious percocet Encourage ambulation. Will request a Pain Management consultation (5) Difficulty sleeping Is this a current diagnosis for this admission?: Yes Plan: Ambien 5 mg nightly as needed (6) Anxiety and depression Is this a current diagnosis for this admission?: Yes Plan: Denies any suicidal or homicidal ideation. Has history of chronic anxiety and depression. Takes BuSpar and Zoloft at home. Resume home meds. Outpatient PCP and psychiatry follow-up. - Time Time Spent with patient: 15-24 minutes Medications reviewed and adjusted accordingly: Yes Anticipated discharge: Home
[2020-01-17] MEDS: PHARMACY COMMUNICATION ORDER MC SCH (22:43)
[2020-01-18] MEDS: ZOLPIDEM TARTRATE 5 MG TABLET PO PRN (00:26)
[2020-01-18] MEDS: KETOROLAC TROMETHAMINE INJ/PF 30 MG/1 ML SDV IV PRN ×2 (01:21→10:33)
[2020-01-18] MEDS: NAFCILLIN SODIUM 2 GM in DEXTROSE 5%-WATER 100 ML IV SCH ×6 (01:21→22:42)
[2020-01-18] MEDS: HEPARIN SOD (PORCINE) 5,000 UNIT/ML 1 ML VIAL SUBCUT SCH ×3 (05:29→22:41)
[2020-01-18] MEDS: OXYCODONE-ACETAMINOPHEN 5-325 MG TABLET PO PRN ×3 (06:48→22:48)
[2020-01-18] MEDS: LIDOCAINE 5% (700 MG) TRANSDERMAL ADH..PATCH TP SCH (10:19)
[2020-01-18] MEDS: DOCUSATE SODIUM 100 MG CAPSULE PO SCH ×2 (10:19→17:22)
[2020-01-18] MEDS: BUSPIRONE HCL 10 MG TABLET PO SCH ×2 (10:22→22:40)
[2020-01-18] MEDS: CARISOPRODOL 350 MG TABLET PO SCH ×4 (10:22→22:40)
[2020-01-18] MEDS: SERTRALINE HCL 50 MG TABLET PO SCH (10:23)
[2020-01-18] MEDS: NORMAL SALINE 10 ML SDV (SCHEDULED) IV SCH ×2 (10:23→22:42)
--- NOTE | 2020-01-18 14:22 | PDOC PROGRESS REPORT ---
Subjective Progress Note for:: 01/18/20 Subjective:: CHRIS LONDON is a 24 year old male with a past medical history of IV heroin drug abuse who was admitted for MSSA bacteremia. Patient was seen on morning rounds. He was sleeping but woke easily when I said his name. He reports continued left lower back pain; unchanged from previous. Discussed recommendations by pain management to change to Subutex; patient declines. He denies recent fevers, chills, chest pain, palpitations, dyspnea, abd pain, nausea and vomiting. He has no other questions or concerns at this time. Encouraged to ambulate in the halls. No concerns per nursing. Reason For Visit: IV DRUG ABUSE,STAPH AUREUS BACTEREMIA Physical Exam Vital Signs: Temp Pulse Resp BP Pulse Ox 97.9 F 67 16 108/53 L 100 01/18/20 11:40 01/18/20 11:40 01/18/20 11:40 01/18/20 11:40 01/18/20 11:40 Intake & Output 01/17/20 01/18/20 01/19/20 06:59 06:59 06:59 Intake Total 1979 2260 160 Balance 1979 2260 160 Weight 98 kg 97.3 kg General appearance: PRESENT: no acute distress, well-developed, well-nourished Head exam: PRESENT: atraumatic, normocephalic Eye exam: PRESENT: conjunctiva pink, EOMI, PERRLA. ABSENT: scleral icterus Mouth exam: PRESENT: moist, tongue midline Respiratory exam: PRESENT: clear to auscultation brandon. ABSENT: rales, rhonchi, wheezes Cardiovascular exam: PRESENT: RRR. ABSENT: diastolic murmur, rubs, systolic murmur Extremities exam: PRESENT: full ROM. ABSENT: calf tenderness, clubbing, pedal edema Musculoskeletal exam: PRESENT: ambulatory Neurological exam: PRESENT: alert, awake, oriented to person, oriented to place, oriented to time, oriented to situation, CN II-XII grossly intact. ABSENT: motor sensory deficit Psychiatric exam: PRESENT: appropriate affect, normal mood. ABSENT: homicidal ideation, suicidal ideation Skin exam: PRESENT: dry, intact, warm. ABSENT: cyanosis, rash Results Laboratory Results: 01/17/20 06:32 01/17/20 06:32 Impressions: Abdomen/Pelvis CT 01/05/20 22:33 IMPRESSION: No acute findings. Normal appendix. TECHNICAL DOCUMENTATION: Quality ID # 436: Final reports with documentation of one or more dose reduction techniques (e.g., Automated exposure control, adjustment of the mA and/or kV according to patient size, use of iterative reconstruction technique) copyright 2010 [employer]- All Rights Reserved Chest X-Ray 01/05/20 23:28 IMPRESSION: No acute cardiopulmonary abnormality copyright 2010 [employer]- All Rights Reserved PICC Line Insertion 01/14/20 08:00 IMPRESSION: SUCCESSFUL PLACEMENT OF A 5 FR DUAL LUMEN 39 CM PICC IN THE RIGHT BRACHIAL VEIN. Assessment and Plan - Diagnosis (1) Bacteremia Is this a current diagnosis for this admission?: Yes Plan: History of heroin abuse. Most likely source skin. Blood culture positive for MSSA 12/29/2019. Blood culture positive for MSSA 01/05/2020. Blood culture positive for MSSA 01/09/2020. Blood culture NGTD 01/11/2020. TTE/DENNIS negative for endocarditis. Lumbar MRI (11/19/2019, 12/29/2027) are both negative for osteomyelitis, discitis, psoas muscle abscess. Will need 4 weeks of IV antibiotics starting from last negative blood culture. Continue IV Nafcillin; EOT 02/08/20 Now with PICC line in place. ID consulted. Recommendations noted. (2) Endocarditis Is this a current diagnosis for this admission?: No Plan: Ruled out. Afebrile. TTE/DENNIS negative for endocarditis. Evaluation and management as above. (3) History of intravenous drug abuse Is this a current diagnosis for this admission?: Yes Plan: Supportive care Monitor for evidence of withdrawal. HIV negative Hepatitis positive for hepatitis C Outpatient GI referral for hep C treatment Discharge planning consulted (4) Back pain Qualifiers: Back pain location: low back pain Back pain laterality: left Sciatica presence: without sciatica Is this a current diagnosis for this admission?: Yes Plan: Significant improvement with Soma. MRI (11/19/19 and 12/28/29) show L4-S1 mild DDD No acute/concerning findings. Tizanidine and Flexeril no improvement. Nonpharmacological interventions Continue Soma Judicious percocet Encourage ambulation. Will request a Pain Management consultation; consider change to Subutex per their recommendations. (5) Difficulty sleeping Is this a current diagnosis for this admission?: Yes Plan: Ambien 5 mg nightly as needed (6) Anxiety and depression Is this a current diagnosis for this admission?: Yes Plan: Denies any suicidal or homicidal ideation. Has history of chronic anxiety and depression. Takes BuSpar and Zoloft at home. Resume home meds. Outpatient PCP and psychiatry follow-up. - Time Time Spent with patient: 15-24 minutes Medications reviewed and adjusted accordingly: Yes Anticipated discharge: Home
[2020-01-18] MEDS: PHARMACY COMMUNICATION ORDER MC SCH (22:41)
[2020-01-19] MEDS: NAFCILLIN SODIUM 2 GM in DEXTROSE 5%-WATER 100 ML IV SCH ×6 (02:30→21:35)
[2020-01-19] MEDS: ZOLPIDEM TARTRATE 5 MG TABLET PO PRN ×2 (03:11→23:42)
[2020-01-19] MEDS: HEPARIN SOD (PORCINE) 5,000 UNIT/ML 1 ML VIAL SUBCUT SCH ×3 (05:08→21:37)
[2020-01-19] MEDS: KETOROLAC TROMETHAMINE INJ/PF 30 MG/1 ML SDV IV PRN ×2 (05:15→20:25)
[2020-01-19] MEDS: OXYCODONE-ACETAMINOPHEN 5-325 MG TABLET PO PRN ×3 (07:38→23:42)
[2020-01-19] MEDS: DOCUSATE SODIUM 100 MG CAPSULE PO SCH ×2 (10:23→17:24)
[2020-01-19] MEDS: LIDOCAINE 5% (700 MG) TRANSDERMAL ADH..PATCH TP SCH (10:23)
[2020-01-19] MEDS: BUSPIRONE HCL 10 MG TABLET PO SCH ×2 (10:30→21:35)
[2020-01-19] MEDS: CARISOPRODOL 350 MG TABLET PO SCH ×4 (10:30→21:35)
[2020-01-19] MEDS: NORMAL SALINE 10 ML SDV (SCHEDULED) IV SCH ×2 (10:31→21:36)
[2020-01-19] MEDS: SERTRALINE HCL 50 MG TABLET PO SCH (10:31)
--- NOTE | 2020-01-19 14:51 | PDOC PROGRESS REPORT ---
Subjective Progress Note for:: 01/19/20 Subjective:: CHRIS LONDON is a 24 year old male with a past medical history of IV heroin drug abuse who was admitted for MSSA bacteremia. Patient was seen on morning rounds. He was sleeping but woke easily when I said his name. He reports continued left lower back pain; unchanged from previous. Reports current regimen is working well. He denies recent fevers, chills, chest pain, palpitations, dyspnea, abd pain, nausea and vomiting. He has no other questions or concerns at this time. Encouraged to ambulate in the halls. No concerns per nursing. Reason For Visit: IV DRUG ABUSE,STAPH AUREUS BACTEREMIA Physical Exam Vital Signs: Temp Pulse Resp BP Pulse Ox 98.3 F 81 18 121/67 100 01/19/20 11:58 01/19/20 11:58 01/19/20 11:58 01/19/20 11:58 01/19/20 11:58 Intake & Output 01/18/20 01/19/20 01/20/20 06:59 06:59 06:59 Intake Total 2260 1390 Balance 2260 1390 Weight 97.3 kg 97.3 kg General appearance: PRESENT: no acute distress, well-developed, well-nourished Head exam: PRESENT: atraumatic, normocephalic Eye exam: PRESENT: conjunctiva pink, EOMI, PERRLA. ABSENT: scleral icterus Mouth exam: PRESENT: moist, tongue midline Respiratory exam: PRESENT: clear to auscultation brandon, symmetrical, unlabored. ABSENT: rales, rhonchi, wheezes Cardiovascular exam: PRESENT: RRR. ABSENT: diastolic murmur, rubs, systolic murmur Extremities exam: PRESENT: full ROM. ABSENT: calf tenderness, clubbing, pedal edema Musculoskeletal exam: PRESENT: ambulatory Neurological exam: PRESENT: alert, awake, oriented to person, oriented to place, oriented to time, oriented to situation, CN II-XII grossly intact. ABSENT: mo tor sensory deficit Psychiatric exam: PRESENT: appropriate affect, normal mood. ABSENT: homicidal ideation, suicidal ideation Skin exam: PRESENT: dry, intact, warm. ABSENT: cyanosis, rash Results Laboratory Results: 01/17/20 06:32 01/17/20 06:32 Impressions: Abdomen/Pelvis CT 01/05/20 22:33 IMPRESSION: No acute findings. Normal appendix. TECHNICAL DOCUMENTATION: Quality ID # 436: Final reports with documentation of one or more dose reduction techniques (e.g., Automated exposure control, adjustment of the mA and/or kV according to patient size, use of iterative reconstruction technique) copyright 2010 [employer]- All Rights Reserved Chest X-Ray 01/05/20 23:28 IMPRESSION: No acute cardiopulmonary abnormality copyright 2010 [employer]- All Rights Reserved PICC Line Insertion 01/14/20 08:00 IMPRESSION: SUCCESSFUL PLACEMENT OF A 5 FR DUAL LUMEN 39 CM PICC IN THE RIGHT BRACHIAL VEIN. Assessment and Plan - Diagnosis (1) Bacteremia Is this a current diagnosis for this admission?: Yes Plan: History of heroin abuse. Most likely source skin. Blood culture positive for MSSA 12/29/2019. Blood culture positive for MSSA 01/05/2020. Blood culture positive for MSSA 01/09/2020. Blood culture NGTD 01/11/2020. TTE/DENNIS negative for endocarditis. Lumbar MRI (11/19/2019, 12/29/2027) are both negative for osteomyelitis, discitis, psoas muscle abscess. Will need 4 weeks of IV antibiotics starting from last negative blood culture. Continue IV Nafcillin; EOT 02/08/20 Now with PICC line in place. ID consulted. Recommendations noted. (2) Endocarditis Is this a current diagnosis for this admission?: No Plan: Ruled out. Afebrile. TTE/DENNIS negative for endocarditis. Evaluation and management as above. (3) History of intravenous drug abuse Is this a current diagnosis for this admission?: Yes Plan: Supportive care Monitor for evidence of withdrawal. HIV negative Hepatitis positive for hepatitis C Outpatient GI referral for hep C treatment Discharge planning consulted (4) Back pain Qualifiers: Back pain location: low back pain Back pain laterality: left Sciatica presence: without sciatica Is this a current diagnosis for this admission?: Yes Plan: Significant improvement with Soma. MRI (11/19/19 and 12/28/29) show L4-S1 mild DDD No acute/concerning findings. Tizanidine and Flexeril no improvement. Nonpharmacological interventions Continue Soma Judicious percocet Encourage ambulation. Will request a Pain Management consultation; consider change to Subutex per their recommendations. (5) Difficulty sleeping Is this a current diagnosis for this admission?: Yes Plan: Ambien 5 mg nightly as needed (6) Anxiety and depression Is this a current diagnosis for this admission?: Yes Plan: Denies any suicidal or homicidal ideation. Has history of chronic anxiety and depression. Takes BuSpar and Zoloft at home. Encouraged ambulation in the hallways. Outpatient PCP and psychiatry follow-up. - Time Time Spent with patient: Less than 15 minutes Medications reviewed and adjusted accordingly: Yes Anticipated discharge: Home
[2020-01-19] MEDS: ACETAMINOPHEN 325 MG TABLET PO PRN (20:05)
[2020-01-19] MEDS: PHARMACY COMMUNICATION ORDER MC SCH (21:38)
[2020-01-20] MEDS: NAFCILLIN SODIUM 2 GM in DEXTROSE 5%-WATER 100 ML IV SCH ×5 (02:49→23:36)
[2020-01-20] MEDS: HEPARIN SOD (PORCINE) 5,000 UNIT/ML 1 ML VIAL SUBCUT SCH ×3 (05:34→23:02)
[2020-01-20] MEDS: KETOROLAC TROMETHAMINE INJ/PF 30 MG/1 ML SDV IV PRN (05:49)
[2020-01-20] MEDS: OXYCODONE-ACETAMINOPHEN 5-325 MG TABLET PO PRN ×3 (07:45→23:36)
[2020-01-20] MEDS: CARISOPRODOL 350 MG TABLET PO SCH ×4 (10:43→23:00)
[2020-01-20] MEDS: SERTRALINE HCL 50 MG TABLET PO SCH (10:43)
[2020-01-20] MEDS: LIDOCAINE 5% (700 MG) TRANSDERMAL ADH..PATCH TP SCH (10:43)
--- NOTE | 2020-01-20 10:47 | PDOC PROGRESS REPORT ---
Subjective Progress Note for:: 01/20/20 Subjective:: CHRIS LONDON is a 24 year old male with a past medical history of IV heroin drug abuse who was admitted for MSSA bacteremia. Patient was seen on morning rounds. He was sleeping but woke easily when I said his name. He reports continued left lower back pain; though notes that is is improved and well controlled by current medication regimen. He denies recent fevers, chills, chest pain, palpitations, dyspnea, abd pain, nausea and vomiting. He has no other questions or concerns at this time. Encouraged to ambulate in the halls. No concerns per nursing. Reason For Visit: IV DRUG ABUSE,STAPH AUREUS BACTEREMIA Physical Exam Vital Signs: Temp Pulse Resp BP Pulse Ox 97.4 F 69 12 110/77 99 01/20/20 07:27 01/20/20 07:27 01/20/20 07:27 01/20/20 07:27 01/20/20 07:27 Intake & Output 01/19/20 01/20/20 01/21/20 06:59 06:59 06:59 Intake Total 1390 1230 Balance 1390 1230 Weight 97.3 kg 97.3 kg General appearance: PRESENT: no acute distress, cooperative, well-developed, well-nourished Head exam: PRESENT: atraumatic, normocephalic Eye exam: PRESENT: conjunctiva pink, EOMI, PERRLA. ABSENT: scleral icterus Ear exam: PRESENT: normal external ear exam Mouth exam: PRESENT: moist, tongue midline Respiratory exam: PRESENT: clear to auscultation brandon, symmetrical, unlabored. ABSENT: rales, rhonchi, wheezes Cardiovascular exam: PRESENT: RRR, +S1, +S2. ABSENT: diastolic murmur, rubs, systolic murmur Extremities exam: PRESENT: full ROM. ABSENT: calf tenderness, clubbing, pedal edema Musculoskeletal exam: PRESENT: ambulatory Neurological exam: PRESENT: alert, awake, oriented to person, oriented to place, oriented to time, oriented to situation, CN II-XII grossly intact. ABSENT: motor sensory deficit Psychiatric exam: PRESENT: appropriate affect, normal mood. ABSENT: homicidal ideation, suicidal ideation Skin exam: PRESENT: dry, intact, warm. ABSENT: cyanosis, rash Results Laboratory Results: 01/17/20 06:32 01/17/20 06:32 Impressions: Abdomen/Pelvis CT 01/05/20 22:33 IMPRESSION: No acute findings. Normal appendix. TECHNICAL DOCUMENTATION: Quality ID # 436: Final reports with documentation of one or more dose reduction techniques (e.g., Automated exposure control, adjustment of the mA and/or kV according to patient size, use of iterative reconstruction technique) copyright 2010 [employer]- All Rights Reserved Chest X-Ray 01/05/20 23:28 IMPRESSION: No acute cardiopulmonary abnormality copyright 2010 [employer]- All Rights Reserved PICC Line Insertion 01/14/20 08:00 IMPRESSION: SUCCESSFUL PLACEMENT OF A 5 FR DUAL LUMEN 39 CM PICC IN THE RIGHT BRACHIAL VEIN. Assessment and Plan - Diagnosis (1) Bacteremia Is this a current diagnosis for this admission?: Yes Plan: History of heroin abuse. Most likely source skin. Blood culture positive for MSSA 12/29/2019. Blood culture positive for MSSA 01/05/2020. Blood culture positive for MSSA 01/09/2020. Blood culture NGTD 01/11/2020. TTE/DENNIS negative for endocarditis. Lumbar MRI (11/19/2019, 12/29/2027) are both negative for osteomyelitis, discitis, psoas muscle abscess. Will need 4 weeks of IV antibiotics starting from last negative blood culture. Continue IV Nafcillin; EOT 02/08/20 Now with PICC line in place. ID consulted. Recommendations noted. (2) Endocarditis Is this a current diagnosis for this admission?: No Plan: Ruled out. Afebrile. TTE/DENNIS negative for endocarditis. Evaluation and management as above. (3) History of intravenous drug abuse Is this a current diagnosis for this admission?: Yes Plan: Supportive care Monitor for evidence of withdrawal. HIV negative Hepatitis positive for hepatitis C Outpatient GI referral for hep C treatment Discharge planning consulted (4) Back pain Qualifiers: Back pain location: low back pain Back pain laterality: left Sciatica presence: without sciatica Is this a current diagnosis for this admission?: Yes Plan: Significant improvement with Soma. MRI (11/19/19 and 12/28/29) show L4-S1 mild DDD No acute/concerning findings. Tizanidine and Flexeril no improvement. Nonpharmacological interventions Continue Soma Motrin prn Lidoderm patches Judicious percocet Encourage ambulation. Requested Pain Management consultation; consider change to Subutex per their recommendations. Patient declines. (5) Difficulty sleeping Is this a current diagnosis for this admission?: Yes Plan: Ambien 5 mg nightly as needed (6) Anxiety and depression Is this a current diagnosis for this admission?: Yes Plan: Denies any suicidal or homicidal ideation. Has history of chronic anxiety and depression. Takes BuSpar and Zoloft at home. Encouraged ambulation in the hallways. Outpatient PCP and psychiatry follow-up. - Time Time Spent with patient: 15-24 minutes Medications reviewed and adjusted accordingly: Yes Anticipated discharge: Home
[2020-01-20] MEDS: NORMAL SALINE 10 ML SDV (SCHEDULED) IV SCH ×2 (10:48→23:00)
[2020-01-20] MEDS: NORMAL SALINE 10 ML SDV (AFTER EACH USE) IV PRN (10:48)
[2020-01-20] MEDS: BUSPIRONE HCL 10 MG TABLET PO SCH ×2 (10:49→23:00)
[2020-01-20] MEDS: DOCUSATE SODIUM 100 MG CAPSULE PO SCH ×2 (10:51→17:01)
[2020-01-20] MEDS ORDERED: NAFCILLIN SODIUM 2 GM in DEXTROSE 5%-WATER 100 ML IV ONE (11:30)
[2020-01-20] MEDS ORDERED: NAFCILLIN SODIUM 2 GM in DEXTROSE 5%-WATER 100 ML IV SCH (14:00)
[2020-01-20] MEDS: IBUPROFEN 600 MG TABLET PO PRN (19:44)
[2020-01-20] MEDS: PHARMACY COMMUNICATION ORDER MC SCH (23:04)
[2020-01-20] MEDS: ZOLPIDEM TARTRATE 5 MG TABLET PO PRN (23:36)
[2020-01-21] MEDS: HEPARIN SOD (PORCINE) 5,000 UNIT/ML 1 ML VIAL SUBCUT SCH ×3 (05:08→21:40)
[2020-01-21] MEDS: NAFCILLIN SODIUM 2 GM in DEXTROSE 5%-WATER 100 ML IV SCH ×6 (05:09→23:54)
[2020-01-21] MEDS: OXYCODONE-ACETAMINOPHEN 5-325 MG TABLET PO PRN ×3 (07:48→23:49)
[2020-01-21] MEDS: DOCUSATE SODIUM 100 MG CAPSULE PO SCH ×2 (10:14→17:00)
[2020-01-21] MEDS: NORMAL SALINE 10 ML SDV (SCHEDULED) IV SCH ×2 (10:15→21:39)
[2020-01-21] MEDS: SERTRALINE HCL 50 MG TABLET PO SCH (10:15)
[2020-01-21] MEDS: BUSPIRONE HCL 10 MG TABLET PO SCH ×2 (10:15→21:32)
[2020-01-21] MEDS: LIDOCAINE 5% (700 MG) TRANSDERMAL ADH..PATCH TP SCH (10:15)
[2020-01-21] MEDS: CARISOPRODOL 350 MG TABLET PO SCH ×4 (10:15→21:32)
[2020-01-21] MEDS: NORMAL SALINE 10 ML SDV (AFTER EACH USE) IV PRN (10:16)
--- NOTE | 2020-01-21 12:19 | PDOC PROGRESS REPORT ---
Subjective Progress Note for:: 01/21/20 Subjective:: CHRIS LONDON is a 24 year old male with a past medical history of IV heroin drug abuse who was admitted for MSSA bacteremia. Patient was seen on morning rounds. He was awake, resting in bed comfortably on room air. He has no questions or concerns today; appears to be in good spirits. Back pain is adequately controlled. He denies recent fevers, chills, chest pain, palpitations, dyspnea, abd pain, nausea and vomiting. He has no other questions or concerns at this time. Encouraged to ambulate in the halls. No concerns per nursing. Reason For Visit: IV DRUG ABUSE,STAPH AUREUS BACTEREMIA Physical Exam Vital Signs: Temp Pulse Resp BP Pulse Ox 97.7 F 74 12 122/78 100 01/21/20 07:53 01/21/20 07:53 01/21/20 07:53 01/21/20 07:53 01/21/20 07:53 Intake & Output 01/20/20 01/21/20 01/22/20 06:59 06:59 06:59 Intake Total 1230 3244 Balance 1230 3244 Weight 97.3 kg 97.3 kg General appearance: PRESENT: no acute distress, well-developed, well-nourished Head exam: PRESENT: atraumatic, normocephalic Eye exam: PRESENT: conjunctiva pink, EOMI, PERRLA. ABSENT: scleral icterus Mouth exam: PRESENT: moist, tongue midline Respiratory exam: PRESENT: clear to auscultation brandon, symmetrical, unlabored. ABSENT: rales, rhonchi, wheezes Cardiovascular exam: PRESENT: RRR, +S1, +S2. ABSENT: diastolic murmur, rubs, systolic murmur Vascular exam: PRESENT: normal capillary refill Extremities exam: PRESENT: full ROM. ABSENT: calf tenderness, clubbing, pedal edema Musculoskeletal exam: PRESENT: ambulatory Neurological exam: PRESENT: alert, awake, oriented to person, oriented to place, oriented to time, oriented to situation, CN II-XII grossly intact. ABSENT: motor sensory deficit Psychiatric exam: PRESENT: appropriate affect, normal mood. ABSENT: homicidal ideation, suicidal ideation Skin exam: PRESENT: dry, intact, warm. ABSENT: cyanosis, rash Results Laboratory Results: 01/17/20 06:32 01/17/20 06:32 Impressions: Abdomen/Pelvis CT 01/05/20 22:33 IMPRESSION: No acute findings. Normal appendix. TECHNICAL DOCUMENTATION: Quality ID # 436: Final reports with documentation of one or more dose reduction techniques (e.g., Automated exposure control, adjustment of the mA and/or kV according to patient size, use of iterative reconstruction technique) copyright 2010 [employer]- All Rights Reserved Chest X-Ray 01/05/20 23:28 IMPRESSION: No acute cardiopulmonary abnormality copyright 2010 [employer]- All Rights Reserved PICC Line Insertion 01/14/20 08:00 IMPRESSION: SUCCESSFUL PLACEMENT OF A 5 FR DUAL LUMEN 39 CM PICC IN THE RIGHT BRACHIAL VEIN. Assessment and Plan - Diagnosis (1) Bacteremia Is this a current diagnosis for this admission?: Yes Plan: History of heroin abuse. Most likely source skin. Blood culture positive for MSSA 12/29/2019. Blood culture positive for MSSA 01/05/2020. Blood culture positive for MSSA 01/09/2020. Blood culture NGTD 01/11/2020. TTE/DENNIS negative for endocarditis. Lumbar MRI (11/19/2019, 12/29/2027) are both negative for osteomyelitis, discitis, psoas muscle abscess. Will need 4 weeks of IV antibiotics starting from last negative blood culture. Continue IV Nafcillin; EOT 02/08/20 Now with PICC line in place. ID consulted. Recommendations noted. (2) Endocarditis Is this a current diagnosis for this admission?: No Plan: Ruled out. Afebrile. TTE/DENNIS negative for endocarditis. Evaluation and management as above. (3) History of intravenous drug abuse Is this a current diagnosis for this admission?: Yes Plan: Supportive care Monitor for evidence of withdrawal. HIV negative Hepatitis positive for hepatitis C Outpatient GI referral for hep C treatment Discharge planning consulted (4) Back pain Qualifiers: Back pain location: low back pain Back pain laterality: left Sciatica presence: without sciatica Is this a current diagnosis for this admission?: Yes Plan: Significant improvement with Soma. MRI (11/19/19 and 12/28/29) show L4-S1 mild DDD No acute/concerning findings. Tizanidine and Flexeril no improvement. Nonpharmacological interventions Continue Soma Motrin prn Lidoderm patches Judicious percocet Encourage ambulation. Requested Pain Management consultation; consider change to Subutex per their recommendations. Patient declines. (5) Difficulty sleeping Is this a current diagnosis for this admission?: Yes Plan: Ambien 5 mg nightly as needed (6) Anxiety and depression Is this a current diagnosis for this admission?: Yes Plan: Denies any suicidal or homicidal ideation. Has history of chronic anxiety and depression. Takes BuSpar and Zoloft at home. Encouraged ambulation in the hallways. Outpatient PCP and psychiatry follow-up. - Time Time Spent with patient: Less than 15 minutes Medications reviewed and adjusted accordingly: Yes Anticipated discharge: Home
[2020-01-21] MEDS: ACETAMINOPHEN 325 MG TABLET PO PRN (14:42)
[2020-01-21] MEDS: IBUPROFEN 600 MG TABLET PO PRN (17:14)
[2020-01-21] MEDS: PHARMACY COMMUNICATION ORDER MC SCH (21:38)
[2020-01-21] MEDS: ZOLPIDEM TARTRATE 5 MG TABLET PO PRN (23:51)
[2020-01-22] MEDS: NAFCILLIN SODIUM 2 GM in DEXTROSE 5%-WATER 100 ML IV SCH ×5 (04:13→21:11)
[2020-01-22] MEDS: HEPARIN SOD (PORCINE) 5,000 UNIT/ML 1 ML VIAL SUBCUT SCH ×3 (06:00→21:16)
[2020-01-22] MEDS: OXYCODONE-ACETAMINOPHEN 5-325 MG TABLET PO PRN ×3 (07:49→19:49)
[2020-01-22] MEDS: LIDOCAINE 5% (700 MG) TRANSDERMAL ADH..PATCH TP SCH ×2 (09:46→09:55)
[2020-01-22] MEDS: BUSPIRONE HCL 10 MG TABLET PO SCH ×2 (09:46→21:11)
[2020-01-22] MEDS: CARISOPRODOL 350 MG TABLET PO SCH ×3 (09:46→20:02)
[2020-01-22] MEDS: SERTRALINE HCL 50 MG TABLET PO SCH (09:46)
[2020-01-22] MEDS: NORMAL SALINE 10 ML SDV (AFTER EACH USE) IV PRN (09:47)
[2020-01-22] MEDS: NORMAL SALINE 10 ML SDV (SCHEDULED) IV SCH ×2 (09:47→21:18)
[2020-01-22] MEDS: DOCUSATE SODIUM 100 MG CAPSULE PO SCH ×2 (09:55→17:19)
--- NOTE | 2020-01-22 11:47 | PDOC PROGRESS REPORT ---
Subjective Progress Note for:: 01/22/20 Subjective:: CHRIS LONDON is a 24 year old male with a past medical history of IV heroin drug abuse. He presents 7 days after an ER visit work-up for abdominal and back pain. He was summons to return to the emergency department for positive blood cultures with non-MRSA staph aureus. He is found to have hypotension, tachycardia, subjective fever, leukocytosis but an otherwise unremarkable work- up. He received Zosyn and referred to the hospitalist for admission. He denies previous history of endocarditis. 01/22/2020. No acute events overnight. Patient currently resting in no apparent distress, still complaining of chronic persistent lower back pain however much improved since admission, p.o. tolerant, ambulatory, having normal bowel and bladder movement, denies any fever, chills, nausea, vomiting, diarrhea, constipation or any urinary symptoms. Reason For Visit: IV DRUG ABUSE,STAPH AUREUS BACTEREMIA Physical Exam Vital Signs: Temp Pulse Resp BP Pulse Ox 97.4 F 73 16 127/62 H 100 01/22/20 07:31 01/22/20 07:31 01/22/20 07:31 01/22/20 07:31 01/22/20 07:31 Intake & Output 01/21/20 01/22/20 01/23/20 06:59 06:59 06:59 Intake Total 3244 4035 Balance 3244 4035 Weight 97.3 kg 97.3 kg General appearance: PRESENT: no acute distress, well-developed, well-nourished Head exam: PRESENT: atraumatic, normocephalic Respiratory exam: PRESENT: clear to auscultation brandon. ABSENT: rales, rhonchi, wheezes Cardiovascular exam: PRESENT: RRR. ABSENT: diastolic murmur, rubs, systolic murmur Pulses: PRESENT: normal dorsalis pedis pul Extremities exam: PRESENT: full ROM. ABSENT: calf tenderness, clubbing, pedal edema Neurological exam: PRESENT: alert, awake, oriented to person, oriented to place, oriented to time, oriented to situation, CN II-XII grossly intact. ABSENT: motor sensory deficit Skin exam: PRESENT: dry, intact, warm. ABSENT: cyanosis, rash Results Laboratory Results: 01/17/20 06:32 01/17/20 06:32 Impressions: Abdomen/Pelvis CT 01/05/20 22:33 IMPRESSION: No acute findings. Normal appendix. TECHNICAL DOCUMENTATION: Quality ID # 436: Final reports with documentation of one or more dose reduction techniques (e.g., Automated exposure control, adjustment of the mA and/or kV according to patient size, use of iterative reconstruction technique) copyright 2010 [employer]- All Rights Reserved Chest X-Ray 01/05/20 23:28 IMPRESSION: No acute cardiopulmonary abnormality copyright 2010 [employer]- All Rights Reserved PICC Line Insertion 01/14/20 08:00 IMPRESSION: SUCCESSFUL PLACEMENT OF A 5 FR DUAL LUMEN 39 CM PICC IN THE RIGHT BRACHIAL VEIN. Assessment and Plan - Diagnosis (1) Bacteremia Is this a current diagnosis for this admission?: Yes Plan: History of heroin abuse. Most likely source skin. Blood culture positive for MSSA 12/29/2019. Blood culture positive for MSSA 01/05/2020. Blood culture positive for MSSA 01/09/2020. Blood culture NGTD 01/11/2020. TTE/DENNIS negative for endocarditis. Lumbar MRI (11/19/2019, 12/29/2027) are both negative for osteomyelitis, discitis, psoas muscle abscess. Will need 4 weeks of IV antibiotics starting from last negative blood culture. Continue IV Nafcillin; EOT 02/08/[address] ID consulted. Recommendations noted. (2) Endocarditis Is this a current diagnosis for this admission?: No Plan: Ruled out. Afebrile. TTE/DENNIS negative for endocarditis. Evaluation and management as above. (3) Back pain Qualifiers: Back pain location: low back pain Back pain laterality: left Sciatica presence: without sciatica Is this a current diagnosis for this admission?: Yes Plan: Significant improvement with Soma. MRI (11/19/19 and 12/28/29) show L4-S1 mild DDD No acute/concerning findings. Tizanidine and Flexeril no improvement. Nonpharmacological interventions Continue Soma Motrin prn Lidoderm patches Judicious percocet Encourage ambulation. (4) History of intravenous drug abuse Is this a current diagnosis for this admission?: Yes Plan: Supportive care Monitor for evidence of withdrawal. HIV negative Hepatitis positive for hepatitis C Outpatient GI referral for hep C treatment Discharge planning consulted (5) Anxiety and depression Is this a current diagnosis for this admission?: Yes Plan: Denies any suicidal or homicidal ideation. Has history of chronic anxiety and depression. Takes BuSpar and Zoloft at home. Resume home meds. Encouraged ambulation in the hallways. Outpatient PCP and psychiatry follow-up.
[2020-01-22] MEDS: PHARMACY COMMUNICATION ORDER MC SCH (21:17)
[2020-01-23] MEDS: NAFCILLIN SODIUM 2 GM in DEXTROSE 5%-WATER 100 ML IV SCH ×6 (00:30→20:21)
[2020-01-23] MEDS: IBUPROFEN 600 MG TABLET PO PRN (01:11)
[2020-01-23] MEDS: OXYCODONE-ACETAMINOPHEN 5-325 MG TABLET PO PRN ×3 (01:59→21:32)
[2020-01-23] MEDS: CARISOPRODOL 350 MG TABLET PO SCH ×5 (01:59→21:33)
[2020-01-23] MEDS: ZOLPIDEM TARTRATE 5 MG TABLET PO PRN (03:11)
[2020-01-23] MEDS: HEPARIN SOD (PORCINE) 5,000 UNIT/ML 1 ML VIAL SUBCUT SCH ×3 (05:39→22:06)
--- NOTE | 2020-01-23 10:41 | PDOC PROGRESS REPORT ---
Subjective Progress Note for:: 01/23/20 Subjective:: CHRIS LONDON is a 24 year old male with a past medical history of IV heroin drug abuse. He presents 7 days after an ER visit work-up for abdominal and back pain. He was summons to return to the emergency department for positive blood cultures with non-MRSA staph aureus. He is found to have hypotension, tachycardia, subjective fever, leukocytosis but an otherwise unremarkable work- up. He received Zosyn and referred to the hospitalist for admission. He denies previous history of endocarditis. 01/22/2020. No acute events overnight. Patient currently resting in no apparent distress, still complaining of chronic persistent lower back pain however much improved since admission, p.o. tolerant, ambulatory, having normal bowel and bladder movement, denies any fever, chills, nausea, vomiting, diarrhea, constipation or any urinary symptoms. 01/23/2020. No acute events overnight. Comfortably sitting in bed no apparent distress. P.o. tolerant. Ambulatory. Having normal bowel and bladder movements. Denies any fever, chills, nausea, vomiting, diarrhea, constipation or any urinary symptoms. Reason For Visit: IV DRUG ABUSE,STAPH AUREUS BACTEREMIA Physical Exam Vital Signs: Temp Pulse Resp BP Pulse Ox 97.7 F 77 12 126/71 H 100 01/23/20 08:00 01/23/20 08:00 01/23/20 08:00 01/23/20 08:00 01/23/20 08:00 Intake & Output 01/22/20 01/23/20 01/24/20 06:59 06:59 06:59 Intake Total 4035 1990 360 Balance 4035 1990 Weight 97.3 kg 97.3 kg General appearance: PRESENT: no acute distress, well-developed, well-nourished Head exam: PRESENT: atraumatic, normocephalic Respiratory exam: PRESENT: clear to auscultation brandon. ABSENT: rales, rhonchi, wheezes Cardiovascular exam: PRESENT: RRR. ABSENT: diastolic murmur, rubs, systolic murmur Pulses: PRESENT: normal dorsalis pedis pul GI/Abdominal exam: PRESENT: normal bowel sounds, soft. ABSENT: distended, guarding, mass, organolmegaly, rebound, tenderness Extremities exam: PRESENT: full ROM. ABSENT: calf tenderness, clubbing, pedal edema Neurological exam: PRESENT: alert, awake, oriented to person, oriented to place, oriented to time, oriented to situation, CN II-XII grossly intact. ABSENT: motor sensory deficit Results Laboratory Results: 01/17/20 06:32 01/17/20 06:32 Impressions: Abdomen/Pelvis CT 01/05/20 22:33 IMPRESSION: No acute findings. Normal appendix. TECHNICAL DOCUMENTATION: Quality ID # 436: Final reports with documentation of one or more dose reduction techniques (e.g., Automated exposure control, adjustment of the mA and/or kV according to patient size, use of iterative reconstruction technique) copyright 2010 [employer]- All Rights Reserved Chest X-Ray 01/05/20 23:28 IMPRESSION: No acute cardiopulmonary abnormality copyright 2010 [employer]- All Rights Reserved PICC Line Insertion 01/14/20 08:00 IMPRESSION: SUCCESSFUL PLACEMENT OF A 5 FR DUAL LUMEN 39 CM PICC IN THE RIGHT BRACHIAL VEIN. Assessment and Plan - Diagnosis (1) Bacteremia Is this a current diagnosis for this admission?: Yes Plan: History of heroin abuse. Most likely source skin. Blood culture positive for MSSA 12/29/2019. Blood culture positive for MSSA 01/05/2020. Blood culture positive for MSSA 01/09/2020. Blood culture NGTD 01/11/2020. TTE/DENNIS negative for endocarditis. Lumbar MRI (11/19/2019, 12/29/2027) are both negative for osteomyelitis, discitis, psoas muscle abscess. Will need 4 weeks of IV antibiotics starting from last negative blood culture. Continue IV Nafcillin; EOT 02/08/[address] ID consulted. Recommendations noted. (2) Endocarditis Is this a current diagnosis for this admission?: No Plan: Ruled out. Afebrile. TTE/DENNIS negative for endocarditis. Evaluation and management as above. (3) Back pain Qualifiers: Back pain location: low back pain Back pain laterality: left Sciatica presence: without sciatica Is this a current diagnosis for this admission?: Yes Plan: Significant improvement with Soma. MRI (11/19/19 and 12/28/29) show L4-S1 mild DDD No acute/concerning findings. Tizanidine and Flexeril no improvement. Nonpharmacological interventions Continue Soma Motrin prn Lidoderm patches Judicious percocet Encourage ambulation. (4) History of intravenous drug abuse Is this a current diagnosis for this admission?: Yes Plan: Supportive care Monitor for evidence of withdrawal. HIV negative Hepatitis positive for hepatitis C Outpatient GI referral for hep C treatment Discharge planning consulted (5) Anxiety and depression Is this a current diagnosis for this admission?: Yes Plan: Denies any suicidal or homicidal ideation. Has history of chronic anxiety and depression. Takes BuSpar and Zoloft at home. Resume home meds. Encouraged ambulation in the hallways. Outpatient PCP and psychiatry follow-up.
[2020-01-23] MEDS: DOCUSATE SODIUM 100 MG CAPSULE PO SCH ×2 (10:53→16:59)
[2020-01-23] MEDS: LIDOCAINE 5% (700 MG) TRANSDERMAL ADH..PATCH TP SCH (10:56)
[2020-01-23] MEDS: NORMAL SALINE 10 ML SDV (SCHEDULED) IV SCH ×2 (10:57→22:05)
[2020-01-23] MEDS: SERTRALINE HCL 50 MG TABLET PO SCH (10:57)
[2020-01-23] MEDS: BUSPIRONE HCL 10 MG TABLET PO SCH ×2 (10:57→21:33)
[2020-01-23] MEDS: NORMAL SALINE 10 ML SDV (AFTER EACH USE) IV PRN ×2 (10:57→13:42)
[2020-01-23] MEDS ORDERED: TRAMADOL HCL 50 MG TABLET PO PRN (11:43)
[2020-01-23] MEDS ORDERED: OXYCODONE-ACETAMINOPHEN 5-325 MG TABLET PO PRN (11:43)
[2020-01-23] MEDS: PHARMACY COMMUNICATION ORDER MC SCH (22:05)
[2020-01-24] MEDS: NAFCILLIN SODIUM 2 GM in DEXTROSE 5%-WATER 100 ML IV SCH ×7 (00:19→23:19)
[2020-01-24] MEDS: ZOLPIDEM TARTRATE 5 MG TABLET PO PRN (00:22)
[2020-01-24] MEDS: HEPARIN SOD (PORCINE) 5,000 UNIT/ML 1 ML VIAL SUBCUT SCH ×3 (05:42→21:04)
[2020-01-24] MEDS: OXYCODONE-ACETAMINOPHEN 5-325 MG TABLET PO PRN ×3 (08:20→20:31)
[2020-01-24] MEDS: SERTRALINE HCL 50 MG TABLET PO SCH (10:52)
[2020-01-24] MEDS: BUSPIRONE HCL 10 MG TABLET PO SCH ×2 (10:52→21:06)
[2020-01-24] MEDS: CARISOPRODOL 350 MG TABLET PO SCH ×4 (10:52→21:05)
[2020-01-24] MEDS: NORMAL SALINE 10 ML SDV (SCHEDULED) IV SCH ×2 (10:53→21:07)
[2020-01-24] MEDS: NORMAL SALINE 10 ML SDV (AFTER EACH USE) IV PRN (10:53)
[2020-01-24] MEDS: DOCUSATE SODIUM 100 MG CAPSULE PO SCH ×2 (10:53→17:03)
[2020-01-24] MEDS: LIDOCAINE 5% (700 MG) TRANSDERMAL ADH..PATCH TP SCH (10:53)
[2020-01-24] MEDS: ACETAMINOPHEN 325 MG TABLET PO PRN (13:50)
[2020-01-24] MEDS: DULOXETINE HCL 30 MG CAPSULE.DR PO SCH (15:37)
--- NOTE | 2020-01-24 18:23 | PDOC PROGRESS REPORT ---
Subjective Progress Note for:: 01/24/20 Subjective:: CHRIS LONDON is a 24 year old male with a past medical history of IV heroin drug abuse. He presents 7 days after an ER visit work-up for abdominal and back pain. He was summons to return to the emergency department for positive blood cultures with non-MRSA staph aureus. He is found to have hypotension, tachycardia, subjective fever, leukocytosis but an otherwise unremarkable work- up. He received Zosyn and referred to the hospitalist for admission. He denies previous history of endocarditis. 01/22/2020. No acute events overnight. Patient currently resting in no apparent distress, still complaining of chronic persistent lower back pain however much improved since admission, p.o. tolerant, ambulatory, having normal bowel and bladder movement, denies any fever, chills, nausea, vomiting, diarrhea, constipation or any urinary symptoms. 01/23/2020. No acute events overnight. Comfortably sitting in bed no apparent distress. P.o. tolerant. Ambulatory. Having normal bowel and bladder movements. Denies any fever, chills, nausea, vomiting, diarrhea, constipation or any urinary symptoms. 01/24/2020. No acute events overnight. Patient very anxious today and was contemplating leaving AMA, stating that his depression medication may not be working well, unfortunately patient change his mind and decided to stay. Denies any fever, chills, nausea, vomiting, diarrhea, constipation or any urinary symptoms. P.o. tolerant. Ambulatory. Having normal bowel and bladder movements. Alert nursing staff. Cooperative and answering questions appropriately. Reason For Visit: IV DRUG ABUSE,STAPH AUREUS BACTEREMIA Physical Exam Vital Signs: Temp Pulse Resp BP Pulse Ox 97.4 F 71 12 126/67 H 100 01/24/20 11:41 01/24/20 11:41 01/24/20 11:41 01/24/20 11:41 01/24/20 11:41 Intake & Output 01/23/20 01/24/20 01/25/20 06:59 06:59 06:59 Intake Total 1990 1802 1035 Balance 1990 1801 1035 Weight 97.3 kg 97.3 kg General appearance: PRESENT: no acute distress, well-developed, well-nourished Head exam: PRESENT: atraumatic, normocephalic Respiratory exam: PRESENT: clear to auscultation brandon. ABSENT: rales, rhonchi, wheezes Cardiovascular exam: PRESENT: RRR. ABSENT: diastolic murmur, rubs, systolic murmur GI/Abdominal exam: PRESENT: normal bowel sounds, soft. ABSENT: distended, guarding, mass, organolmegaly, rebound, tenderness Extremities exam: PRESENT: full ROM. ABSENT: calf tenderness, clubbing, pedal edema Neurological exam: PRESENT: alert, awake, oriented to person, oriented to place, oriented to time, oriented to situation, CN II-XII grossly intact. ABSENT: motor sensory deficit Psychiatric exam: PRESENT: anxious Results Laboratory Results: 01/17/20 06:32 01/17/20 06:32 Impressions: Abdomen/Pelvis CT 01/05/20 22:33 IMPRESSION: No acute findings. Normal appendix. TECHNICAL DOCUMENTATION: Quality ID # 436: Final reports with documentation of one or more dose reduction techniques (e.g., Automated exposure control, adjustment of the mA and/or kV according to patient size, use of iterative reconstruction technique) copyright 2010 [employer]- All Rights Reserved Chest X-Ray 01/05/20 23:28 IMPRESSION: No acute cardiopulmonary abnormality copyright 2010 [employer]- All Rights Reserved PICC Line Insertion 01/14/20 08:00 IMPRESSION: SUCCESSFUL PLACEMENT OF A 5 FR DUAL LUMEN 39 CM PICC IN THE RIGHT BRACHIAL VEIN. Assessment and Plan - Diagnosis (1) Bacteremia Is this a current diagnosis for this admission?: Yes Plan: History of heroin abuse. Most likely source skin. Blood culture positive for MSSA 12/29/2019. Blood culture positive for MSSA 01/05/2020. Blood culture positive for MSSA 01/09/2020. Blood culture NGTD 01/11/2020. TTE/DENNIS negative for endocarditis. Lumbar MRI (11/19/2019, 12/29/2027) are both negative for osteomyelitis, discitis, psoas muscle abscess. Will need 4 weeks of IV antibiotics starting from last negative blood culture. Continue IV Nafcillin; EOT 02/08/[address] ID consulted. Recommendations noted. (2) Endocarditis Is this a current diagnosis for this admission?: No Plan: Ruled out. Afebrile. TTE/DENNIS negative for endocarditis. Evaluation and management as above. (3) Back pain Qualifiers: Back pain location: low back pain Back pain laterality: left Sciatica presence: without sciatica Is this a current diagnosis for this admission?: Yes Plan: Significant improvement with Soma. MRI (11/19/19 and 12/28/29) show L4-S1 mild DDD No acute/concerning findings. Tizanidine and Flexeril no improvement. Nonpharmacological interventions Continue Soma Motrin prn Lidoderm patches Judicious percocet Encourage ambulation. (4) History of intravenous drug abuse Is this a current diagnosis for this admission?: Yes Plan: Supportive care Monitor for evidence of withdrawal. HIV negative Hepatitis positive for hepatitis C Outpatient GI referral for hep C treatment Discharge planning consulted (5) Anxiety and depression Is this a current diagnosis for this admission?: Yes Plan: Denies any suicidal or homicidal ideation however mentions that he still feels depressed and thinks Zoloft is not enough. Has history of chronic anxiety and depression. Takes BuSpar and Zoloft at home. Resume home meds. We will add duloxetine to augment Zoloft. Duloxetine may also help with his back pain. Encouraged ambulation in the hallways. Outpatient PCP and psychiatry follow-up.
[2020-01-24] MEDS: TEMAZEPAM 7.5 MG CAPSULE PO SCH (21:06)
[2020-01-24] MEDS: PHARMACY COMMUNICATION ORDER MC SCH (21:07)
[2020-01-25] MEDS: NAFCILLIN SODIUM 2 GM in DEXTROSE 5%-WATER 100 ML IV SCH ×6 (03:05→23:45)
[2020-01-25] MEDS: OXYCODONE-ACETAMINOPHEN 5-325 MG TABLET PO PRN ×4 (03:05→21:16)
[2020-01-25] MEDS: HEPARIN SOD (PORCINE) 5,000 UNIT/ML 1 ML VIAL SUBCUT SCH ×3 (05:13→21:07)
[2020-01-25] MEDS: CARISOPRODOL 350 MG TABLET PO SCH ×4 (09:15→21:11)
[2020-01-25] MEDS: DULOXETINE HCL 30 MG CAPSULE.DR PO SCH (09:15)
[2020-01-25] MEDS: BUSPIRONE HCL 10 MG TABLET PO SCH ×2 (09:16→21:11)
[2020-01-25] MEDS: DOCUSATE SODIUM 100 MG CAPSULE PO SCH ×2 (09:16→17:11)
[2020-01-25] MEDS: SERTRALINE HCL 50 MG TABLET PO SCH (09:17)
[2020-01-25] MEDS: LIDOCAINE 5% (700 MG) TRANSDERMAL ADH..PATCH TP SCH (09:20)
[2020-01-25] MEDS: NORMAL SALINE 10 ML SDV (SCHEDULED) IV SCH ×2 (09:54→21:12)
--- NOTE | 2020-01-25 17:05 | PDOC PROGRESS REPORT ---
Subjective Progress Note for:: 01/25/20 Subjective:: CHRIS LONDON is a 24 year old male with a past medical history of IV heroin drug abuse. He presents 7 days after an ER visit work-up for abdominal and back pain. He was summons to return to the emergency department for positive blood cultures with non-MRSA staph aureus. He is found to have hypotension, tachycardia, subjective fever, leukocytosis but an otherwise unremarkable work- up. He received Zosyn and referred to the hospitalist for admission. He denies previous history of endocarditis. 01/22/2020. No acute events overnight. Patient currently resting in no apparent distress, still complaining of chronic persistent lower back pain however much improved since admission, p.o. tolerant, ambulatory, having normal bowel and bladder movement, denies any fever, chills, nausea, vomiting, diarrhea, constipation or any urinary symptoms. 01/23/2020. No acute events overnight. Comfortably sitting in bed no apparent distress. P.o. tolerant. Ambulatory. Having normal bowel and bladder movements. Denies any fever, chills, nausea, vomiting, diarrhea, constipation or any urinary symptoms. 01/24/2020. No acute events overnight. Patient very anxious today and was contemplating leaving AMA, stating that his depression medication may not be working well, unfortunately patient change his mind and decided to stay. Denies any fever, chills, nausea, vomiting, diarrhea, constipation or any urinary symptoms. P.o. tolerant. Ambulatory. Having normal bowel and bladder movements. Alert nursing staff. Cooperative and answering questions appropriately. 01/25/2020. No acute events overnight. Had good night sleep with temazepam. P.o. tolerant. Having normal bowel abdominal, ambulatory. Denies any fever, chills, nausea, vomiting, diarrhea, constipation or any urinary symptoms. Reason For Visit: IV DRUG ABUSE,STAPH AUREUS BACTEREMIA Physical Exam Vital Signs: Temp Pulse Resp BP Pulse Ox 97.6 F 73 16 113/73 100 01/25/20 15:12 01/25/20 15:12 01/25/20 15:12 01/25/20 15:12 01/25/20 15:12 Intake & Output 01/24/20 01/25/20 01/26/20 06:59 06:59 06:59 Intake Total 1802 2777 1191 Balance 1802 2777 1191 Weight 97.3 kg 97.3 kg General appearance: PRESENT: no acute distress, well-developed, well-nourished Head exam: PRESENT: atraumatic, normocephalic Respiratory exam: PRESENT: clear to auscultation brandon. ABSENT: rales, rhonchi, wheezes Cardiovascular exam: PRESENT: RRR. ABSENT: diastolic murmur, rubs, systolic murmur GI/Abdominal exam: PRESENT: normal bowel sounds, soft. ABSENT: distended, guarding, mass, organolmegaly, rebound, tenderness Neurological exam: PRESENT: alert, awake, oriented to person, oriented to place, oriented to time, oriented to situation, CN II-XII grossly intact. ABSENT: motor sensory deficit Skin exam: PRESENT: dry, intact, warm. ABSENT: cyanosis, rash Results Laboratory Results: 01/17/20 06:32 01/17/20 06:32 Impressions: Abdomen/Pelvis CT 01/05/20 22:33 IMPRESSION: No acute findings. Normal appendix. TECHNICAL DOCUMENTATION: Quality ID # 436: Final reports with documentation of one or more dose reduction techniques (e.g., Automated exposure control, adjustment of the mA and/or kV according to patient size, use of iterative reconstruction technique) copyright 2010 [employer]- All Rights Reserved Chest X-Ray 01/05/20 23:28 IMPRESSION: No acute cardiopulmonary abnormality copyright 2010 [employer]- All Rights Reserved PICC Line Insertion 01/14/20 08:00 IMPRESSION: SUCCESSFUL PLACEMENT OF A 5 FR DUAL LUMEN 39 CM PICC IN THE RIGHT BRACHIAL VEIN. Assessment and Plan - Diagnosis (1) Bacteremia Is this a current diagnosis for this admission?: Yes Plan: History of heroin abuse. Most likely source skin. Blood culture positive for MSSA 12/29/2019. Blood culture positive for MSSA 01/05/2020. Blood culture positive for MSSA 01/09/2020. Blood culture NGTD 01/11/2020. TTE/DENNIS negative for endocarditis. Lumbar MRI (11/19/2019, 12/29/2027) are both negative for osteomyelitis, discitis, psoas muscle abscess. Will need 4 weeks of IV antibiotics starting from last negative blood culture. Continue IV Nafcillin; EOT 02/08/[address] ID consulted. Recommendations noted. (2) Endocarditis Is this a current diagnosis for this admission?: No Plan: Ruled out. Afebrile. TTE/DENNIS negative for endocarditis. Evaluation and management as above. (3) Back pain Qualifiers: Back pain location: low back pain Back pain laterality: left Sciatica presence: without sciatica Is this a current diagnosis for this admission?: Yes Plan: Significant improvement with Soma. MRI (11/19/19 and 12/28/29) show L4-S1 mild DDD No acute/concerning findings. Tizanidine and Flexeril no improvement. Nonpharmacological interventions Continue Soma Motrin prn Lidoderm patches Judicious percocet Encourage ambulation. (4) History of intravenous drug abuse Is this a current diagnosis for this admission?: Yes Plan: Supportive care Monitor for evidence of withdrawal. HIV negative Hepatitis positive for hepatitis C Outpatient GI referral for hep C treatment Discharge planning consulted (5) Anxiety and depression Is this a current diagnosis for this admission?: Yes Plan: Denies any suicidal or homicidal ideation however mentions that he still feels depressed and thinks Zoloft is not enough. Has history of chronic anxiety and depression. Takes BuSpar and Zoloft at home. Resume home meds. We will add duloxetine to augment Zoloft. Duloxetine may also help with his back pain. Encouraged ambulation in the hallways. Outpatient PCP and psychiatry follow-up.
[2020-01-25] MEDS: ACETAMINOPHEN 325 MG TABLET PO PRN (18:44)
[2020-01-25] MEDS: PHARMACY COMMUNICATION ORDER MC SCH (21:08)
[2020-01-25] MEDS: TEMAZEPAM 7.5 MG CAPSULE PO SCH (21:11)
[2020-01-26] MEDS: OXYCODONE-ACETAMINOPHEN 5-325 MG TABLET PO PRN ×4 (03:44→22:35)
[2020-01-26] MEDS: NAFCILLIN SODIUM 2 GM in DEXTROSE 5%-WATER 100 ML IV SCH ×5 (03:44→20:57)
[2020-01-26] MEDS: HEPARIN SOD (PORCINE) 5,000 UNIT/ML 1 ML VIAL SUBCUT SCH ×3 (05:05→21:01)
[2020-01-26] MEDS: SERTRALINE HCL 50 MG TABLET PO SCH (10:30)
[2020-01-26] MEDS: DULOXETINE HCL 30 MG CAPSULE.DR PO SCH (10:30)
[2020-01-26] MEDS: BUSPIRONE HCL 10 MG TABLET PO SCH ×2 (10:31→21:00)
[2020-01-26] MEDS: CARISOPRODOL 350 MG TABLET PO SCH ×4 (10:31→21:00)
[2020-01-26] MEDS: DOCUSATE SODIUM 100 MG CAPSULE PO SCH ×2 (10:32→18:40)
[2020-01-26] MEDS: LIDOCAINE 5% (700 MG) TRANSDERMAL ADH..PATCH TP SCH (10:32)
[2020-01-26] MEDS: NORMAL SALINE 10 ML SDV (SCHEDULED) IV SCH ×2 (12:17→21:00)
--- NOTE | 2020-01-26 12:19 | PDOC PROGRESS REPORT ---
Subjective Progress Note for:: 01/26/20 Subjective:: CHRIS LONDON is a 24 year old male with a past medical history of IV heroin drug abuse. He presents 7 days after an ER visit work-up for abdominal and back pain. He was summons to return to the emergency department for positive blood cultures with non-MRSA staph aureus. He is found to have hypotension, tachycardia, subjective fever, leukocytosis but an otherwise unremarkable work- up. He received Zosyn and referred to the hospitalist for admission. He denies previous history of endocarditis. 01/22/2020. No acute events overnight. Patient currently resting in no apparent distress, still complaining of chronic persistent lower back pain however much improved since admission, p.o. tolerant, ambulatory, having normal bowel and bladder movement, denies any fever, chills, nausea, vomiting, diarrhea, constipation or any urinary symptoms. 01/23/2020. No acute events overnight. Comfortably sitting in bed no apparent distress. P.o. tolerant. Ambulatory. Having normal bowel and bladder movements. Denies any fever, chills, nausea, vomiting, diarrhea, constipation or any urinary symptoms. 01/24/2020. No acute events overnight. Patient very anxious today and was contemplating leaving AMA, stating that his depression medication may not be working well, unfortunately patient change his mind and decided to stay. Denies any fever, chills, nausea, vomiting, diarrhea, constipation or any urinary symptoms. P.o. tolerant. Ambulatory. Having normal bowel and bladder movements. Alert nursing staff. Cooperative and answering questions appropriately. 01/25/2020. No acute events overnight. Had good night sleep with temazepam. P.o. tolerant. Having normal bowel abdominal, ambulatory. Denies any fever, chills, nausea, vomiting, diarrhea, constipation or any urinary symptoms. 01/26/2020. No acute events overnight. Reason For Visit: IV DRUG ABUSE,STAPH AUREUS BACTEREMIA Physical Exam Vital Signs: Temp Pulse Resp BP Pulse Ox 97.5 F 80 16 131/65 H 100 01/26/20 11:18 01/26/20 11:18 01/26/20 11:18 01/26/20 11:18 01/26/20 11:18 Intake & Output 01/25/20 01/26/20 01/27/20 06:59 06:59 06:59 Intake Total 2777 2964 Balance 2777 2969 Weight 97.3 kg 97.3 kg General appearance: PRESENT: no acute distress, well-developed, well-nourished Head exam: PRESENT: atraumatic, normocephalic Eye exam: PRESENT: conjunctiva pink, EOMI, PERRLA. ABSENT: scleral icterus Ear exam: PRESENT: normal external ear exam Mouth exam: PRESENT: moist, tongue midline Neck exam: ABSENT: carotid bruit, JVD, lymphadenopathy, thyromegaly Respiratory exam: PRESENT: clear to auscultation brandon. ABSENT: rales, rhonchi, wheezes Cardiovascular exam: PRESENT: RRR. ABSENT: diastolic murmur, rubs, systolic murmur Pulses: PRESENT: normal dorsalis pedis pul Vascular exam: PRESENT: normal capillary refill GI/Abdominal exam: PRESENT: normal bowel sounds, soft. ABSENT: distended, guarding, mass, organolmegaly, rebound, tenderness Rectal exam: PRESENT: deferred Extremities exam: PRESENT: full ROM. ABSENT: calf tenderness, clubbing, pedal edema Neurological exam: PRESENT: alert, awake, oriented to person, oriented to place, oriented to time, oriented to situation, CN II-XII grossly intact. ABSENT: motor sensory deficit Psychiatric exam: PRESENT: appropriate affect, normal mood. ABSENT: homicidal ideation, suicidal ideation Skin exam: PRESENT: dry, intact, warm. ABSENT: cyanosis, rash Results Laboratory Results: 01/17/20 06:32 01/17/20 06:32 Impressions: Abdomen/Pelvis CT 01/05/20 22:33 IMPRESSION: No acute findings. Normal appendix. TECHNICAL DOCUMENTATION: Quality ID # 436: Final reports with documentation of one or more dose reduction techniques (e.g., Automated exposure control, adjustment of the mA and/or kV according to patient size, use of iterative reconstruction technique) copyright 2010 [employer]- All Rights Reserved Chest X-Ray 01/05/20 23:28 IMPRESSION: No acute cardiopulmonary abnormality copyright 2010 [employer]- All Rights Reserved PICC Line Insertion 01/14/20 08:00 IMPRESSION: SUCCESSFUL PLACEMENT OF A 5 FR DUAL LUMEN 39 CM PICC IN THE RIGHT BRACHIAL VEIN. Assessment and Plan - Diagnosis (1) Bacteremia Is this a current diagnosis for this admission?: Yes Plan: History of heroin abuse. Most likely source skin. Blood culture positive for MSSA 12/29/2019. Blood culture positive for MSSA 01/05/2020. Blood culture positive for MSSA 01/09/2020. Blood culture NGTD 01/11/2020. TTE/DENNIS negative for endocarditis. Lumbar MRI (11/19/2019, 12/29/2027) are both negative for osteomyelitis, discitis, psoas muscle abscess. Will need 4 weeks of IV antibiotics starting from last negative blood culture. Continue IV Nafcillin; EOT 02/08/[address] ID consulted. Recommendations noted. (2) Endocarditis Is this a current diagnosis for this admission?: No Plan: Ruled out. Afebrile. TTE/DENNIS negative for endocarditis. Evaluation and management as above. (3) Back pain Qualifiers: Back pain location: low back pain Back pain laterality: left Sciatica presence: without sciatica Is this a current diagnosis for this admission?: Yes Plan: Significant improvement with Soma. MRI (11/19/19 and 12/28/29) show L4-S1 mild DDD No acute/concerning findings. Tizanidine and Flexeril no improvement. Nonpharmacological interventions Continue Soma Motrin prn Lidoderm patches Judicious percocet Encourage ambulation. (4) History of intravenous drug abuse Is this a current diagnosis for this admission?: Yes Plan: Supportive care Monitor for evidence of withdrawal. HIV negative Hepatitis positive for hepatitis C Outpatient GI referral for hep C treatment Discharge planning consulted (5) Anxiety and depression Is this a current diagnosis for this admission?: Yes Plan: Denies any suicidal or homicidal ideation however mentions that he still feels depressed and thinks Zoloft is not enough. Has history of chronic anxiety and depression. Takes BuSpar and Zoloft at home. Resume home meds. Continue duloxetine and Zoloft. Encouraged ambulation in the hallways. Outpatient PCP and psychiatry follow-up.
[2020-01-26] MEDS ORDERED: NAFCILLIN SODIUM 2 GM in DEXTROSE 5%-WATER 100 ML IV SCH (20:00)
[2020-01-26] MEDS: NORMAL SALINE 10 ML SDV (AFTER EACH USE) IV PRN (20:57)
[2020-01-26] MEDS: TEMAZEPAM 7.5 MG CAPSULE PO SCH (21:00)
[2020-01-26] MEDS: PHARMACY COMMUNICATION ORDER MC SCH (21:01)
[2020-01-27] MEDS: NAFCILLIN SODIUM 2 GM in DEXTROSE 5%-WATER 100 ML IV SCH ×7 (00:12→23:55)
[2020-01-27] MEDS: NORMAL SALINE 10 ML SDV (AFTER EACH USE) IV PRN ×4 (00:12→23:55)
[2020-01-27] MEDS: OXYCODONE-ACETAMINOPHEN 5-325 MG TABLET PO PRN ×4 (04:36→22:33)
[2020-01-27] MEDS: HEPARIN SOD (PORCINE) 5,000 UNIT/ML 1 ML VIAL SUBCUT SCH ×3 (05:14→21:38)
[2020-01-27] MEDS: LIDOCAINE 5% (700 MG) TRANSDERMAL ADH..PATCH TP SCH (09:29)
[2020-01-27] MEDS: DOCUSATE SODIUM 100 MG CAPSULE PO SCH ×2 (09:29→17:04)
[2020-01-27] MEDS: DULOXETINE HCL 30 MG CAPSULE.DR PO SCH (09:30)
[2020-01-27] MEDS: BUSPIRONE HCL 10 MG TABLET PO SCH ×2 (09:30→21:37)
[2020-01-27] MEDS: CARISOPRODOL 350 MG TABLET PO SCH ×4 (09:30→21:37)
[2020-01-27] MEDS: NORMAL SALINE 10 ML SDV (SCHEDULED) IV SCH ×2 (09:31→21:37)
[2020-01-27] MEDS: SERTRALINE HCL 50 MG TABLET PO SCH (09:31)
--- NOTE | 2020-01-27 12:04 | PDOC PROGRESS REPORT ---
Subjective Progress Note for:: 01/27/20 Subjective:: CHRIS LONDON is a 24 year old male with a past medical history of IV heroin drug abuse. He presents 7 days after an ER visit work-up for abdominal and back pain. He was summons to return to the emergency department for positive blood cultures with non-MRSA staph aureus. He is found to have hypotension, tachycardia, subjective fever, leukocytosis but an otherwise unremarkable work- up. He received Zosyn and referred to the hospitalist for admission. He denies previous history of endocarditis. 01/22/2020. No acute events overnight. Patient currently resting in no apparent distress, still complaining of chronic persistent lower back pain however much improved since admission, p.o. tolerant, ambulatory, having normal bowel and bladder movement, denies any fever, chills, nausea, vomiting, diarrhea, constipation or any urinary symptoms. 01/23/2020. No acute events overnight. Comfortably sitting in bed no apparent distress. P.o. tolerant. Ambulatory. Having normal bowel and bladder movements. Denies any fever, chills, nausea, vomiting, diarrhea, constipation or any urinary symptoms. 01/24/2020. No acute events overnight. Patient very anxious today and was contemplating leaving AMA, stating that his depression medication may not be working well, unfortunately patient change his mind and decided to stay. Denies any fever, chills, nausea, vomiting, diarrhea, constipation or any urinary symptoms. P.o. tolerant. Ambulatory. Having normal bowel and bladder movements. Alert nursing staff. Cooperative and answering questions appropriately. 01/25/2020. No acute events overnight. Had good night sleep with temazepam. P.o. tolerant. Having normal bowel abdominal, ambulatory. Denies any fever, chills, nausea, vomiting, diarrhea, constipation or any urinary symptoms. 01/26/2020. No acute events overnight. 01/27/2020. No acute events overnight. Palpated this morning comfortably sitting mid upper distress. Denies any fever, chills, nausea, vomiting, diarrhea, constipation or any urinary symptoms. Still complaining of persistent back pain. Reason For Visit: IV DRUG ABUSE,STAPH AUREUS BACTEREMIA Physical Exam Vital Signs: Temp Pulse Resp BP Pulse Ox 97.5 F 76 16 113/59 L 100 01/27/20 11:53 01/27/20 11:53 01/27/20 11:53 01/27/20 11:53 01/27/20 11:53 Intake & Output 01/26/20 01/27/20 01/28/20 06:59 06:59 06:59 Intake Total 2964 2720 Balance 2964 2720 Weight 97.3 kg 97.3 kg General appearance: PRESENT: no acute distress, well-developed, well-nourished Head exam: PRESENT: atraumatic, normocephalic Respiratory exam: PRESENT: clear to auscultation brandon. ABSENT: rales, rhonchi, wheezes Cardiovascular exam: PRESENT: RRR. ABSENT: diastolic murmur, rubs, systolic murmur GI/Abdominal exam: PRESENT: normal bowel sounds, soft. ABSENT: distended, guarding, mass, organolmegaly, rebound, tenderness Extremities exam: PRESENT: full ROM. ABSENT: calf tenderness, clubbing, pedal edema Neurological exam: PRESENT: alert, awake, oriented to person, oriented to place, oriented to time, oriented to situation, CN II-XII grossly intact. ABSENT: motor sensory deficit Results Laboratory Results: 01/17/20 06:32 01/17/20 06:32 Impressions: Abdomen/Pelvis CT 01/05/20 22:33 IMPRESSION: No acute findings. Normal appendix. TECHNICAL DOCUMENTATION: Quality ID # 436: Final reports with documentation of one or more dose reduction techniques (e.g., Automated exposure control, adjustment of the mA and/or kV according to patient size, use of iterative reconstruction technique) copyright 2010 [employer]- All Rights Reserved Chest X-Ray 01/05/20 23:28 IMPRESSION: No acute cardiopulmonary abnormality copyright 2010 [employer]- All Rights Reserved PICC Line Insertion 01/14/20 08:00 IMPRESSION: SUCCESSFUL PLACEMENT OF A 5 FR DUAL LUMEN 39 CM PICC IN THE RIGHT BRACHIAL VEIN. Assessment and Plan - Diagnosis (1) Bacteremia Is this a current diagnosis for this admission?: Yes Plan: History of heroin abuse. Most likely source skin. Blood culture positive for MSSA 12/29/2019. Blood culture positive for MSSA 01/05/2020. Blood culture positive for MSSA 01/09/2020. Blood culture NGTD 01/11/2020. TTE/DENNIS negative for endocarditis. Lumbar MRI (11/19/2019, 12/29/2027) are both negative for osteomyelitis, discitis, psoas muscle abscess. Will need 4 weeks of IV antibiotics starting from last negative blood culture. Continue IV Nafcillin; EOT 02/08/[address] ID consulted. Recommendations noted. (2) Endocarditis Is this a current diagnosis for this admission?: No Plan: Ruled out. Afebrile. TTE/DENNIS negative for endocarditis. Evaluation and management as above. (3) Back pain Qualifiers: Back pain location: low back pain Back pain laterality: left Sciatica presence: without sciatica Is this a current diagnosis for this admission?: Yes Plan: Significant improvement with Soma. MRI (11/19/19 and 12/28/29) show L4-S1 mild DDD No acute/concerning findings. Tizanidine and Flexeril no improvement. Nonpharmacological interventions Continue Soma Motrin prn Lidoderm patches Judicious percocet Encourage ambulation. (4) History of intravenous drug abuse Is this a current diagnosis for this admission?: Yes Plan: Supportive care Monitor for evidence of withdrawal. HIV negative Hepatitis positive for hepatitis C Outpatient GI referral for hep C treatment Discharge planning consulted (5) Anxiety and depression Is this a current diagnosis for this admission?: Yes Plan: Denies any suicidal or homicidal ideation however mentions that he still feels depressed and thinks Zoloft is not enough. Has history of chronic anxiety and depression. Takes BuSpar and Zoloft at home. Resume home meds. Continue duloxetine and Zoloft. Encouraged ambulation in the hallways. Outpatient PCP and psychiatry follow-up.
[2020-01-27] MEDS: TEMAZEPAM 7.5 MG CAPSULE PO SCH (21:38)
[2020-01-27] MEDS: PHARMACY COMMUNICATION ORDER MC SCH (21:38)
[2020-01-28] MEDS: NORMAL SALINE 10 ML SDV (AFTER EACH USE) IV PRN ×2 (04:38→10:36)
[2020-01-28] MEDS: NAFCILLIN SODIUM 2 GM in DEXTROSE 5%-WATER 100 ML IV SCH ×5 (04:38→22:13)
[2020-01-28] MEDS: OXYCODONE-ACETAMINOPHEN 5-325 MG TABLET PO PRN ×4 (04:38→23:19)
[2020-01-28] MEDS: HEPARIN SOD (PORCINE) 5,000 UNIT/ML 1 ML VIAL SUBCUT SCH ×3 (05:44→22:04)
[2020-01-28] MEDS: BUSPIRONE HCL 10 MG TABLET PO SCH ×2 (10:34→22:14)
[2020-01-28] MEDS: DOCUSATE SODIUM 100 MG CAPSULE PO SCH ×2 (10:34→18:15)
[2020-01-28] MEDS: DULOXETINE HCL 30 MG CAPSULE.DR PO SCH (10:35)
[2020-01-28] MEDS: CARISOPRODOL 350 MG TABLET PO SCH ×4 (10:35→22:14)
[2020-01-28] MEDS: SERTRALINE HCL 50 MG TABLET PO SCH (10:35)
[2020-01-28] MEDS: LIDOCAINE 5% (700 MG) TRANSDERMAL ADH..PATCH TP SCH (10:36)
[2020-01-28] MEDS: NORMAL SALINE 10 ML SDV (SCHEDULED) IV SCH ×2 (10:36→22:15)
--- NOTE | 2020-01-28 17:35 | PDOC PROGRESS REPORT ---
Subjective Progress Note for:: 01/28/20 Subjective:: CHRIS LONDON is a 24 year old male with a past medical history of IV heroin drug abuse who was admitted for MSSA bacteremia. Patient was seen on morning rounds. He was awake, resting in bed comfortably on room air. He has no questions or concerns today. Back pain is adequately controlled. He denies recent fevers, chills, chest pain, palpitations, dyspnea, abd pain, nausea and vomiting. He has no other questions or concerns at this time. Encouraged to ambulate in the halls. No concerns per nursing. Asked nursing to watch for medication diversion closely. Reason For Visit: IV DRUG ABUSE,STAPH AUREUS BACTEREMIA Physical Exam Vital Signs: Temp Pulse Resp BP Pulse Ox 97.5 F 78 16 124/65 100 01/28/20 11:48 01/28/20 11:48 01/28/20 11:48 01/28/20 11:48 01/28/20 11:48 Intake & Output 01/27/20 01/28/20 01/29/20 06:59 06:59 06:59 Intake Total 2720 2280 701 Balance 2720 2280 701 Weight 97.3 kg 97.3 kg General appearance: PRESENT: no acute distress, well-developed, well-nourished Head exam: PRESENT: atraumatic, normocephalic Eye exam: PRESENT: conjunctiva pink, EOMI, PERRLA. ABSENT: scleral icterus Mouth exam: PRESENT: moist, tongue midline Respiratory exam: PRESENT: clear to auscultation brandon, symmetrical, unlabored. ABSENT: rales, rhonchi, wheezes Cardiovascular exam: PRESENT: RRR, +S1, +S2. ABSENT: diastolic murmur, rubs, systolic murmur Extremities exam: PRESENT: full ROM. ABSENT: calf tenderness, clubbing, pedal edema Musculoskeletal exam: PRESENT: ambulatory Neurological exam: PRESENT: alert, awake, oriented to person, oriented to place, oriented to time, oriented to situation, CN II-XII grossly intact. ABSENT: motor sensory deficit Psychiatric exam: PRESENT: flat affect, normal mood. ABSENT: homicidal ideation, suicidal ideation Skin exam: PRESENT: dry, intact, warm. ABSENT: cyanosis, rash Results Laboratory Results: 01/17/20 06:32 01/17/20 06:32 Impressions: Abdomen/Pelvis CT 01/05/20 22:33 IMPRESSION: No acute findings. Normal appendix. TECHNICAL DOCUMENTATION: Quality ID # 436: Final reports with documentation of one or more dose reduction techniques (e.g., Automated exposure control, adjustment of the mA and/or kV according to patient size, use of iterative reconstruction technique) copyright 2010 [employer]- All Rights Reserved Chest X-Ray 01/05/20 23:28 IMPRESSION: No acute cardiopulmonary abnormality copyright 2010 [employer]- All Rights Reserved PICC Line Insertion 01/14/20 08:00 IMPRESSION: SUCCESSFUL PLACEMENT OF A 5 FR DUAL LUMEN 39 CM PICC IN THE RIGHT BRACHIAL VEIN. Assessment and Plan - Diagnosis (1) Bacteremia Is this a current diagnosis for this admission?: Yes Plan: History of heroin abuse. Most likely source skin. Blood culture positive for MSSA 12/29/2019. Blood culture positive for MSSA 01/05/2020. Blood culture positive for MSSA 01/09/2020. Blood culture NGTD 01/11/2020. TTE/DENNIS negative for endocarditis. Lumbar MRI (11/19/2019, 12/29/2027) are both negative for osteomyelitis, discitis, psoas muscle abscess. Will need 4 weeks of IV antibiotics starting from last negative blood culture. Continue IV Nafcillin; EOT 02/08/[address] ID consulted. Recommendations noted. No changes to plan. (2) Endocarditis Is this a current diagnosis for this admission?: No Plan: Ruled out. Afebrile. TTE/DENNIS negative for endocarditis. Evaluation and management as above. (3) History of intravenous drug abuse Is this a current diagnosis for this admission?: Yes Plan: Supportive care Monitor for evidence of withdrawal. HIV negative Hepatitis positive for hepatitis C Last week, nursing reported possible medication diversion. Have asked nursing to watch closely for worrisome signs. May need to decrease/suspend percocet. Outpatient GI referral for hep C treatment Discharge planning consulted (4) Back pain Qualifiers: Back pain location: low back pain Back pain laterality: left Sciatica presence: without sciatica Is this a current diagnosis for this admission?: Yes Plan: Significant improvement with Soma. MRI (11/19/19 and 12/28/29) show L4-S1 mild DDD No acute/concerning findings. Tizanidine and Flexeril no improvement. Nonpharmacological interventions Continue Soma Motrin prn Lidoderm patches Judicious percocet; nursing reported possible medication diversion. Have asked nursing to watch closely for worrisome signs. May need to decrease/suspend percocet. Encourage ambulation. (5) Difficulty sleeping Is this a current diagnosis for this admission?: Yes Plan: Restoril nightly (6) Anxiety and depression Is this a current diagnosis for this admission?: Yes Plan: Denies any suicidal or homicidal ideation however mentions that he still feels depressed and thinks Zoloft is not enough. Has history of chronic anxiety and depression. Resume home meds. Continue duloxetine and Zoloft. Encouraged ambulation in the hallways. Outpatient PCP and psychiatry follow-up. - Time Time Spent with patient: Less than 15 minutes Medications reviewed and adjusted accordingly: Yes Anticipated discharge: Home Within: Other - 02/09/20
[2020-01-28] MEDS: TEMAZEPAM 7.5 MG CAPSULE PO SCH (22:14)
[2020-01-28] MEDS: PHARMACY COMMUNICATION ORDER MC SCH (22:15)
[2020-01-29] MEDS: NAFCILLIN SODIUM 2 GM in DEXTROSE 5%-WATER 100 ML IV SCH ×7 (00:05→23:55)
[2020-01-29] MEDS: HEPARIN SOD (PORCINE) 5,000 UNIT/ML 1 ML VIAL SUBCUT SCH ×2 (05:16→14:26)
[2020-01-29] MEDS: OXYCODONE-ACETAMINOPHEN 5-325 MG TABLET PO PRN ×4 (05:50→23:55)
[2020-01-29] MEDS: CARISOPRODOL 350 MG TABLET PO SCH ×4 (09:26→21:49)
[2020-01-29] MEDS: BUSPIRONE HCL 10 MG TABLET PO SCH ×2 (09:26→21:49)
[2020-01-29] MEDS: SERTRALINE HCL 50 MG TABLET PO SCH (09:26)
[2020-01-29] MEDS: NORMAL SALINE 10 ML SDV (AFTER EACH USE) IV PRN (09:26)
[2020-01-29] MEDS: NORMAL SALINE 10 ML SDV (SCHEDULED) IV SCH ×2 (09:26→21:50)
[2020-01-29] MEDS: DULOXETINE HCL 30 MG CAPSULE.DR PO SCH (09:26)
[2020-01-29] MEDS: DOCUSATE SODIUM 100 MG CAPSULE PO SCH (09:27)
[2020-01-29] MEDS: LIDOCAINE 5% (700 MG) TRANSDERMAL ADH..PATCH TP SCH (09:28)
--- NOTE | 2020-01-29 15:01 | PDOC PROGRESS REPORT ---
Subjective Progress Note for:: 01/29/20 Subjective:: CHRIS LONDON is a 24 year old male with a past medical history of IV heroin drug abuse who was admitted for MSSA bacteremia. Patient was seen on morning rounds. He was awake, resting in bed comfortably on room air. Asks to go outside accompanied by staff for a few minutes today. Otherwise, he has no questions or concerns. Back pain is adequately controlled. He denies recent fevers, chills, chest pain, palpitations, dyspnea, abd pain, nausea and vomiting. He has no other questions or concerns at this time. Encouraged to ambulate in the halls. No concerns per nursing. Asked nursing to watch for medication diversion closely. Reason For Visit: IV DRUG ABUSE,STAPH AUREUS BACTEREMIA Physical Exam Vital Signs: Temp Pulse Resp BP Pulse Ox 97.5 F 65 16 131/61 H 100 01/29/20 11:26 01/29/20 11:26 01/29/20 11:26 01/29/20 11:26 01/29/20 11:26 Intake & Output 01/28/20 01/29/20 01/30/20 06:59 06:59 06:59 Intake Total 2280 2771 360 Balance 2280 2771 360 Weight 97.3 kg 97.4 kg General appearance: PRESENT: no acute distress, cooperative, well-developed, well-nourished - overweight Head exam: PRESENT: atraumatic, normocephalic Eye exam: PRESENT: conjunctiva pink, EOMI, PERRLA. ABSENT: scleral icterus Mouth exam: PRESENT: moist, tongue midline Respiratory exam: PRESENT: clear to auscultation brandon. ABSENT: rales, rhonchi, wheezes Cardiovascular exam: PRESENT: RRR, +S1, +S2. ABSENT: diastolic murmur, rubs, systolic murmur Extremities exam: PRESENT: full ROM. ABSENT: calf tenderness, clubbing, pedal edema Musculoskeletal exam: PRESENT: ambulatory Neurological exam: PRESENT: alert, awake, oriented to person, oriented to place, oriented to time, oriented to situation, CN II-XII grossly intact. ABSENT: motor sensory deficit Psychiatric exam: PRESENT: appropriate affect, normal mood. ABSENT: homicidal ideation, suicidal ideation Skin exam: PRESENT: dry, intact, warm. ABSENT: cyanosis, rash Results Laboratory Results: 01/17/20 06:32 01/17/20 06:32 Impressions: Abdomen/Pelvis CT 01/05/20 22:33 IMPRESSION: No acute findings. Normal appendix. TECHNICAL DOCUMENTATION: Quality ID # 436: Final reports with documentation of one or more dose reduction techniques (e.g., Automated exposure control, adjustment of the mA and/or kV according to patient size, use of iterative reconstruction technique) copyright 2010 [employer]- All Rights Reserved Chest X-Ray 01/05/20 23:28 IMPRESSION: No acute cardiopulmonary abnormality copyright 2010 [employer]- All Rights Reserved PICC Line Insertion 01/14/20 08:00 IMPRESSION: SUCCESSFUL PLACEMENT OF A 5 FR DUAL LUMEN 39 CM PICC IN THE RIGHT BRACHIAL VEIN. Assessment and Plan - Diagnosis (1) Bacteremia Is this a current diagnosis for this admission?: Yes Plan: History of heroin abuse. Most likely source skin. Blood culture positive for MSSA 12/29/2019. Blood culture positive for MSSA 01/05/2020. Blood culture positive for MSSA 01/09/2020. Blood culture NGTD 01/11/2020. TTE/DENNIS negative for endocarditis. Lumbar MRI (11/19/2019, 12/29/2027) are both negative for osteomyelitis, discitis, psoas muscle abscess. Will need 4 weeks of IV antibiotics starting from last negative blood culture. Continue IV Nafcillin; EOT 02/08/[address] ID consulted. Recommendations noted. No changes to plan. (2) Endocarditis Is this a current diagnosis for this admission?: No Plan: Ruled out. Afebrile. TTE/DENNIS negative for endocarditis. Evaluation and management as above. (3) History of intravenous drug abuse Is this a current diagnosis for this admission?: Yes Plan: Supportive care Monitor for evidence of withdrawal. HIV negative Hepatitis positive for hepatitis C Last week, nursing reported possible medication diversion. Have asked nursing to watch closely for worrisome signs. May need to decrease/suspend percocet. Outpatient GI referral for hep C treatment Discharge planning consulted (4) Back pain Qualifiers: Back pain location: low back pain Back pain laterality: left Sciatica presence: without sciatica Is this a current diagnosis for this admission?: Yes Plan: Significant improvement with Soma. MRI (11/19/19 and 12/28/29) show L4-S1 mild DDD No acute/concerning findings. Tizanidine and Flexeril no improvement. Nonpharmacological interventions Continue Soma Motrin prn Lidoderm patches Judicious percocet; nursing reported possible medication diversion. Have asked nursing to watch closely for worrisome signs. May need to decrease/suspend percocet. Encourage ambulation. (5) Difficulty sleeping Is this a current diagnosis for this admission?: Yes Plan: Restoril nightly (6) Anxiety and depression Is this a current diagnosis for this admission?: Yes Plan: Denies any suicidal or homicidal ideation however mentions that he still feels depressed and thinks Zoloft is not enough. Has history of chronic anxiety and depression. Resume home meds. Continue duloxetine and Zoloft. Encouraged ambulation in the hallways. Outpatient PCP and psychiatry follow-up. - Time Time Spent with patient: Less than 15 minutes Medications reviewed and adjusted accordingly: Yes Anticipated discharge: Home
[2020-01-29] MEDS: TEMAZEPAM 7.5 MG CAPSULE PO SCH (21:49)
[2020-01-29] MEDS: PHARMACY COMMUNICATION ORDER MC SCH (21:50)
[2020-01-30] MEDS: NAFCILLIN SODIUM 2 GM in DEXTROSE 5%-WATER 100 ML IV SCH ×5 (03:20→22:02)
[2020-01-30] MEDS: OXYCODONE-ACETAMINOPHEN 5-325 MG TABLET PO PRN ×3 (06:01→18:04)
[2020-01-30] MEDS: NORMAL SALINE 10 ML SDV (SCHEDULED) IV SCH ×2 (09:22→22:02)
[2020-01-30] MEDS: BUSPIRONE HCL 10 MG TABLET PO SCH ×2 (09:22→22:02)
[2020-01-30] MEDS: SERTRALINE HCL 50 MG TABLET PO SCH (09:22)
[2020-01-30] MEDS: CARISOPRODOL 350 MG TABLET PO SCH ×4 (09:22→22:03)
[2020-01-30] MEDS: DULOXETINE HCL 30 MG CAPSULE.DR PO SCH (09:22)
[2020-01-30] MEDS: LIDOCAINE 5% (700 MG) TRANSDERMAL ADH..PATCH TP SCH (09:22)
[2020-01-30] MEDS: IBUPROFEN 600 MG TABLET PO PRN ×2 (09:25→23:58)
--- NOTE | 2020-01-30 17:22 | PDOC PROGRESS REPORT ---
Subjective Progress Note for:: 01/30/20 Subjective:: CHRIS LONDON is a 24 year old male with a past medical history of IV heroin drug abuse who was admitted for MSSA bacteremia. Patient was seen on afternoon rounds. He was awake, resting in bed comfortably on room air. He has no questions or concerns. Back pain is adequately controlled. He denies recent fevers, chills, chest pain, palpitations, dyspnea, abd pain, nausea and vomiting. He has no other questions or concerns at this time. Encouraged to ambulate in the halls. No concerns per nursing. Reason For Visit: IV DRUG ABUSE,STAPH AUREUS BACTEREMIA Physical Exam Vital Signs: Temp Pulse Resp BP Pulse Ox 97.8 F 72 16 112/64 100 01/30/20 16:28 01/30/20 16:28 01/30/20 16:28 01/30/20 16:28 01/30/20 16:28 Intake & Output 01/29/20 01/30/20 01/31/20 06:59 06:59 06:59 Intake Total 2771 3812 200 Balance 2771 3812 200 Weight 97.4 kg 97.4 kg 97.4 kg General appearance: PRESENT: no acute distress, cooperative, well-developed, well-nourished - Overweight Head exam: PRESENT: atraumatic, normocephalic Eye exam: PRESENT: conjunctiva pink, EOMI, PERRLA. ABSENT: scleral icterus Mouth exam: PRESENT: moist, tongue midline Respiratory exam: PRESENT: clear to auscultation brandon, symmetrical, unlabored. ABSENT: rales, rhonchi, wheezes Cardiovascular exam: PRESENT: RRR. ABSENT: diastolic murmur, rubs, systolic murmur Rectal exam: PRESENT: deferred Extremities exam: PRESENT: full ROM. ABSENT: calf tenderness, clubbing, pedal edema Musculoskeletal exam: PRESENT: ambulatory Neurological exam: PRESENT: alert, awake, oriented to person, oriented to place, oriented to time, oriented to situation, CN II-XII grossly intact. ABSENT: motor sensory deficit Psychiatric exam: PRESENT: appropriate affect, normal mood. ABSENT: homicidal ideation, suicidal ideation Skin exam: PRESENT: dry, intact, warm. ABSENT: cyanosis, rash Results Laboratory Results: 01/17/20 06:32 01/17/20 06:32 Impressions: Abdomen/Pelvis CT 01/05/20 22:33 IMPRESSION: No acute findings. Normal appendix. TECHNICAL DOCUMENTATION: Quality ID # [id number]: Final reports with documentation of one or more dose reduction techniques (e.g., Automated exposure control, adjustment of the mA and/or kV according to patient size, use of iterative reconstruction technique) copyright 2010 [email or web address]- All Rights Reserved Chest X-Ray 01/05/20 23:28 IMPRESSION: No acute cardiopulmonary abnormality copyright 2010 [email or web address]- All Rights Reserved PICC Line Insertion 01/14/20 08:00 IMPRESSION: SUCCESSFUL PLACEMENT OF A 5 FR DUAL LUMEN 39 CM PICC IN THE RIGHT BRACHIAL VEIN. Assessment and Plan - Diagnosis (1) Bacteremia Is this a current diagnosis for this admission?: Yes Plan: History of heroin abuse. Most likely source skin. Blood culture positive for MSSA 12/29/2019. Blood culture positive for MSSA 01/05/2020. Blood culture positive for MSSA 01/09/2020. Blood culture NGTD 01/11/2020. TTE/DENNIS negative for endocarditis. Lumbar MRI (11/19/2019, 12/29/2027) are both negative for osteomyelitis, discitis, psoas muscle abscess. Will need 4 weeks of IV antibiotics starting from last negative blood culture. Continue IV Nafcillin; EOT 02/08/[address] ID consulted. Recommendations noted. No changes to plan. (2) Endocarditis Is this a current diagnosis for this admission?: No Plan: Ruled out. Afebrile. TTE/DENNIS negative for endocarditis. Evaluation and management as above. (3) History of intravenous drug abuse Is this a current diagnosis for this admission?: Yes Plan: Supportive care Monitor for evidence of withdrawal. HIV negative Hepatitis positive for hepatitis C Last week, nursing reported possible medication diversion. Have asked nursing to watch closely for worrisome signs. May need to decrease/suspend percocet. Outpatient GI referral for hep C treatment Discharge planning consulted (4) Back pain Qualifiers: Back pain location: low back pain Back pain laterality: left Sciatica presence: without sciatica Is this a current diagnosis for this admission?: Yes Plan: Significant improvement with Soma. MRI (11/19/19 and 12/28/29) show L4-S1 mild DDD No acute/concerning findings. Tizanidine and Flexeril no improvement. Nonpharmacological interventions Continue Soma Motmaurilio prn Lidoderm patches Judicious percocet; nursing reported possible medication diversion. Have asked nursing to watch closely for worrisome signs. May need to decrease/suspend percocet. Encourage ambulation. (5) Difficulty sleeping Is this a current diagnosis for this admission?: Yes Plan: Restoril nightly (6) Anxiety and depression Is this a current diagnosis for this admission?: Yes Plan: Denies any suicidal or homicidal ideation however mentions that he still feels depressed and thinks Zoloft is not enough. Has history of chronic anxiety and depression. Resume home meds. Continue duloxetine and Zoloft. Encouraged ambulation in the hallways. Outpatient PCP and psychiatry follow-up. - Time Time Spent with patient: 15-24 minutes Medications reviewed and adjusted accordingly: Yes Anticipated discharge: Home Within: Other - 02/09/20
[2020-01-30] MEDS: TEMAZEPAM 7.5 MG CAPSULE PO SCH (22:02)
[2020-01-30] MEDS: PHARMACY COMMUNICATION ORDER MC SCH (22:03)
[2020-01-31] MEDS: NAFCILLIN SODIUM 2 GM in DEXTROSE 5%-WATER 100 ML IV SCH ×6 (00:20→22:01)
[2020-01-31] MEDS ORDERED: OXYCODONE-ACETAMINOPHEN 5-325 MG TABLET PO PRN (00:23)
[2020-01-31] MEDS: SERTRALINE HCL 50 MG TABLET PO SCH (09:41)
[2020-01-31] MEDS: DULOXETINE HCL 30 MG CAPSULE.DR PO SCH (09:41)
[2020-01-31] MEDS: CARISOPRODOL 350 MG TABLET PO SCH ×4 (09:41→22:01)
[2020-01-31] MEDS: BUSPIRONE HCL 10 MG TABLET PO SCH ×2 (09:41→22:01)
[2020-01-31] MEDS: NORMAL SALINE 10 ML SDV (SCHEDULED) IV SCH ×2 (09:42→22:00)
[2020-01-31] MEDS: LIDOCAINE 5% (700 MG) TRANSDERMAL ADH..PATCH TP SCH (09:42)
--- NOTE | 2020-01-31 15:40 | PDOC PROGRESS REPORT ---
Subjective Progress Note for:: 01/31/20 Subjective:: CHRIS LONDON is a 24 year old male with a past medical history of IV heroin drug abuse who was admitted for MSSA bacteremia. Patient was seen on morning rounds. He was awake, resting in bed comfortably on room air. He has no questions or concerns. Reports back pain, requests medications. He denies recent fevers, chills, chest pain, palpitations, dyspnea, abd pain, nausea and vomiting. He has no other questions or concerns at this time. Encouraged to ambulate in the halls. No concerns per nursing. Reason For Visit: IV DRUG ABUSE,STAPH [facility]US BACTEREMIA Physical Exam Vital Signs: Temp Pulse Resp BP Pulse Ox 97.6 F 73 16 119/76 100 01/31/20 11:26 01/31/20 11:26 01/31/20 11:26 01/31/20 11:26 01/31/20 11:26 Intake & Output 01/30/20 01/31/20 02/01/20 06:59 06:59 06:59 Intake Total 3812 1425 600 Balance 3812 1425 600 Weight 97.4 kg 97.4 kg General appearance: PRESENT: no acute distress, well-developed, well-nourished - overweight Head exam: PRESENT: atraumatic, normocephalic Eye exam: PRESENT: conjunctiva pink, EOMI, PERRLA. ABSENT: scleral icterus Mouth exam: PRESENT: moist, tongue midline Respiratory exam: PRESENT: clear to auscultation brandon. ABSENT: rales, rhonchi, wheezes Cardiovascular exam: PRESENT: RRR. ABSENT: diastolic murmur, rubs, systolic murmur Extremities exam: PRESENT: full ROM. ABSENT: calf tenderness, clubbing, pedal edema Musculoskeletal exam: PRESENT: ambulatory Neurological exam: PRESENT: alert, awake, oriented to person, oriented to place, oriented to time, oriented to situation, CN II-XII grossly intact. ABSENT: motor sensory deficit Psychiatric exam: PRESENT: appropriate affect, normal mood. ABSENT: homicidal ideation, suicidal ideation Skin exam: PRESENT: dry, intact, warm. ABSENT: cyanosis, rash Results Laboratory Results: 01/17/20 06:32 01/17/20 06:32 Impressions: Abdomen/Pelvis CT 01/05/20 22:33 IMPRESSION: No acute findings. Normal appendix. TECHNICAL DOCUMENTATION: Quality ID # [id number]: Final reports with documentation of one or more dose reduction techniques (e.g., Automated exposure control, adjustment of the mA and/or kV according to patient size, use of iterative reconstruction technique) copyright 2010 [employer]- All Rights Reserved Chest X-Ray 01/05/20 23:28 IMPRESSION: No acute cardiopulmonary abnormality copyright 2010 [employer]- All Rights Reserved PICC Line Insertion 01/14/20 08:00 IMPRESSION: SUCCESSFUL PLACEMENT OF A 5 FR DUAL LUMEN 39 CM PICC IN THE RIGHT BRACHIAL VEIN. Assessment and Plan - Diagnosis (1) Bacteremia Is this a current diagnosis for this admission?: Yes Plan: History of heroin abuse. Most likely source skin. Blood culture positive for MSSA 12/29/2019. Blood culture positive for MSSA 01/05/2020. Blood culture positive for MSSA 01/09/2020. Blood culture NGTD 01/11/2020. TTE/DENNIS negative for endocarditis. Lumbar MRI (11/19/2019, 12/29/2027) are both negative for osteomyelitis, discitis, psoas muscle abscess. Will need 4 weeks of IV antibiotics starting from last negative blood culture. Continue IV Nafcillin; EOT 02/08/[address] ID consulted. Recommendations noted. No changes to plan. (2) Endocarditis Is this a current diagnosis for this admission?: No Plan: Ruled out. Afebrile. TTE/DENNIS negative for endocarditis. Evaluation and management as above. (3) History of intravenous drug abuse Is this a current diagnosis for this admission?: Yes Plan: Supportive care Monitor for evidence of withdrawal. HIV negative Hepatitis positive for hepatitis C Last week, nursing reported possible medication diversion. Have asked nursing to watch closely for worrisome signs. Outpatient GI referral for hep C treatment Discharge planning consulted (4) Back pain Qualifiers: Back pain location: low back pain Back pain laterality: left Sciatica presence: without sciatica Is this a current diagnosis for this admission?: Yes Plan: Significant improvement with Soma. MRI (11/19/19 and 12/28/29) show L4-S1 mild DDD No acute/concerning findings. Tizanidine and Flexeril no improvement. Nonpharmacological interventions Continue Soma Motrin prn Lidoderm patches Tramadol prn; oxycodone twice daily for severe pain Encourage ambulation. (5) Difficulty sleeping Is this a current diagnosis for this admission?: Yes Plan: Restoril nightly (6) Anxiety and depression Is this a current diagnosis for this admission?: Yes Plan: Denies any suicidal or homicidal ideation however mentions that he still feels depressed and thinks Zoloft is not enough. Has history of chronic anxiety and depression. Resume home meds. Continue duloxetine and Zoloft. Encouraged ambulation in the hallways. Outpatient PCP and psychiatry follow-up. - Time Time Spent with patient: Less than 15 minutes Medications reviewed and adjusted accordingly: Yes Anticipated discharge: Home Within: Other - 02/09/20
[2020-01-31] MEDS: IBUPROFEN 600 MG TABLET PO PRN (15:45)
[2020-01-31] MEDS: OXYCODONE-ACETAMINOPHEN 5-325 MG TABLET PO PRN (18:14)
[2020-01-31] MEDS: TRAMADOL HCL 50 MG TABLET PO PRN (22:00)
[2020-01-31] MEDS: TEMAZEPAM 7.5 MG CAPSULE PO SCH (22:01)
[2020-02-01] MEDS: PHARMACY COMMUNICATION ORDER MC SCH ×2 (00:08→21:40)
[2020-02-01] MEDS: NAFCILLIN SODIUM 2 GM in DEXTROSE 5%-WATER 100 ML IV SCH ×7 (00:31→23:16)
[2020-02-01] MEDS: OXYCODONE-ACETAMINOPHEN 5-325 MG TABLET PO PRN ×2 (08:01→20:05)
[2020-02-01] MEDS: BUSPIRONE HCL 10 MG TABLET PO SCH ×2 (09:51→21:40)
[2020-02-01] MEDS: DULOXETINE HCL 30 MG CAPSULE.DR PO SCH (09:51)
[2020-02-01] MEDS: CARISOPRODOL 350 MG TABLET PO SCH ×4 (09:51→21:39)
[2020-02-01] MEDS: SERTRALINE HCL 50 MG TABLET PO SCH (09:51)
[2020-02-01] MEDS: LIDOCAINE 5% (700 MG) TRANSDERMAL ADH..PATCH TP SCH (09:52)
[2020-02-01] MEDS: NORMAL SALINE 10 ML SDV (SCHEDULED) IV SCH ×2 (09:52→21:40)
[2020-02-01] MEDS: IBUPROFEN 600 MG TABLET PO PRN (13:03)
--- NOTE | 2020-02-01 13:04 | PDOC PROGRESS REPORT ---
Subjective Progress Note for:: 02/01/20 Subjective:: CHRIS LONDON is a 24 year old male with a past medical history of IV heroin drug abuse who was admitted for MSSA bacteremia. Patient was seen on morning rounds. He was awake, resting in bed comfortably on room air. He has no questions or concerns. Reports back pain, requests medications; he is encouraged to change positions, ambulate, and stretch. He denies recent fevers, chills, chest pain, palpitations, dyspnea, abd pain, nausea and vomiting. He has no other questions or concerns at this time. No concerns per nursing. Reason For Visit: IV DRUG ABUSE,STAPH AUREUS BACTEREMIA Physical Exam Vital Signs: Temp Pulse Resp BP Pulse Ox 97.3 F 64 16 122/64 100 02/01/20 07:31 02/01/20 07:31 02/01/20 07:31 02/01/20 07:31 02/01/20 07:31 Intake & Output 01/31/20 02/01/20 02/02/20 06:59 06:59 06:59 Intake Total 1425 2650 Balance 1425 2650 Weight 97.4 kg 97.7 kg General appearance: PRESENT: no acute distress, well-developed, well-nourished Head exam: PRESENT: atraumatic, normocephalic Eye exam: PRESENT: conjunctiva pink, EOMI, PERRLA. ABSENT: scleral icterus Respiratory exam: PRESENT: clear to auscultation brandon. ABSENT: rales, rhonchi, wheezes Cardiovascular exam: PRESENT: RRR. ABSENT: diastolic murmur, rubs, systolic murmur Musculoskeletal exam: PRESENT: ambulatory Neurological exam: PRESENT: alert, awake, oriented to person, oriented to place, oriented to time, oriented to situation, CN II-XII grossly intact. ABSENT: motor sensory deficit Skin exam: PRESENT: dry, intact, warm. ABSENT: cyanosis, rash Results Laboratory Results: 01/17/20 06:32 01/17/20 06:32 Impressions: Abdomen/Pelvis CT 01/05/20 22:33 IMPRESSION: No acute findings. Normal appendix. TECHNICAL DOCUMENTATION: Quality ID # [id number]: Final reports with documentation of one or more dose reduction techniques (e.g., Automated exposure control, adjustment of the mA and/or kV according to patient size, use of iterative reconstruction technique) copyright 2011 [employer]- All Rights Reserved Chest X-Ray 01/05/20 23:28 IMPRESSION: No acute cardiopulmonary abnormality copyright 2010 [employer]- All Rights Reserved PICC Line Insertion 01/14/20 08:00 IMPRESSION: SUCCESSFUL PLACEMENT OF A 5 FR DUAL LUMEN 39 CM PICC IN THE RIGHT BRACHIAL VEIN. Assessment and Plan - Diagnosis (1) Bacteremia Is this a current diagnosis for this admission?: Yes Plan: History of heroin abuse. Most likely source skin. Blood culture positive for MSSA 12/29/2019. Blood culture positive for MSSA 01/05/2020. Blood culture positive for MSSA 01/09/2020. Blood culture NGTD 01/11/2020. TTE/DENNIS negative for endocarditis. Lumbar MRI (11/19/2019, 12/29/2027) are both negative for osteomyelitis, discitis, psoas muscle abscess. Will need 4 weeks of IV antibiotics starting from last negative blood culture. Continue IV Nafcillin; EOT 02/08/[address] ID consulted. Recommendations noted. No changes to plan. (2) Endocarditis Is this a current diagnosis for this admission?: No Plan: Ruled out. Afebrile. TTE/DENNIS negative for endocarditis. Evaluation and management as above. (3) History of intravenous drug abuse Is this a current diagnosis for this admission?: Yes Plan: Supportive care Monitor for evidence of withdrawal. HIV negative Hepatitis positive for hepatitis C Last week, nursing reported possible medication diversion. Have asked nursing to watch closely for worrisome signs. Outpatient GI referral for hep C treatment Discharge planning consulted (4) Back pain Qualifiers: Back pain location: low back pain Back pain laterality: left Sciatica presence: without sciatica Is this a current diagnosis for this admission?: Yes Plan: Significant improvement with Soma. MRI (11/19/19 and 12/28/29) show L4-S1 mild DDD No acute/concerning findings. Tizanidine and Flexeril no improvement. Nonpharmacological interventions Continue Soma Motrin prn Lidoderm patches Tramadol prn; oxycodone twice daily for severe pain Encourage ambulation. (5) Difficulty sleeping Is this a current diagnosis for this admission?: Yes Plan: Restoril nightly (6) Anxiety and depression Is this a current diagnosis for this admission?: Yes Plan: Denies any suicidal or homicidal ideation however mentions that he still feels depressed and thinks Zoloft is not enough. Has history of chronic anxiety and depression. Resume home meds. Continue duloxetine and Zoloft. Encouraged ambulation in the hallways. Outpatient PCP and psychiatry follow-up. - Time Time Spent with patient: Less than 15 minutes Medications reviewed and adjusted accordingly: Yes Anticipated discharge: Home Within: Other - 02/09/20
[2020-02-01] MEDS: TRAMADOL HCL 50 MG TABLET PO PRN (17:13)
[2020-02-01] MEDS: TEMAZEPAM 7.5 MG CAPSULE PO SCH (21:40)
[2020-02-02] MEDS: NAFCILLIN SODIUM 2 GM in DEXTROSE 5%-WATER 100 ML IV SCH ×6 (03:34→23:52)
[2020-02-02 03:52] LABS: HEMATOCRIT 39.6 % (37.9-51.0); HEMOGLOBIN 13.6 g/dL (13.5-17.0); MEAN CORPUSCULAR HEMOGLOBIN 30.2 pg (27.0-33.4); MEAN CORPUSCULAR HGB CONC 34.4 g/dL (32.0-36.0); MEAN CORPUSCULAR VOLUME 88 fl (80-97); PLATELET COUNT 174 10^3/uL (150-450); RED BLOOD COUNT 4.51 10^6/uL (4.35-5.55); WHITE BLOOD COUNT 5.3 10^3/uL (4.0-10.5)
[2020-02-02 04:04] LABS: ANION GAP 6 (5-19); BLOOD UREA NITROGEN 7 mg/dL (7-20); CALCIUM 9.3 mg/dL (8.4-10.2); CARBON DIOXIDE 30 mmol/L (22-30); CHLORIDE 104 mmol/L (98-107); GLUCOSE 84 mg/dL (75-110); POTASSIUM 3.8 mmol/L (3.6-5.0)
[2020-02-02] MEDS: OXYCODONE-ACETAMINOPHEN 5-325 MG TABLET PO PRN ×2 (08:36→20:41)
[2020-02-02] MEDS: NORMAL SALINE 10 ML SDV (SCHEDULED) IV SCH ×2 (10:21→21:34)
[2020-02-02] MEDS: CARISOPRODOL 350 MG TABLET PO SCH ×4 (10:21→21:34)
[2020-02-02] MEDS: BUSPIRONE HCL 10 MG TABLET PO SCH ×2 (10:21→21:34)
[2020-02-02] MEDS: DULOXETINE HCL 30 MG CAPSULE.DR PO SCH (10:21)
[2020-02-02] MEDS: SERTRALINE HCL 50 MG TABLET PO SCH (10:21)
[2020-02-02] MEDS: LIDOCAINE 5% (700 MG) TRANSDERMAL ADH..PATCH TP SCH (10:22)
--- NOTE | 2020-02-02 18:43 | PDOC PROGRESS REPORT ---
Subjective Progress Note for:: 02/02/20 Subjective:: CHRIS LONDON is a 24 year old male with a past medical history of IV heroin drug abuse who was admitted for MSSA bacteremia. Patient was seen on afternoon rounds. He was awake, resting in bed comfortably on room air. He has no questions or concerns. Reports back pain, requests medications; he is again encouraged to change positions, ambulate, and stretch. He is educated that the plan is to begin weaning from narcotics as he will not be prescribed them at discharge. He denies recent fevers, chills, chest pain, palpitations, dyspnea, abd pain, nausea and vomiting. He has no other questions or concerns at this time. No concerns per nursing. Reason For Visit: IV DRUG ABUSE,STAPH AUREUS BACTEREMIA Physical Exam Vital Signs: Temp Pulse Resp BP Pulse Ox 98.6 F 71 16 114/55 L 100 02/02/20 15:34 02/02/20 15:34 02/02/20 15:34 02/02/20 15:34 02/02/20 15:34 Intake & Output 02/01/20 02/02/20 02/03/20 06:59 06:59 06:59 Intake Total 2650 3694 356 Balance 2650 3694 356 Weight 97.7 kg 98.2 kg General appearance: PRESENT: no acute distress, well-developed, well-nourished - overweight Head exam: PRESENT: atraumatic, normocephalic Eye exam: PRESENT: conjunctiva pink, EOMI, PERRLA. ABSENT: scleral icterus Mouth exam: PRESENT: moist, tongue midline Respiratory exam: PRESENT: clear to auscultation brandon, symmetrical, unlabored. ABSENT: rales, rhonchi, wheezes Cardiovascular exam: PRESENT: RRR. ABSENT: diastolic murmur, rubs, systolic murmur Extremities exam: PRESENT: full ROM. ABSENT: calf tenderness, clubbing, pedal edema Musculoskeletal exam: PRESENT: ambulatory Neurological exam: PRESENT: alert, awake, oriented to person, oriented to place, oriented to time, oriented to situation, CN II-XII grossly intact. ABSENT: motor sensory deficit Psychiatric exam: PRESENT: appropriate affect, normal mood. ABSENT: homicidal ideation, suicidal ideation Skin exam: PRESENT: dry, intact, warm. ABSENT: cyanosis, rash Results Laboratory Results: 02/02/20 03:30 02/02/20 03:30 02/02/20 02/02/20 03:30 03:30 WBC 5.3 RBC 4.51 Hgb 13.6 Hct 39.6 MCV 88 MCH 30.2 MCHC 34.4 RDW 15.0 H Plt Count 174 Sodium 139.9 Potassium 3.8 Chloride 104 Carbon Dioxide 30 Anion Gap 6 BUN 7 Creatinine 0.80 Est GFR ( Amer) > 60 Glucose 84 Calcium 9.3 Impressions: Abdomen/Pelvis CT 01/05/20 22:33 IMPRESSION: No acute findings. Normal appendix. TECHNICAL DOCUMENTATION: Quality ID # 436: Final reports with documentation of one or more dose reduction techniques (e.g., Automated exposure control, adjustment of the mA and/or kV according to patient size, use of iterative reconstruction technique) copyright 2010 [employer]- All Rights Reserved Chest X-Ray 01/05/20 23:28 IMPRESSION: No acute cardiopulmonary abnormality copyright 2010 [employer]- All Rights Reserved PICC Line Insertion 01/14/20 08:00 IMPRESSION: SUCCESSFUL PLACEMENT OF A 5 FR DUAL LUMEN 39 CM PICC IN THE RIGHT BRACHIAL VEIN. Assessment and Plan - Diagnosis (1) Bacteremia Is this a current diagnosis for this admission?: Yes Plan: History of heroin abuse. Most likely source skin. Blood culture positive for MSSA 12/29/2019. Blood culture positive for MSSA 01/05/2020. Blood culture positive for MSSA 01/09/2020. Blood culture NGTD 01/11/2020. TTE/DENNIS negative for endocarditis. Lumbar MRI (11/19/2019, 12/29/2027) are both negative for osteomyelitis, discitis, psoas muscle abscess. Will need 4 weeks of IV antibiotics starting from last negative blood culture. Continue IV Nafcillin; EOT 02/08/[address] ID consulted. Recommendations noted. No changes to plan. (2) Endocarditis Is this a current diagnosis for this admission?: No Plan: Ruled out. Afebrile. TTE/DENNIS negative for endocarditis. Evaluation and management as above. (3) History of intravenous drug abuse Is this a current diagnosis for this admission?: Yes Plan: Supportive care Monitor for evidence of withdrawal. HIV negative Hepatitis positive for hepatitis C Last week, nursing reported possible medication diversion. Today, nursing reports that the patient began discussing "friends" that are known to our service for IVDU. Remain concerned that the patient is not receptive of need to discontinue IVDU. Have asked nursing to watch closely for signs of medication diversion. Outpatient GI referral for hep C treatment Discharge planning consulted (4) Back pain Qualifiers: Back pain location: low back pain Back pain laterality: left Sciatica presence: without sciatica Is this a current diagnosis for this admission?: Yes Plan: Continued complaint of back pain; of note, I have only ever seen the patient in bed (he does not change position, get out of bed, or ambulate as frequently as he has been encouraged) and does not utilize his non-narcotic medications to the degree they are available. He is informed today that the plan is to wean him off of oxycode as he will not receive a prescription at discharge. MRI (11/19/19 and 12/28/29) show L4-S1 mild DDD No acute/concerning findings. Nonpharmacological interventions Continue Soma Increase Cymbalta Start Mobic 7.5 mg Lidoderm patches Tylenol prn; oxycodone twice daily for severe pain Encourage ambulation. (5) Difficulty sleeping Is this a current diagnosis for this admission?: Yes Plan: Restoril nightly (6) Anxiety and depression Is this a current diagnosis for this admission?: Yes Plan: Denies any suicidal or homicidal ideation however mentions that he still feels depressed and thinks Zoloft is not enough. Has history of chronic anxiety and depression. Resume home meds. Continue duloxetine and Zoloft. Encouraged ambulation in the hallways. Outpatient PCP and psychiatry follow-up. - Time Time Spent with patient: 15-24 minutes Medications reviewed and adjusted accordingly: Yes Anticipated discharge: Home Within: Other - 02/09/20
[2020-02-02] MEDS: TEMAZEPAM 7.5 MG CAPSULE PO SCH (21:34)
[2020-02-02] MEDS: PHARMACY COMMUNICATION ORDER MC SCH (21:34)
[2020-02-03] MEDS: NAFCILLIN SODIUM 2 GM in DEXTROSE 5%-WATER 100 ML IV SCH ×6 (04:12→23:43)
[2020-02-03] MEDS: OXYCODONE-ACETAMINOPHEN 5-325 MG TABLET PO PRN (08:52)
[2020-02-03] MEDS: BUSPIRONE HCL 10 MG TABLET PO SCH ×2 (09:58→21:27)
[2020-02-03] MEDS: CARISOPRODOL 350 MG TABLET PO SCH ×4 (09:58→21:27)
[2020-02-03] MEDS: DULOXETINE HCL 30 MG CAPSULE.DR PO SCH (09:58)
[2020-02-03] MEDS: SERTRALINE HCL 50 MG TABLET PO SCH (09:58)
[2020-02-03] MEDS: NORMAL SALINE 10 ML SDV (AFTER EACH USE) IV PRN (10:00)
[2020-02-03] MEDS: NORMAL SALINE 10 ML SDV (SCHEDULED) IV SCH ×2 (10:00→21:27)
[2020-02-03] MEDS: MELOXICAM 7.5 MG TABLET PO SCH (10:00)
[2020-02-03] MEDS: LIDOCAINE 5% (700 MG) TRANSDERMAL ADH..PATCH TP SCH (10:00)
[2020-02-03] MEDS: METHADONE HCL 10 MG TABLET PO SCH (12:08)
[2020-02-03] MEDS ORDERED: DIPHENHYDRAMINE HCL 25 MG CAPSULE PO PRN (14:31)
--- NOTE | 2020-02-03 14:33 | PDOC PROGRESS REPORT ---
Subjective Progress Note for:: 02/03/20 Subjective:: CHRIS LONDON is a 24 year old male with a past medical history of IV heroin drug abuse who was admitted for MSSA bacteremia. Patient was seen on morning rounds. He was awake, resting in bed comfortably on room air. He asks to be started on methadone. He states that he intends to follow-up with a [facility] to continue methadone after discharge. He confides that he does not want to resort back to heroin following his discharge. He is informed that all other narcotic medications will be discontinued if we initiate methadone and that he will have to rely more on his available Tylenol, Lidoderm patches, and nonpharmacological interventions. Patient is agreeable. He denies recent fevers, chills, chest pain, palpitations, dyspnea, abd pain, nausea and vomiting. He has no other questions or concerns at this time. No concerns per nursing. Reason For Visit: IV DRUG ABUSE,STAPH AUREUS BACTEREMIA Physical Exam Vital Signs: Temp Pulse Resp BP Pulse Ox 97.4 F 63 16 113/57 L 100 02/03/20 07:37 02/03/20 07:37 02/03/20 07:37 02/03/20 07:37 02/03/20 07:37 Intake & Output 02/02/20 02/03/20 02/04/20 06:59 06:59 06:59 Intake Total 3694 1538 Balance 3694 1538 Weight 98.2 kg 98.2 kg General appearance: PRESENT: no acute distress, cooperative, well-developed, well-nourished - Overweight Head exam: PRESENT: atraumatic, normocephalic Eye exam: PRESENT: conjunctiva pink, EOMI, PERRLA. ABSENT: scleral icterus Mouth exam: PRESENT: moist, tongue midline Respiratory exam: PRESENT: clear to auscultation brandon. ABSENT: rales, rhonchi, wheezes Cardiovascular exam: PRESENT: RRR. ABSENT: diastolic murmur, rubs, systolic murmur Extremities exam: PRESENT: full ROM. ABSENT: calf tenderness, clubbing, pedal edema Musculoskeletal exam: PRESENT: ambulatory Neurological exam: PRESENT: alert, awake, oriented to person, oriented to place, oriented to time, oriented to situation, CN II-XII grossly intact. ABSENT: motor sensory deficit Psychiatric exam: PRESENT: appropriate affect, normal mood. ABSENT: homicidal ideation, suicidal ideation Results Laboratory Results: 02/02/20 03:30 02/02/20 03:30 Impressions: Abdomen/Pelvis CT 01/05/20 22:33 IMPRESSION: No acute findings. Normal appendix. TECHNICAL DOCUMENTATION: Quality ID # 436: Final reports with documentation of one or more dose reduction techniques (e.g., Automated exposure control, adjustment of the mA and/or kV according to patient size, use of iterative reconstruction technique) copyright 2010 [employer]- All Rights Reserved Chest X-Ray 01/05/20 23:28 IMPRESSION: No acute cardiopulmonary abnormality copyright 2010 [employer]- All Rights Reserved PICC Line Insertion 01/14/20 08:00 IMPRESSION: SUCCESSFUL PLACEMENT OF A 5 FR DUAL LUMEN 39 CM PICC IN THE RIGHT BRACHIAL VEIN. Assessment and Plan - Diagnosis (1) Bacteremia Is this a current diagnosis for this admission?: Yes Plan: History of heroin abuse. Most likely source skin. Blood culture positive for MSSA 12/29/2019. Blood culture positive for MSSA 01/05/2020. Blood culture positive for MSSA 01/09/2020. Blood culture NGTD 01/11/2020. TTE/DENNIS negative for endocarditis. Lumbar MRI (11/19/2019, 12/29/2027) are both negative for osteomyelitis, discitis, psoas muscle abscess. Will need 4 weeks of IV antibiotics starting from last negative blood culture. Continue IV Nafcillin; EOT 02/08/[address] ID consulted. Recommendations noted. No changes to plan. (2) Endocarditis Is this a current diagnosis for this admission?: No Plan: Ruled out. Afebrile. TTE/DENNIS negative for endocarditis. Evaluation and management as above. (3) History of intravenous drug abuse Is this a current diagnosis for this admission?: Yes Plan: Supportive care Monitor for evidence of withdrawal. HIV negative Hepatitis positive for hepatitis C Have asked nursing to watch closely for signs of medication diversion. Start methadone 5 mg once daily; patient states that he intends to follow-up with methadone clinic upon discharge. Outpatient GI referral for hep C treatment Discharge planning consulted (4) Back pain Qualifiers: Back pain location: low back pain Back pain laterality: left Sciatica presence: without sciatica Is this a current diagnosis for this admission?: Yes Plan: Continued complaint of back pain; of note, I have only ever seen the patient in bed (he does not change position, get out of bed, or ambulate as frequently as h e has been encouraged) and does not utilize his non-narcotic medications to the degree they are available. He is informed today that the plan is to wean him off of oxycode as he will not receive a prescription at discharge. MRI (11/19/19 and 12/28/29) show L4-S1 mild DDD No acute/concerning findings. Nonpharmacological interventions Methadone 5 mg daily Continue Soma Cymbalta 60 mg daily Start Mobic 7.5 mg Lidoderm patches Tylenol prn Encourage ambulation. (5) Difficulty sleeping Is this a current diagnosis for this admission?: Yes Plan: Encourage good sleep hygiene; encourage daily ambulation. Encourage patient over windows during the day. Keep lights on. Avoid sedating medications and benzodiazepines. Benadryl nightly as needed. (6) Anxiety and depression Is this a current diagnosis for this admission?: Yes Plan: Denies any suicidal or homicidal ideation however mentions that he still feels depressed and thinks Zoloft is not enough. Has history of chronic anxiety and depression. Resume home meds. Continue duloxetine and Zoloft. Encouraged ambulation in the hallways. Outpatient PCP and psychiatry follow-up. - Time Time Spent with patient: 25-34 minutes Medications reviewed and adjusted accordingly: Yes Anticipated discharge: Home
[2020-02-03] MEDS: PHARMACY COMMUNICATION ORDER MC SCH (21:26)
[2020-02-04] MEDS: NAFCILLIN SODIUM 2 GM in DEXTROSE 5%-WATER 100 ML IV SCH ×5 (03:18→21:03)
[2020-02-04] MEDS: CARISOPRODOL 350 MG TABLET PO SCH ×4 (10:03→21:03)
[2020-02-04] MEDS: DULOXETINE HCL 30 MG CAPSULE.DR PO SCH (10:03)
[2020-02-04] MEDS: SERTRALINE HCL 50 MG TABLET PO SCH (10:03)
[2020-02-04] MEDS: METHADONE HCL 10 MG TABLET PO SCH (10:03)
[2020-02-04] MEDS: BUSPIRONE HCL 10 MG TABLET PO SCH ×2 (10:03→21:03)
[2020-02-04] MEDS: MELOXICAM 7.5 MG TABLET PO SCH (10:04)
[2020-02-04] MEDS: NORMAL SALINE 10 ML SDV (SCHEDULED) IV SCH ×2 (10:04→21:04)
[2020-02-04] MEDS: LIDOCAINE 5% (700 MG) TRANSDERMAL ADH..PATCH TP SCH (10:04)
--- NOTE | 2020-02-04 10:53 | PDOC PROGRESS REPORT ---
Subjective Progress Note for:: 02/04/20 Subjective:: No adverse events overnight. No new complaints. Vital signs been stable. Eating and drinking without difficulty. No fevers. Reason For Visit: IV DRUG ABUSE,STAPH AUREUS BACTEREMIA Physical Exam Vital Signs: Temp Pulse Resp BP Pulse Ox 97.8 F 74 12 123/60 100 02/04/20 08:00 02/04/20 08:00 02/04/20 08:00 02/04/20 08:00 02/04/20 08:00 Intake & Output 02/03/20 02/04/20 02/05/20 06:59 06:59 06:59 Intake Total 1538 750 Balance 1538 750 Weight 98.2 kg 98.2 kg General appearance: PRESENT: no acute distress, cooperative, disheveled Respiratory exam: PRESENT: clear to auscultation brandon, symmetrical, unlabored. ABSENT: accessory muscle use, chest wall tenderness, crackles, prolonged expiratory phas, rhonchi, tachypnea, wheezes Cardiovascular exam: PRESENT: RRR, +S1, +S2 Pulses: PRESENT: normal carotid pulses Vascular exam: PRESENT: normal capillary refill GI/Abdominal exam: PRESENT: normal bowel sounds, soft. ABSENT: distended, guarding, rebound, tenderness Extremities exam: ABSENT: clubbing, pedal edema Musculoskeletal exam: PRESENT: normal inspection. ABSENT: deformity Neurological exam: PRESENT: alert, awake, oriented to person, oriented to place, oriented to situation Psychiatric exam: PRESENT: appropriate affect, normal mood Skin exam: PRESENT: dry, warm Results Laboratory Results: 02/02/20 03:30 02/02/20 03:30 Impressions: Abdomen/Pelvis CT 01/05/20 22:33 IMPRESSION: No acute findings. Normal appendix. TECHNICAL DOCUMENTATION: Quality ID # [id number]: Final reports with documentation of one or more dose reduction techniques (e.g., Automated exposure control, adjustment of the mA and/or kV according to patient size, use of iterative reconstruction technique) copyright 2010 [employer]- All Rights Reserved Chest X-Ray 01/05/20 23:28 IMPRESSION: No acute cardiopulmonary abnormality copyright 2010 [employer]- All Rights Reserved PICC Line Insertion 01/14/20 08:00 IMPRESSION: SUCCESSFUL PLACEMENT OF A 5 FR DUAL LUMEN 39 CM PICC IN THE RIGHT BRACHIAL VEIN. Assessment and Plan - Diagnosis (1) Bacteremia Is this a current diagnosis for this admission?: Yes Plan: Due to MSSA. He continues antibiotics through the . (2) Endocarditis Qualifiers: Endocarditis type: infective Infective endocarditis organism: bacterial Chronicity: acute Qualified Code(s): I33.0 - Acute and subacute infective endocarditis Is this a current diagnosis for this admission?: Yes Plan: Due to MSSA. Antibiotics through the . (3) Anxiety and depression Is this a current diagnosis for this admission?: Yes Plan: Denies any suicidal or homicidal. Has history of chronic anxiety and depression. Resume home meds. Continue duloxetine and Zoloft. Encouraged ambulation in the hallways. Outpatient PCP and psychiatry follow-up. (4) Back pain Qualifiers: Back pain location: low back pain Back pain laterality: left Sciatica pre sence: without sciatica Is this a current diagnosis for this admission?: Yes Plan: MRI (11/19/19 and 12/28/29) show L4-S1 mild DDD No acute/concerning findings. Nonpharmacological interventions Methadone 5 mg daily Continue Soma Cymbalta 60 mg daily Start Mobic 7.5 mg Lidoderm patches Tylenol prn Encourage ambulation. (5) Difficulty sleeping Is this a current diagnosis for this admission?: Yes Plan: Encourage good sleep hygiene; encourage daily ambulation. Encourage patient over windows during the day. Keep lights on. Avoid sedating medications and benzodiazepines. Benadryl nightly as needed. (6) History of intravenous drug abuse Is this a current diagnosis for this admission?: Yes Plan: Supportive care Monitor for evidence of withdrawal. HIV negative Hepatitis positive for hepatitis C Have asked nursing to watch closely for signs of medication diversion. Start methadone 5 mg once daily; patient states that he intends to follow-up with methadone clinic upon discharge. Outpatient GI referral for hep C treatment Discharge planning consulted - Time Time Spent with patient: 15-24 minutes
[2020-02-04] MEDS: ACETAMINOPHEN 325 MG TABLET PO PRN (18:37)
[2020-02-04] MEDS: PHARMACY COMMUNICATION ORDER MC SCH (21:04)
[2020-02-05] MEDS: NAFCILLIN SODIUM 2 GM in DEXTROSE 5%-WATER 100 ML IV SCH ×6 (01:45→21:05)
[2020-02-05] MEDS: MELOXICAM 7.5 MG TABLET PO SCH (09:42)
[2020-02-05] MEDS: DULOXETINE HCL 30 MG CAPSULE.DR PO SCH (09:43)
[2020-02-05] MEDS: SERTRALINE HCL 50 MG TABLET PO SCH (09:43)
[2020-02-05] MEDS: METHADONE HCL 10 MG TABLET PO SCH (09:43)
[2020-02-05] MEDS: CARISOPRODOL 350 MG TABLET PO SCH ×4 (09:43→21:06)
[2020-02-05] MEDS: LIDOCAINE 5% (700 MG) TRANSDERMAL ADH..PATCH TP SCH (09:44)
[2020-02-05] MEDS: BUSPIRONE HCL 10 MG TABLET PO SCH ×2 (09:44→21:06)
[2020-02-05] MEDS: NORMAL SALINE 10 ML SDV (SCHEDULED) IV SCH ×2 (09:44→21:06)
--- NOTE | 2020-02-05 12:55 | PDOC PROGRESS REPORT ---
Subjective Progress Note for:: 02/05/20 Subjective:: No adverse events overnight. No new complaints. Vital signs been stable. Eating and drinking without difficulty. No fevers. Reason For Visit: IV DRUG ABUSE,STAPH AUREUS BACTEREMIA Physical Exam Vital Signs: Temp Pulse Resp BP Pulse Ox 98.0 F 82 16 112/54 L 100 02/05/20 12:00 02/05/20 12:00 02/05/20 12:00 02/05/20 12:00 02/05/20 12:00 Intake & Output 02/04/20 02/05/20 02/06/20 06:59 06:59 06:59 Intake Total 750 2619 1000 Balance 750 2619 1000 Weight 98.2 kg 98.2 kg General appearance: PRESENT: no acute distress, cooperative, disheveled Respiratory exam: PRESENT: clear to auscultation brandon, symmetrical, unlabored. ABSENT: accessory muscle use, chest wall tenderness, crackles, prolonged expiratory phas, rhonchi, tachypnea, wheezes Cardiovascular exam: PRESENT: RRR, +S1, +S2 Pulses: PRESENT: normal carotid pulses Vascular exam: PRESENT: normal capillary refill GI/Abdominal exam: PRESENT: normal bowel sounds, soft. ABSENT: distended, guarding, rebound, tenderness Extremities exam: ABSENT: clubbing, pedal edema Musculoskeletal exam: PRESENT: normal inspection. ABSENT: deformity Neurological exam: PRESENT: alert, awake, oriented to person, oriented to place, oriented to situation Psychiatric exam: PRESENT: appropriate affect, normal mood Skin exam: PRESENT: dry, warm Results Laboratory Results: 02/02/20 03:30 02/02/20 03:30 Impressions: Abdomen/Pelvis CT 01/05/20 22:33 IMPRESSION: No acute findings. Normal appendix. TECHNICAL DOCUMENTATION: Quality ID # 436: Final reports with documentation of one or more dose reduction techniques (e.g., Automated exposure control, adjustment of the mA and/or kV according to patient size, use of iterative reconstruction technique) copyright 2010 [employer]- All Rights Reserved Chest X-Ray 01/05/20 23:28 IMPRESSION: No acute cardiopulmonary abnormality copyright 2010 [employer]- All Rights Reserved PICC Line Insertion 01/14/20 08:00 IMPRESSION: SUCCESSFUL PLACEMENT OF A 5 FR DUAL LUMEN 39 CM PICC IN THE RIGHT BRACHIAL VEIN. Assessment and Plan - Diagnosis (1) Bacteremia Is this a current diagnosis for this admission?: Yes Plan: Due to MSSA. He continues antibiotics through the . (2) Endocarditis Qualifiers: Endocarditis type: infective Infective endocarditis organism: bacterial Chronicity: acute Qualified Code(s): I33.0 - Acute and subacute infective endocarditis Is this a current diagnosis for this admission?: Yes Plan: Due to MSSA. Antibiotics through the . (3) Anxiety and depression Is this a current diagnosis for this admission?: Yes Plan: Denies any suicidal or homicidal. Has history of chronic anxiety and depression. Resume home meds. Continue duloxetine and Zoloft. Encouraged ambulation in the hallways. Outpatient PCP and psychiatry follow-up. (4) Back pain Qualifiers: Back pain location: low back pain Back pain laterality: left Sciatica presence: without sciatica Is this a current diagnosis for this admission?: Yes Plan: MRI (11/19/19 and 12/28/29) show L4-S1 mild DDD No acute/concerning findings. Nonpharmacological interventions Methadone 5 mg daily Continue Soma Cymbalta 60 mg daily Start Mobic 7.5 mg Lidoderm patches Tylenol prn Encourage ambulation. (5) Difficulty sleeping Is this a current diagnosis for this admission?: Yes Plan: Encourage good sleep hygiene; encourage daily ambulation. Encourage patient over windows during the day. Keep lights on. Avoid sedating medications and benzodiazepines. Benadryl nightly as needed. (6) History of intravenous drug abuse Is this a current diagnosis for this admission?: Yes Plan: Supportive care Monitor for evidence of withdrawal. HIV negative Hepatitis positive for hepatitis C Have asked nursing to watch closely for signs of medication diversion. Start methadone 5 mg once daily; patient states that he intends to follow-up with methadone clinic upon discharge. Outpatient GI referral for hep C treatment Discharge planning consulted - Time Time Spent with patient: 15-24 minutes
[2020-02-05] MEDS: PHARMACY COMMUNICATION ORDER MC SCH (21:06)
[2020-02-06] MEDS: NAFCILLIN SODIUM 2 GM in DEXTROSE 5%-WATER 100 ML IV SCH ×6 (02:31→21:11)
[2020-02-06] MEDS: DULOXETINE HCL 30 MG CAPSULE.DR PO SCH (09:05)
[2020-02-06] MEDS: SERTRALINE HCL 50 MG TABLET PO SCH (09:05)
[2020-02-06] MEDS: BUSPIRONE HCL 10 MG TABLET PO SCH ×2 (09:06→21:11)
[2020-02-06] MEDS: METHADONE HCL 10 MG TABLET PO SCH (09:06)
[2020-02-06] MEDS: CARISOPRODOL 350 MG TABLET PO SCH ×4 (09:06→21:11)
[2020-02-06] MEDS: MELOXICAM 7.5 MG TABLET PO SCH (09:06)
[2020-02-06] MEDS: NORMAL SALINE 10 ML SDV (SCHEDULED) IV SCH ×2 (09:07→21:12)
--- NOTE | 2020-02-06 16:59 | PDOC PROGRESS REPORT ---
Subjective Progress Note for:: 02/06/20 Subjective:: No adverse events overnight. No new complaints. Vital signs been stable. Eating and drinking without difficulty. No fevers. Reason For Visit: IV DRUG ABUSE,STAPH AUREUS BACTEREMIA Physical Exam Vital Signs: Temp Pulse Resp BP Pulse Ox 98.4 F 75 15 117/62 99 02/06/20 16:02 02/06/20 16:02 02/06/20 16:02 02/06/20 16:02 02/06/20 16:02 Intake & Output 02/05/20 02/06/20 02/07/20 06:59 06:59 06:59 Intake Total 2619 1600 580 Balance 2619 1600 580 Weight 98.2 kg 98.2 kg General appearance: PRESENT: no acute distress, cooperative, disheveled Respiratory exam: PRESENT: clear to auscultation brandon, symmetrical, unlabored. ABSENT: accessory muscle use, chest wall tenderness, crackles, prolonged expiratory phas, rhonchi, tachypnea, wheezes Cardiovascular exam: PRESENT: RRR, +S1, +S2 Pulses: PRESENT: normal carotid pulses Vascular exam: PRESENT: normal capillary refill GI/Abdominal exam: PRESENT: normal bowel sounds, soft. ABSENT: distended, guarding, rebound, tenderness Extremities exam: ABSENT: clubbing, pedal edema Musculoskeletal exam: PRESENT: normal inspection. ABSENT: deformity Neurological exam: PRESENT: alert, awake, oriented to person, oriented to place, oriented to situation Psychiatric exam: PRESENT: appropriate affect, normal mood Skin exam: PRESENT: dry, warm Results Laboratory Results: 02/02/20 03:30 02/02/20 03:30 Impressions: Abdomen/Pelvis CT 01/05/20 22:33 IMPRESSION: No acute findings. Normal appendix. TECHNICAL DOCUMENTATION: Quality ID # 436: Final reports with documentation of one or more dose reduction techniques (e.g., Automated exposure control, adjustment of the mA and/or kV according to patient size, use of iterative reconstruction technique) copyright 2010 [id number]- All Rights Reserved Chest X-Ray 01/05/20 23:28 IMPRESSION: No acute cardiopulmonary abnormality copyright 2010 [id number]- All Rights Reserved PICC Line Insertion 01/14/20 08:00 IMPRESSION: SUCCESSFUL PLACEMENT OF A 5 FR DUAL LUMEN 39 CM PICC IN THE RIGHT BRACHIAL VEIN. Assessment and Plan - Diagnosis (1) Bacteremia Is this a current diagnosis for this admission?: Yes Plan: Due to MSSA. He continues antibiotics through the . (2) Endocarditis Qualifiers: Endocarditis type: infective Infective endocarditis organism: bacterial Chronicity: acute Qualified Code(s): I33.0 - Acute and subacute infective endocarditis Is this a current diagnosis for this admission?: Yes Plan: Due to MSSA. Antibiotics through the . (3) Anxiety and depression Is this a current diagnosis for this admission?: Yes Plan: Denies any suicidal or homicidal. Has history of chronic anxiety and depression. Resume home meds. Continue duloxetine and Zoloft. Encouraged ambulation in the hallways. Outpatient PCP and psychiatry follow-up. (4) Back pain Qualifiers: Back pain location: low back pain Back pain laterality: left Sciatica presence: without sciatica Is this a current diagnosis for this admission?: Yes Plan: MRI (11/19/19 and 12/28/29) show L4-S1 mild DDD No acute/concerning findings. Nonpharmacological interventions Methadone 5 mg daily Continue Soma Cymbalta 60 mg daily Start Mobic 7.5 mg Lidoderm patches Tylenol prn Encourage ambulation. (5) Difficulty sleeping Is this a current diagnosis for this admission?: Yes Plan: Encourage good sleep hygiene; encourage daily ambulation. Encourage patient over windows during the day. Keep lights on. Avoid sedating medications and benzodiazepines. Benadryl nightly as needed. (6) History of intravenous drug abuse Is this a current diagnosis for this admission?: Yes Plan: Supportive care Monitor for evidence of withdrawal. HIV negative Hepatitis positive for hepatitis C Have asked nursing to watch closely for signs of medication diversion. Start methadone 5 mg once daily; patient states that he intends to follow-up with methadone clinic upon discharge. Outpatient GI referral for hep C treatment Discharge planning consulted - Time Time Spent with patient: 15-24 minutes
[2020-02-06] MEDS: PHARMACY COMMUNICATION ORDER MC SCH (21:11)
[2020-02-07] MEDS: NAFCILLIN SODIUM 2 GM in DEXTROSE 5%-WATER 100 ML IV SCH ×7 (00:14→23:03)
[2020-02-07] MEDS: METHADONE HCL 10 MG TABLET PO SCH (10:19)
[2020-02-07] MEDS: BUSPIRONE HCL 10 MG TABLET PO SCH ×2 (10:21→23:03)
[2020-02-07] MEDS: SERTRALINE HCL 50 MG TABLET PO SCH (10:21)
[2020-02-07] MEDS: DULOXETINE HCL 30 MG CAPSULE.DR PO SCH (10:21)
[2020-02-07] MEDS: MELOXICAM 7.5 MG TABLET PO SCH (10:22)
[2020-02-07] MEDS: CARISOPRODOL 350 MG TABLET PO SCH ×4 (10:22→23:03)
[2020-02-07] MEDS: NORMAL SALINE 10 ML SDV (SCHEDULED) IV SCH ×2 (10:23→23:04)
--- NOTE | 2020-02-07 18:39 | PDOC PROGRESS REPORT ---
Subjective Progress Note for:: 02/07/20 Subjective:: CHRIS LONDON is a 24 year old male with a past medical history of IV heroin drug abuse who was admitted for MSSA bacteremia. Patient was seen on morning rounds. He was noted to be ambulating in the hallways and again in his room. He asks about following up with the [facility] for methadone following his discharge. He is provided the phone number to the [facility] and instructed to call them today to begin his intake interview with the counselor so that he may have a smooth transition to their clinic upon discharge. He denies recent fevers, chills, chest pain, palpitations, dyspnea, abd pain, nausea and vomiting. He has no other questions or concerns at this time. No concerns per nursing. Reason For Visit: IV DRUG ABUSE,STAPH AUREUS BACTEREMIA Physical Exam Vital Signs: Temp Pulse Resp BP Pulse Ox 98.1 F 78 16 115/55 L 100 02/07/20 15:18 02/07/20 15:18 02/07/20 15:18 02/07/20 15:18 02/07/20 15:18 Intake & Output 02/06/20 02/07/20 02/08/20 06:59 06:59 06:59 Intake Total 1600 2571 788 Balance 1600 2571 788 Weight 98.2 kg 100.6 kg General appearance: PRESENT: no acute distress, well-developed, well-nourished Head exam: PRESENT: atraumatic, normocephalic Eye exam: PRESENT: conjunctiva pink, EOMI, PERRLA. ABSENT: scleral icterus Mouth exam: PRESENT: moist, tongue midline Respiratory exam: PRESENT: clear to auscultation brandon, symmetrical, unlabored. ABSENT: rales, rhonchi, wheezes Cardiovascular exam: PRESENT: RRR. ABSENT: diastolic murmur, rubs, systolic murmur Vascular exam: PRESENT: normal capillary refill Extremities exam: PRESENT: full ROM. ABSENT: calf tenderness, clubbing, pedal edema Musculoskeletal exam: PRESENT: ambulatory Neurological exam: PRESENT: alert, awake, oriented to person, oriented to place, oriented to time, oriented to situation, CN II-XII grossly intact. ABSENT: motor sensory deficit Psychiatric exam: PRESENT: appropriate affect, normal mood. ABSENT: homicidal ideation, suicidal ideation Skin exam: PRESENT: dry, intact, warm. ABSENT: cyanosis, rash Results Laboratory Results: 02/02/20 03:30 02/02/20 03:30 Impressions: Abdomen/Pelvis CT 01/05/20 22:33 IMPRESSION: No acute findings. Normal appendix. TECHNICAL DOCUMENTATION: Quality ID # [id number]: Final reports with documentation of one or more dose reduction techniques (e.g., Automated exposure control, adjustment of the mA and/or kV according to patient size, use of iterative reconstruction technique) copyright 2010 [employer]- All Rights Reserved Chest X-Ray 01/05/20 23:28 IMPRESSION: No acute cardiopulmonary abnormality copyright 2010 [employer]- All Rights Reserved PICC Line Insertion 01/14/20 08:00 IMPRESSION: SUCCESSFUL PLACEMENT OF A 5 FR DUAL LUMEN 39 CM PICC IN THE RIGHT BRACHIAL VEIN. Assessment and Plan - Diagnosis (1) Bacteremia Is this a current diagnosis for this admission?: Yes Plan: History of heroin abuse. Most likely source skin. Blood culture positive for MSSA 12/29/2019. Blood culture positive for MSSA 01/05/2020. Blood culture positive for MSSA 01/09/2020. Blood culture NGTD 01/11/2020. TTE/DENNIS negative for endocarditis. Lumbar MRI (11/19/2019, 12/29/2027) are both negative for osteomyelitis, discitis, psoas muscle abscess. Will need 4 weeks of IV antibiotics starting from last negative blood culture. Continue IV Nafcillin; EOT 02/08/[address] ID consulted. Recommendations noted. No changes to plan. (2) Endocarditis Qualifiers: Endocarditis type: infective Infective endocarditis organism: bacterial Chronicity: acute Qualified Code(s): I33.0 - Acute and subacute infective endocarditis Is this a current diagnosis for this admission?: Yes Plan: Ruled out. Afebrile. TTE/DENNIS negative for endocarditis. Evaluation and management as above. (3) History of intravenous drug abuse Is this a current diagnosis for this admission?: Yes Plan: Supportive care Monitor for evidence of withdrawal. HIV negative Hepatitis positive for hepatitis C Have asked nursing to watch closely for signs of medication diversion. Continue methadone 5 mg once daily. He is provided the phone number to the [facility] screening counselor and instructed to call them today. Outpatient GI referral for hep C treatment Discharge planning consulted (4) Back pain Qualifiers: Back pain location: low back pain Back pain laterality: left Sciatica presence: without sciatica Is this a current diagnosis for this admission?: Yes Plan: MRI (11/19/19 and 12/28/29) show L4-S1 mild DDD No acute/concerning findings. Nonpharmacological interventions Methadone 5 mg daily Continue Soma Cymbalta 60 mg daily Mobic 7.5 mg Lidoderm patches Tylenol prn Encourage ambulation. (5) Difficulty sleeping Is this a current diagnosis for this admission?: Yes Plan: Encourage good sleep hygiene; encourage daily ambulation. Encourage patient over windows during the day. Keep lights on. Avoid sedating medications and benzodiazepines. Benadryl nightly as needed. (6) Anxiety and depression Is this a current diagnosis for this admission?: Yes Plan: Denies any suicidal or homicidal. Has history of chronic anxiety and depression. Resume home meds. Continue duloxetine and Zoloft. Encouraged ambulation in the hallways. Outpatient PCP and psychiatry follow-up. - Time Time Spent with patient: 15-24 minutes Medications reviewed and adjusted accordingly: Yes Anticipated discharge: Home Within: within 48 hours
[2020-02-07] MEDS: PHARMACY COMMUNICATION ORDER MC SCH (23:03)
[2020-02-08] MEDS: NAFCILLIN SODIUM 2 GM in DEXTROSE 5%-WATER 100 ML IV SCH ×4 (05:30→16:20)
[2020-02-08] MEDS: METHADONE HCL 10 MG TABLET PO SCH (09:45)
[2020-02-08] MEDS: SERTRALINE HCL 50 MG TABLET PO SCH (09:48)
[2020-02-08] MEDS: BUSPIRONE HCL 10 MG TABLET PO SCH (09:48)
[2020-02-08] MEDS: DULOXETINE HCL 30 MG CAPSULE.DR PO SCH (09:48)
[2020-02-08] MEDS: CARISOPRODOL 350 MG TABLET PO SCH ×2 (09:48→16:20)
[2020-02-08] MEDS: NORMAL SALINE 10 ML SDV (SCHEDULED) IV SCH (09:49)
[2020-02-08] MEDS: MELOXICAM 7.5 MG TABLET PO SCH (09:52)
[2020-02-08 12:32] VITALS: BP 122/84
--- NOTE | 2020-02-08 16:27 | PDOC DISCHARGE SUMMARY ---
Impression - Admit/DC Date/PCP Admission Date/Primary Care Provider: 01/06/20 03:36 Discharge Date: 02/08/20 - Discharge Diagnosis (1) Bacteremia Is this a current diagnosis for this admission?: Yes (2) Anxiety and depression Is this a current diagnosis for this admission?: Yes (3) Back pain Is this a current diagnosis for this admission?: Yes (4) Difficulty sleeping Is this a current diagnosis for this admission?: Yes (5) History of intravenous drug abuse Is this a current diagnosis for this admission?: Yes - Additional Information Resuscitation Status: Full Code Discharge Diet: Regular Discharge Activity: Activity As Tolerated, Balance Activity w/Rest Referrals: [facility] [Outside] (Patient will need to call clinic and establish care and clinic staff will schedule a tele health appt. date/time.) Prescriptions: Buspirone HCl [Buspar 10 mg Tablet] 10 mg PO Q12 #60 tablet Sertraline HCl [Zoloft 50 mg Tablet] 50 mg PO DAILY #30 tablet Home Medications: Acetaminophen [Tylenol] 650 mg PO Q6HP PRN #0 02/08/20 Buspirone HCl [Buspar 10 mg Tablet] 10 mg PO Q12 #60 tablet 02/08/20 Ibuprofen 400 mg PO Q6HP PRN #0 02/08/20 Sertraline HCl [Zoloft 50 mg Tablet] 50 mg PO DAILY #30 tablet 02/08/20 History of Present Illiness History of Present Illness: According to admitting provider: CHRIS LONDON is a 24 year old male with a past medical history of IV heroin drug abuse. He presents 7 days after an ER visit work-up for abdominal and back pain. He was summons to return to the emergency department for positive blood cultures with non-MRSA staph aureus. He is found to have hypotension, tachycardia, subjective fever, leukocytosis but an otherwise unremarkable work-up. He received Zosyn and referred to the hospitalist for admission. He denies previous history of endocarditis. Hospital Course Hospital Course: Patient was admitted to the hospital for evaluation of abdominal and back pain. Abdominal/pelvic CT obtained on presentation was normal. Blood cultures that were obtained in the ER were positive for MSSA. Infectious disease was consulted who recommended DENNIS. DENNIS showed no involvement of the valves. As such endocarditis was ruled out. Patient was continued on nafcillin for the duration of 4 weeks as recommended by ID. Today completes 4 weeks of therapy. ESR is now down to 16 and CRP is 16 at the time of discharge. During patient's hospitalization, patient was also treated for anxiety, depression and opioid withdrawal. He was put on methadone 5 mg daily while in the hospital. I will be discharging patient on Zoloft and buspirone for his anxiety and have referred patient to a treatment center for rehabilitation as well as a methadone clinic for evaluation for therapy. Physical Exam Vital Signs: Temp Pulse Resp BP Pulse Ox 97.8 F 65 16 122/84 97 02/08/20 12:22 02/08/20 12:22 02/08/20 12:22 02/08/20 12:22 02/08/20 12:22 Intake & Output 02/07/20 02/08/20 02/09/20 06:59 06:59 06:59 Intake Total 2571 1779 500 Balance 2571 1779 500 Weight 100.6 kg 100.6 kg General appearance: PRESENT: no acute distress, cooperative Respiratory exam: PRESENT: symmetrical, unlabored Cardiovascular exam: PRESENT: +S1, +S2 GI/Abdominal exam: PRESENT: soft. ABSENT: tenderness Neurological exam: PRESENT: alert, awake, oriented to person, oriented to place, oriented to time Results Laboratory Results: WBC 5.3 10^3/uL (4.0-10.5) 02/02/20 03:30 RBC 4.51 10^6/uL (4.35-5.55) 02/02/20 03:30 Hgb 13.6 g/dL (13.5-17.0) 02/02/20 03:30 Hct 39.6 % (37.9-51.0) 02/02/20 03:30 MCV 88 fl (80-97) 02/02/20 03:30 MCH 30.2 pg (27.0-33.4) 02/02/20 03:30 MCHC 34.4 g/dL (32.0-36.0) 02/02/20 03:30 RDW 15.0 % (11.5-14.0) H 02/02/20 03:30 Plt Count 174 10^3/uL (150-450) 02/02/20 03:30 Lymph % (Auto) 26.6 % (13-45) 01/07/20 06:09 Kings % (Auto) 11.1 % (3-13) 01/07/20 06:09 Eos % (Auto) 0.7 % (0-6) 01/07/20 06:09 Baso % (Auto) 0.6 % (0-2) 01/07/20 06:09 Absolute Neuts (auto) 5.2 10^3/uL (1.7-8.2) 01/07/20 06:09 Absolute Lymphs (auto) 2.3 10^3/uL (0.5-4.7) 01/07/20 06:09 Absolute Monos (auto) 0.9 10^3/uL (0.1-1.4) 01/07/20 06:09 Absolute Eos (auto) 0.1 10^3/uL (0.0-0.6) 01/07/20 06:09 Absolute Basos (auto) 0.1 10^3/uL (0.0-0.2) 01/07/20 06:09 Seg Neutrophils % 61.0 % (42-78) 01/07/20 06:09 ESR 16 mm/hr (0-15) H 02/08/20 13:05 PT 14.6 SEC (11.4-15.4) 01/05/20 23:04 INR 1.13 01/05/20 23:04 Sodium 139.9 mmol/L (137-145) 02/02/20 03:30 Potassium 3.8 mmol/L (3.6-5.0) 02/02/20 03:30 Chloride 104 mmol/L (98-107) 02/02/20 03:30 Carbon Dioxide 30 mmol/L (22-30) 02/02/20 03:30 Anion Gap 6 (5-19) 02/02/20 03:30 BUN 7 mg/dL (7-20) 02/02/20 03:30 Creatinine 0.80 mg/dL (0.52-1.25) 02/02/20 03:30 Est GFR ( Amer) > 60 (>60) 02/02/20 03:30 Est GFR (MDRD) Non-Af > 60 (>60) 02/02/20 03:30 Glucose 84 mg/dL (75-110) 02/02/20 03:30 POC Glucose 102 mg/dL (70-110) 01/05/20 23:21 Lactic Acid 0.5 mmol/L (0.7-2.1) L 01/06/20 04:42 Calcium 9.3 mg/dL (8.4-10.2) 02/02/20 03:30 Total Bilirubin 1.1 mg/dL (0.2-1.3) 01/05/20 23:04 Direct Bilirubin 0.1 mg/dL (0.0-0.4) 01/05/20 23:04 Neonat Total Bilirubin Not Reportable 01/05/20 23:04 Neonat Direct Bilirubin Not Reportable 01/05/20 23:04 Neonat Indirect Bili Not Reportable 01/05/20 23:04 AST 39 U/L (17-59) 01/05/20 23:04 ALT 68 U/L (<50) H 01/05/20 23:04 Alkaline Phosphatase 89 U/L (38-126) 01/05/20 23:04 C-Reactive Protein 16.1 mg/L (<10.0) H 02/08/20 13:05 Total Protein 8.3 g/dL (6.3-8.2) H 01/05/20 23:04 Albumin 4.5 g/dL (3.5-5.0) 01/05/20 23:04 Urine Color YELLOW 01/06/20 02:01 Urine Appearance CLEAR 01/06/20 02:01 Urine pH 6.0 (5.0-9.0) 01/06/20 02:01 Ur Specific Isom 1.048 01/06/20 02:01 Urine Protein NEGATIVE mg/dL (NEGATIVE) 01/06/20 02:01 Urine Glucose (UA) NEGATIVE mg/dL (NEGATIVE) 01/06/20 02:01 Urine Ketones NEGATIVE mg/dL (NEGATIVE) 01/06/20 02:01 Urine Blood NEGATIVE (NEGATIVE) 01/06/20 02:01 Urine Nitrite (Reflex) NEGATIVE (NEGATIVE) 01/06/20 02:01 Urine Bilirubin NEGATIVE (NEGATIVE) 01/06/20 02:01 Urine Urobilinogen NEGATIVE mg/dL (<2.0) 01/06/20 02:01 Leukocyte Esterase Rfl NEGATIVE (NEGATIVE) 01/06/20 02:01 Urine RBC (Auto) 0 /HPF 01/06/20 02:01 Urine WBC (Reflex) 1 /HPF 01/06/20 02:01 Urine Ascorbic Acid NEGATIVE (NEGATIVE) 01/06/20 02:01 Urine Opiates Screen NEGATIVE 01/06/20 02:01 Urine Methadone Screen NEGATIVE 01/06/20 02:01 Ur Barbiturates Screen NEGATIVE 01/06/20 02:01 Ur Phencyclidine Scrn NEGATIVE 01/06/20 02:01 Ur Amphetamines Screen NEGATIVE 01/06/20 02:01 U Benzodiazepines Scrn NEGATIVE 01/06/20 02:01 Urine Cocaine Screen NEGATIVE 01/06/20 02:01 U Marijuana (THC) Screen NEGATIVE 01/06/20 02:01 Serum Alcohol < 10 mg/dL (NONE DETECTED) 01/05/20 23:04 Hepatitis A IgM Ab Negative (Negative) 01/06/20 08:18 Hep Bs Antigen Negative (Negative) 01/06/20 08:18 Hep B Core IgM Ab Negative (Negative) 01/06/20 08:18 Hepatitis C Antibody >11.0 s/co ratio (0.0-0.9) H 01/06/20 08:18 HIV 1&2 Antibody NEGATIVE (NEGATIVE) 01/06/20 08:18 SARS-CoV-2 (PCR) NEGATIVE (NEGATIVE) 01/29/20 15:25 Impressions: Abdomen/Pelvis CT 01/05/20 22:33 IMPRESSION: No acute findings. Normal appendix. TECHNICAL DOCUMENTATION: Quality ID # [id number]: Final reports with documentation of one or more dose reduction techniques (e.g., Automated exposure control, adjustment of the mA and/or kV according to patient size, use of iterative reconstruction technique) copyright 2010 [employer]- All Rights Reserved Chest X-Ray 01/05/20 23:28 IMPRESSION: No acute cardiopulmonary abnormality copyright 2010 [employer]- All Rights Reserved PICC Line Insertion 01/14/20 08:00 IMPRESSION: SUCCESSFUL PLACEMENT OF A 5 FR DUAL LUMEN 39 CM PICC IN THE RIGHT BRACHIAL VEIN. Plan Time Spent: Greater than 30 Minutes Stroke Is this a Stroke Patient?: No Acute Heart Failure - Is this a Heart Failure Patient?: No
== END 2020-02-08 17:45 | disposition home or self-care (01) | DRG 872 ==
LOC: ER 21:20 → EH 01-06 03:36 → 4S 01-06 14:21
PROVIDERS: ADMIT Internal Medicine; ATTEND Internal Medicine
PROC: B24BZZ4 Ultrasonography of Heart with Aorta, Transesophageal (ICD-10-PCS; 2020-01-10)
PROC: 02HV33Z Insertion of Infusion Device into Superior Vena Cava, Percutaneous Approach (ICD-10-PCS; principal; 2020-01-14)
PROC: B548ZZA Ultrasonography of Superior Vena Cava, Guidance (ICD-10-PCS; 2020-01-14)
PROC: B518ZZA Fluoroscopy of Superior Vena Cava, Guidance (ICD-10-PCS; 2020-01-14)
DX: R78.81 Bacteremia (principal); F11.23 Opioid dependence with withdrawal; B18.2 Chronic viral hepatitis C; B95.61 Methicillin susceptible Staphylococcus aureus infection as the cause of diseases classified elsewhere; F32.9 Major depressive disorder, single episode, unspecified; M54.5 Low back pain; M51.37 Other intervertebral disc degeneration, lumbosacral region; R00.0 Tachycardia, unspecified; I95.9 Hypotension, unspecified; D72.829 Elevated white blood cell count, unspecified; R01.1 Cardiac murmur, unspecified; F41.9 Anxiety disorder, unspecified; Z82.49 Family history of ischemic heart disease and other diseases of the circulatory system; Z03.818 Encounter for observation for suspected exposure to other biological agents ruled out
CPT/HCPCS: 1922; 36415; 36573; 71045; 74177; 80048; 80053; 80074; 80307; 81001; 82962; 83605; 85025; 85027; 85610; 85652; 86140; 86701; 87040; 87077; 87150; 87186; 87635; 93005; 93010; 93306; 93312; 93325; 96361; 96365; 96375; 99291; 99292; C9803; J1642; J1644; J1885; J2543; J3490; J7030; J7050; J7060; J7120; S0032